=== PATIENT | female | born 1985 | race Caucasian/White ===

== ENCOUNTER 2021-08-20 10:51 | Inpatient (IN) | payer MEDICAID, SELFPAY ==
[2021-08-20 11:32] VITALS: BP 128/78; PULSE 89; RESP 14; TEMP 36.7; BMI 18.8
[2021-08-20 11:41] VITALS: BP 128/78; PULSE 89; RESP 14; TEMP 36.7
--- NOTE | 2021-08-20 11:46 | W.ED.GENADLT ---
HPI - General Adult General: Chief complaint: Psychiatric Symptoms Stated complaint: withdrawing, hallucinations Time Seen by Provider: 08/20/21 11:39 History of Present Illness: HPI: [35]yo patient w/ hx of depression and polysubstance dependence presenting for SI with depression and auditory hallucination. Last used marijuana and meth yesterday On arrival, the patient is AAOx3 and cooperative with my evaluation. No focal complaints of chest pain, shortness of breath, palpitations, N/V, focal GI/ complaints. Currently denies HI. No complaints of hallucinations. Onset: acute Duration: ongoing Location: home Severity: severe Associated symptoms: Deny chest pain, dyspnea, nausea, rash, palpitations or vomiting Review of Systems Const: Denies: fever(s) or chills Eyes: Denies: change in vision ENMT: Denies: mouth pain Card: Denies: chest pain or palpitations Resp: Denies: dyspnea or non-productive cough GI: Denies: abdominal pain, nausea, vomiting or diarrhea : Denies: dysuria Musc: Denies: extremity pain Skin/Breast: Denies: rash or new lesions Neuro: Denies: weakness in extremities Psych: Reports: depression and suicidal ideation Vinod/Lymph: Denies: easy bruising PFSH ED PFSH: Medical History (Updated 08/20/21 @ 11:50 by Myra Lam MD) Auditory hallucination Depression Social History (Updated 08/20/21 @ 11:50 by Myra Lam MD) Smoking and tobacco status: current every day smoker Alcohol intake: current Substance/Drug Use: current Physical Exam Const: COMMON NORMALS: alert HENMT: COMMON NORMALS: atraumatic HEAD & SCALP: atraumatic MOUTH: moist mucous membranes not abnormal Eye: COMMON NORMALS: EOMs intact bilaterally and conjunctivae normal CONJUNCTIVA: Yes conjunctivae normal Neck/C-Spine: COMMON NORMALS: full ROM and supple Resp: COMMON NORMALS: normal respiratory effort and clear to auscultation bilaterally AUSCULTATION: clear to auscultation bilaterally Cardio: COMMON NORMALS: regular rate RATE: regular rate GI: COMMON NORMALS: Soft to palpation and non-tender PALPATION: Yes Soft to palpation Extremity: COMMON NORMALS: full ROM Neuro: SENSORIUM/ORIENTATION: Yes alert MOTOR EXAM: No Abnormal motor strength present and Other motor observations present (no focal motor deficits) Psych: COMMON NORMALS: speech normal SPEECH: Yes normal speech MOOD & AFFECT: Yes depressed mood Course Vital Signs: Vital signs: Vital Signs Temperature 98.0 F 08/20/21 11:41 Pulse Rate 89 08/20/21 11:41 Respiratory Rate 14 08/20/21 11:41 Blood Pressure 128/78 08/20/21 11:41 MDM - General Adult Medical Decision Making [35]yo patient w/ hx of depression and polysubstance abuse presenting for SI with depression. HDS, exam within normal limit Thoughts are linear and organized, and the patient has no AH/VH, or HI. Clinically the patient displays no overt toxidrome; they are well appearing, with low suspicion for toxic ingestion given history and exam. Symptoms unlikely 2/2 anemia, hypothyroidism, infection, or ICH. Workup: CBC, CMP, Lipase, salicylate/tylenol, HCG, UDS, UA Lab findings: wnl [12:30pm] On reassessment, labs and workup wnl. Patient is hemodynamically stable with no acute medical complaints. Case discussed with psychiatric provider [] at [facility] psych inpatient with recommendation for admission Disposition: Psych Discharge Plan Discharge Patient Disposition: Admitted As Inpatient Clinical Impression: Depression with suicidal ideation, Auditory hallucination Condition: Stable Coding Level of Care Code ED Ways Operator for Keren Carrillo
[2021-08-20 12:43] LABS: Add Urine Culture? No; Add Urine Microscopic? YES; Bacteria Urine TRACE /hpf; Bilirubin Urine Neg (Negative); Blood Urine 2+ (Negative); Glucose Urine UA Norm (Normal); Ketones Urine Negative (Negative); Leukocyte Esterase Urine Negative (Negative); Nitrate Urine Negative (Negative); Protein Urine Neg (Negative); RBC Urine 0-4 /hpf (0-2); Specific Gravity, Urine 1.005 (1.005-1.030); Squamous Epithelial Cell Urine 0-4 /hpf (0-5); Urine Appearance Clear (CLEAR); Urine Color Yellow (Yellow); Urobilinogen Urine Norm (Negative); WBC Urine 0-4 /hpf (0-5); pH Urine 7 (5-7)
[2021-08-20 12:50] LABS: Amphetamines Screen Urine Positive (Negative); Barbiturates Screen Urine Negative (Negative); Benzodiazepines Screen Urine Negative (Negative); Cocaine Screen Urine Positive (Negative); Opiate Screen Urine Negative (Negative); PCP Screen Urine Negative (Negative); THC Screen Urine Positive (Negative)
[2021-08-20 13:01] VITALS: BP 125/81; PULSE 88; RESP 17; TEMP 36.8; O2SAT 98
[2021-08-20 13:09] VITALS: BP 128/78; PULSE 89; RESP 14; TEMP 36.7
[2021-08-20 14:00] VITALS: TEMP 36.7
[2021-08-20 14:01] LABS: Basophils # 0.1 10^3/uL (0.0-0.1); Basophils % 1.1 %; Eosinophils # 0.2 10^3/uL (0.0-0.8); Hematocrit 41.4 % (37.0-47.0); Hemoglobin 13.8 g/dL (11.5-15.3); Lymphocytes # 2.2 10^3/uL (0.8-4.8); Lymphocytes % 25.3 %; Mean Corpuscular HGB Conc 33.3 g/dL (30.0-36.0); Mean Corpuscular Hemoglobin 29.9 pg (28.0-34.0); Mean Corpuscular Volume 89.6 fl (81-99); Mean Platelet Volume 8.9 fL (7.4-10.4); Monocytes # 0.4 10^3/uL (0.2-0.9); Neutrophils # 5.69 10^3/uL (1.8-7.7); Neutrophils % 66.4 %; Nucleated Red Blood Cells % 0 %; Platelet Count 465 10^3/cmm (130-400); Red Blood Count 4.62 10^6/uL (4.1-5.3); Red Cell Distribution Width 13.2 % (12.1-15.1); White Blood Count 8.6 10^3/uL (4.0-10.0)
[2021-08-20 14:19] LABS: HCG, Serum Qual Negative (Negative)
--- NOTE | 2021-08-20 14:21 | PC.ADMIT ---
[id number] Admission Note: The patient,Barbara Poe,35 y/o, was given written information regarding hospital policies, unit procedures and contact persons. Patient's smoking status: current every day smoker. Vital Signs - 8 hr 08/20/21 11:32 08/20/21 11:41 08/20/21 13:01 Temperature 98.0 F 98.0 F 98.2 F Pulse Rate 89 89 88 Respiratory Rate 14 14 17 Blood Pressure 128/78 128/78 125/81 Pulse Oximetry 98 08/20/21 13:09 Temperature 98.0 F Pulse Rate 89 Respiratory Rate 14 Blood Pressure 128/78 Pulse Oximetry ADMITTED TO NPU AT 1300 FROM ER VIA WHEELCHAIR AND ER STAFF. STATES SHE IS HERE BECAUSE I'M WITHDRAWLING OFF METH, WEED, COCAINE AND I DID HEROIN A COUPLE DAYS AGO. DOC IS HEROIN BUT STATES I'LL DO ANYTHING THAT'S THERE, I'M TRYING TO HAVE FUN. REPORTS SHE MOVED FROM [facility] 3 DAYS AGO AND NOW LIVES WITH HER PARENTS HERE IN [place]. REPORTS SHE HAS STRUGGLED WITH ADDICTION SINCE SHE WAS A CHILD. CURRENTLY ON NO MEDICATIONS. REPORTS SHE USE TO TAKE SUBOXONE 8 MG TID AND METHADONE 30MG WHEN THE SUBOXONE STOPPED WORKING. ALLERGIC TO TRAMADOL AND SEROQUEL. PT STATES SHE WANTS TO GET BACK ON HER MEDICATION AND GET OFF DRUGS FOR GOOD. LONGEST CLEAN TIME WAS 30 DAYS. UDS + FOR THC, COCAINE AND METHAMPHETAMINE. ORIENTATED TO UNIT. ALL QUESTIONS ANSWERED AND SUPPORT VOICED.
[2021-08-20 14:27] LABS: Alanine Aminotransferase 14 U/L (0-33); Albumin Level 4.2 g/dL (3.5-5.2); Alkaline Phosphatase 65 IU/L (35-105); Anion Gap 11.7 (5-19); Aspartate Amino Transferase 28 U/L (0-32); Blood Urea Nitrogen 11 mg/dL (6-20); Carbon Dioxide 27 mmol/L (22-29); Chloride 104 mmol/L (98-107); Globulin 2.4 g/dL (1.3-4.6); Glomerular Filtration Rate 141.2 mL/min (90-130); Glucose 102 mg/dL (65-115); Lipase 35 U/L (13-60); Osmolality Calculated 288 mOsm/kg (285-295); Potassium 3.7 mmol/L (3.5-5.1); Sodium 139 mmol/L (136-145); Total Bilirubin 0.2 mg/dL (0.15-1.2); Total Protein 6.6 g/dL (6.6-8.7)
[2021-08-20 14:28] LABS: Acetaminophen < 5.0 ug/mL (10-30); Salicylate < 0.3 mg/dL (3-10)
[2021-08-20] MEDS: OLANZapine 5 mg ODT PO (16:27)
[2021-08-20 20:24] VITALS: PULSE 89; RESP 18; O2SAT 98
[2021-08-21 06:00] VITALS: BP 116/82; PULSE 74; RESP 17; O2SAT 97
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
[2021-08-21] MEDS: hyDROXYzine 25 mg Capsule 50 MG PO (11:38)
[2021-08-21 13:32] VITALS: BP 103/73; PULSE 104; RESP 17; TEMP 36.6; O2SAT 97
[2021-08-21] MEDS: buprenorphine-naloxone 4-1 mg Film 1 EACH SUBLINGUAL (14:25)
[2021-08-21] MEDS: nicotine 21 mg Patch 1 PATCH TRANSDERMA (15:11)
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
[2021-08-21 17:02] VITALS: BP 103/73; PULSE 104; RESP 17; TEMP 36.6; O2SAT 97
[2021-08-21] MEDS: ondansetron 4 MG Tablet PO (17:09)
--- NOTE | 2021-08-24 08:31 | PC.OT ---
OT EVALUATION ORDERS RECEIVED. PATIENT DISCHARGED BEFORE EVALUATION COULD BE COMPLETED
== END 2021-08-21 17:35 | disposition home or self-care (01) | DRG 897 ==
LOC: ER 11:45 → NP 12:41
PROVIDERS: Admitting Provider Psychiatry & Neurology Psychiatry; Emergency Provider Emergency Medicine; Visit Provider Psychiatry & Neurology Psychiatry
DX: F15.23 Other stimulant dependence with withdrawal (principal); R45.851 Suicidal ideations; F41.8 Other specified anxiety disorders; F12.10 Cannabis abuse, uncomplicated; F17.210 Nicotine dependence, cigarettes, uncomplicated; F43.10 Post-traumatic stress disorder, unspecified; F11.21 Opioid dependence, in remission
CPT/HCPCS: 80053; 80306; 80307; 81001; 83690; 84703; 85025; 99285; J0573; Q0162

== ENCOUNTER 2021-09-07 20:05 | Emergency (ER) | payer MEDICAID, SELFPAY ==
[2021-09-07 20:10] VITALS: BP 145/86; PULSE 96; RESP 16; TEMP 36.4; O2SAT 97
--- NOTE | 2021-09-07 20:17 | ED_ITS ---
HPI - Nausea/Vomiting/Diarrhea General: Chief complaint: Nausea/Vomiting/Diarrhea Stated complaint: N/V Blood Time Seen by Provider: 09/07/21 20:15 History of Present Illness: Ms. Poe is a 35-year-old lady with significant past medical history of hepatitis C who presents to the emergency department due to hematemesis. She reports 4 days ago having subacute onset of daily episodes of initially watery vomiting and associated abdominal discomfort with constipation. Since that time she has had persistent symptoms until today when she had an episode of bloody emesis. She does have burning epigastric pain. She used [id number] laxative and suppository and did have bowel movement today. Overall intensity symptoms is moderate. Course has persisted. Denies similar episodes in the past. Denies history of recent alcohol abuse. Patient is on methadone for history of opioid abuse. No other specific changes in health, exacerbating, or alleviating factors identified. Onset (ago): day(s) Description of vomiting: watery and bloody Associated nausea: Yes Associated abdominal pain: Yes Location of pain: Epigastric Pain consistency: constant Severity: moderate Quality: other Associated symtoms: Reports nausea Review of Systems General: Reports: 10 or more systems reviewed and unremarkable except in HPI and below GI: Reports: nausea PFSH ED PFSH: Medical History Auditory hallucination Depression Social History Smoking and tobacco status: current every day smoker Alcohol intake: current Physical Exam Const: COMMON NORMALS: alert GENERAL APPEARANCE: cooperative and well developed HENMT: COMMON NORMALS: normocephalic and atraumatic HEAD & SCALP: normocephalic and atraumatic Eye: COMMON NORMALS: conjunctivae normal CONJUNCTIVA: Yes conjunctivae normal SCLERA: sclerae normal Neck/C-Spine: COMMON NORMALS: supple GENERAL: Yes trachea midline Resp: COMMON NORMALS: normal respiratory effort and clear to auscultation bilaterally EFFORT & INSPECTION: Yes able to speak in complete sentences AUSCULTATION: clear to auscultation bilaterally Cardio: COMMON NORMALS: regular rate and regular rhythm RATE: regular rate RHYTHM: regular rhythm GI: COMMON NORMALS: Soft to palpation PALPATION: Yes Soft to palpation and No Tenderness to palpation present (GI) PERCUSSION: normal to percussion Extremity: GENERAL: Yes normal exam except as noted and No edema Neuro: COMMON NORMALS: moves all extremities SENSORIUM/ORIENTATION: Yes alert and No Orientation impaired Psych: COMMON NORMALS: mental status grossly normal and Normal thought process present THOUGHT PROCESS: Normal thought process present Skin: NARRATIVE SKIN EXAM: Bug bite on left neck posteriorly Course ED course: - Patient was seen and evaluated by me at bedside - Patient placed on cardiac monitors, IV access obtained - Initial evaluation notable for exam as above - Labs and xrays personally interpreted by me -Fluids, antiemetic, Protonix given - Labs notable for no leukocytosis, normal hemoglobin. Metabolic panel with perhaps mild evidence of dehydration, BUN normal as well as renal function. Urinalysis with mild hematuria. - Imaging notable for no lobar consolidation or pneumothorax. Constipation noted on CT without other acute pathology to explain symptoms - Upon serial reexamination after treatment the patient was improved though she did out of headache which also improved with treatment - Based on patient history, evaluation, and testing as interpreted the most likely cause of the patient's condition is hematemesis which occurred 1 episode prior to arrival. She had multiple episodes of emesis prior to this and also has epigastric burning pain. Given that she remained vitally satisfactory with normal hemoglobin and tolerated p.o. intake without recurrent emesis I believe that she can safely be discharged for outpatient follow-up with strict return precautions. Most likely etiology either esophagitis/gastritis or ulcer. - The results of ED evaluation were discussed with the patient including prescr iptions and/or symptomatic cares (if applicable) including appropriate and responsible use, followup plan, and return precautions. The patient verbalized understanding and felt safe for discharge. - Patient discharged in satisfactory condition. Note: Click bubbles or prepopulated saavedra in note writing are used for assistance with data collection and billing and are inherently more limited than narrative and other text portions of this note. Please use narrative for additional clinical history and defer to narrative/free test for any case of contradictory information. If information appears in only free text or click bubble it should be considered present or absent as reported. Please contact note insurance underwriter for clarifications of clinical information or contradictory information. MDM is a brief summary, contradictory or erroneous seeming information should be clarified and full note should be reviewed. Vital Signs: Vital signs: Vital Signs Temperature 97.5 F L 09/07/21 20:10 Pulse Rate 64 09/08/21 00:43 Respiratory Rate 16 09/08/21 00:43 Blood Pressure 101/53 09/08/21 00:43 Pulse Oximetry 94 09/08/21 00:43 MDM - Nausea/Vomiting/Diarrhea Medical Decision Making 35-year-old lady presenting with 4 days of emesis and constipation with 1 episode of hematemesis. No history of known cirrhosis though patient does have a history of hep C. Vitally satisfactory. Hemoglobin normal. No recurrence during ED observation and symptoms improved. Plan to discharge with outpatient surgery follow-up for consideration of EGD and initiate PPI. Strict return precautions given. Medical Records I reviewed the patient's medical records. Lab Data I reviewed the patient's lab results. : 09/07/21 20:32 09/07/21 20:32 Radiology Impressions Abdomen/Pelvis CT 09/07/21 20:46 IMPRESSION: 1. Increased fecal content in the colon. 2. Incidental/nonacute findings are listed in the report. Chest X-Ray 09/07/21 20:46 IMPRESSION: No acute cardiopulmonary process. Laboratory Results WBC 7.4 10^3/uL (4.0-10.0) 09/07/21 20:32 RBC 4.61 10^6/uL (4.1-5.3) 09/07/21 20:32 Hgb 13.7 g/dL (11.5-15.3) 09/07/21 20:32 Hct 40.6 % (37.0-47.0) 09/07/21 20:32 MCV 88.1 fl (81-99) 09/07/21 20:32 MCH 29.7 pg (28.0-34.0) 09/07/21 20:32 MCHC 33.7 g/dL (30.0-36.0) 09/07/21 20:32 RDW 12.9 % (12.1-15.1) 09/07/21 20:32 Plt Count 400 10^3/cmm (130-400) 09/07/21 20:32 MPV 9.5 fL (7.4-10.4) 09/07/21 20:32 Neut % (Auto) 50.7 % 09/07/21 20:32 Lymph % (Auto) 32.2 % 09/07/21 20:32 [place] % (Auto) 8.9 % 09/07/21 20:32 Eos % (Auto) 6.2 % 09/07/21 20:32 Baso % (Auto) 1.6 % 09/07/21 20:32 Neut # (Auto) 3.76 10^3/uL (1.8-7.7) 09/07/21 20:32 Lymph # (Auto) 2.4 10^3/uL (0.8-4.8) 09/07/21 20:32 [place] # (Auto) 0.7 10^3/uL (0.2-0.9) 09/07/21 20:32 Eos # (Auto) 0.5 10^3/uL (0.0-0.8) 09/07/21: Baso # (Auto) 0.1 10^3/uL (0.0-0.1) 09/07/21 20:32 Nucleated RBC % (auto) 0 % 09/07/21 20: Nucleated RBCs # 0.0 /100WBC 09/07/21 20:32 PT 12.80 SECONDS (12.1-14.9) 09/07/21 20:32 INR 0.93 (0.8-1.2) 09/07/21 20:32 Sodium 136 mmol/L (136-145) 09/07/21 20:32 Potassium 3.6 mmol/L (3.5-5.1) 09/07/21 20:32 Chloride 95 mmol/L (98-107) L 09/07/21 20:32 Carbon Dioxide 33 mmol/L (22-29) H 09/07/21 20:32 Anion Gap 11.6 (5-19) 09/07/21 20:32 BUN 8 mg/dL (6-20) 09/07/21 20:32 Creatinine 0.4 mg/dL (0.5-0.9) L 09/07/21 20:32 GFR Calculation 182.7 mL/min (90-130) H 09/07/21 20:32 Glucose 79 mg/dL (65-115) 09/07/21 20:32 Calculated Osmolality 279 mOsm/kg (285-295) L 09/07/21 20:32 Calcium 9.4 mg/dL (8.5-10.5) 09/07/21 20:32 Total Bilirubin 0.4 mg/dL (0.15-1.2) 09/07/21 20:32 AST 27 U/L (0-32) 09/07/21 20: ALT 19 U/L (0-33) 09/07/21 20:32 Alkaline Phosphatase 91 IU/L (35-105) 09/07/21 20: Total Protein 7.6 g/dL (6.6-8.7) 09/07/21 20: Albumin 5.0 g/dL (3.5-5.2) 09/07/21 20: Globulin 2.6 g/dL (1.3-4.6) 09/07/21 20: Lipase 41 U/L (13-60) 09/07/21 20: HCG, Qual Negative (Negative) 09/07/21 20: Urine Color Yellow (Yellow) 09/07/21 20: Urine Appearance Clear (CLEAR) 09/07/21 20: Urine pH 7 (5-7) 09/07/21 20: Ur Specific [place] 1.005 (1.005-1.030) 09/07/21 20: Urine Protein Neg (Negative) 09/07/21 20: Urine Glucose (UA) Norm (Normal) 09/07/21 20: Urine Ketones Negative (Negative) 09/07/21 20: Urine Blood 3+ (Negative) H 09/07/21 20: Urine Nitrate Negative (Negative) 09/07/21 20: Urine Bilirubin Neg (Negative) 09/07/21 20: Urine Urobilinogen Norm mg/dL (Negative) 09/07/21 20: Ur Leukocyte Esterase Negative (Negative) 09/07/21 20: Urine RBC 15-25 /hpf (0-2) H 09/07/21 20: Urine WBC 0-4 /hpf (0-5) H 09/07/21 20: Ur Squamous Epith Cells 0-4 /hpf (0-5) H 09/07/21 20: Amorphous Sediment 1+ /hpf 09/07/21 20: Urine Bacteria Trace /hpf (NONE) 09/07/21 20:26 Blood Type O Positive 09/07/21 20:32 Rho(D) Type Positive 09/07/21 20:32 Antibody Screen Negative 09/07/21 20:32 Discharge Plan Discharge Patient Disposition: Home Clinical Impression: Hematemesis, Constipation Condition: Stable Prescriptions: New Protonix 40 mg tablet,delayed release (DR/EC) 40 mg PO BID 14 Days Qty: 28 0RF Miralax 17 gram powder in packet 34 g PO DAILY 7 Days Qty: 14 0RF ondansetron 4 mg tablet,disintegrating 4 mg PO Q8H PRN (Reason: nausea and vomiting) Qty: 15 0RF Discharge Orders: Discharge ED (Routine); Ordered 09/08/21 Ordered By: Luis Manuel Washington Discharge Diet: Advance as tolerated and Clear Liquid Discharge Activity: Increase activity as tolerated Patient Instructions: Constipation (ED), Diet for Stomach Ulcers and Gastritis (ED), Hematemesis (ED) Activity Restrictions/Additional Instructions: Thank you for visiting the emergency department. You were seen and evaluated for vomiting blood. The exact cause of your symptoms is unclear though based on description of symptoms I suspect that you have either gastric ulcer or gastric irritation related to vomiting. Given laboratory findings and physical exam as well as vital signs I do not feel that you need inpatient management at this time. I will refer you for follow-up with general surgery for consideration of endoscopy. Additionally I will refer you for a primary care provider. I recommend clear liquid diet for the next day and then advance as tolerated. Please return to the emergency department for recurrent symptoms or anything else that you are concerned about and feel needs emergency department evaluation. 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
[2021-09-07 20:45] LABS: Basophils # 0.1 10^3/uL (0.0-0.1); Basophils % 1.6 %; Eosinophils # 0.5 10^3/uL (0.0-0.8); Eosinophils % 6.2 %; Hematocrit 40.6 % (37.0-47.0); Hemoglobin 13.7 g/dL (11.5-15.3); Lymphocytes # 2.4 10^3/uL (0.8-4.8); Lymphocytes % 32.2 %; Mean Corpuscular HGB Conc 33.7 g/dL (30.0-36.0); Mean Corpuscular Hemoglobin 29.7 pg (28.0-34.0); Mean Corpuscular Volume 88.1 fl (81-99); Mean Platelet Volume 9.5 fL (7.4-10.4); Monocytes # 0.7 10^3/uL (0.2-0.9); Monocytes % 8.9 %; Neutrophils # 3.76 10^3/uL (1.8-7.7); Neutrophils % 50.7 %; Nucleated Red Blood Cells % 0 %; Platelet Count 400 10^3/cmm (130-400); Red Blood Count 4.61 10^6/uL (4.1-5.3); Red Cell Distribution Width 12.9 % (12.1-15.1); White Blood Count 7.4 10^3/uL (4.0-10.0)
--- NOTE | 2021-09-07 20:46 | XRR_ITS ---
PROCEDURE INFORMATION: Exam: XR Chest Exam date and time: 09/07/2021 9:09 PM Age: 35 years old Clinical indication: Cough; Additional info: SOB, hematemesis TECHNIQUE: Imaging protocol: XR of the chest. Views: 1 view. COMPARISON: CT Abdomen/Pelvis Renal [id number] 08/01/2015 12:10 PM FINDINGS: Lungs: Lungs are clear bilaterally. Pleural spaces: No pleural effusion. No pneumothorax. Heart/Mediastinum: The cardiac silhouette and mediastinal contours are unremarkable. Bones/joints: Unremarkable for age. XR/XR chest 1V portable [id number] IMPRESSION: No acute cardiopulmonary process.
--- NOTE | 2021-09-07 20:46 | CTR_ITS ---
PROCEDURE INFORMATION: Exam: CT Abdomen And Pelvis With Contrast Exam date and time: 09/07/2021 9:23 PM Age: 35 years old Clinical indication: Constipation and vomiting; Patient HX: Hematemesis with no bm x 4 days. History of hep c. ; Additional info: Epigastric pain, hematemesis, HX hep c TECHNIQUE: Imaging protocol: Computed tomography of the abdomen and pelvis with contrast. Sagittal and coronal reformatted images were created and reviewed. Radiation optimization: All CT scans at this facility use at least one of these dose optimization techniques: automated exposure control; mA and/or kV adjustment per patient size (includes targeted exams where dose is matched to clinical indication); or iterative reconstruction. Contrast material: OMNI 350; Contrast volume: 75 ml; Contrast route: INTRAVENOUS (IV); COMPARISON: CT Abdomen/Pelvis Renal [id number] 08/01/2015 12:10 PM RADIATION DOSE METRICS: Total DLP (mGy-cm): 782.42 FINDINGS: Lungs: Visualized lungs are clear. Pleural spaces: No pleural effusion. Heart: Visualized portions of the heart are unremarkable. Liver: The liver is unremarkable. Gallbladder and bile ducts: The gallbladder is unremarkable. No biliary ductal dilatation. Pancreas: The pancreas is unremarkable. No pancreatic ductal dilatation. Spleen: The spleen is unremarkable. Adrenal glands: The right and left adrenal glands are unremarkable. Kidneys and ureters: The right and left kidneys are unremarkable. The right and left ureters are unremarkable. Stomach and bowel: No obstruction. No mucosal thickening. Increased fecal content in the colon. Appendix: The appendix is visualized and is unremarkable. No findings to suggest acute appendicitis. Intraperitoneal space: No free intraperitoneal air. No ascites. No loculated fluid collections to suggest an abscess. Vasculature: No evidence for aortic aneurysm or aortic dissection. Hepatic veins, portal veins, splenic vein, and SMV are patent. Lymph nodes: No lymphadenopathy. Urinary bladder: The bladder is incompletely filled, which can limit evaluation. No focal abnormality in the bladder however. Reproductive: The uterus is unremarkable. Multiple subcentimeter follicles in both right and left ovaries. Bones/joints: Mild degenerative changes in the visualized spine. Mild degenerative changes at both the right and left hips. Soft tissues: Unremarkable. CT/CT abdomen pelvis w con* [id number] IMPRESSION: 1. Increased fecal content in the colon. 2. Incidental/nonacute findings are listed in the report.
[2021-09-07 21:04] LABS: INR 0.93 (0.8-1.2)
[2021-09-07 21:06] LABS: HCG, Serum Qual Negative (Negative)
[2021-09-07 21:08] LABS: Alanine Aminotransferase 19 U/L (0-33); Alkaline Phosphatase 91 IU/L (35-105); Anion Gap 11.6 (5-19); Aspartate Amino Transferase 27 U/L (0-32); Blood Urea Nitrogen 8 mg/dL (6-20); Calcium 9.4 mg/dL (8.5-10.5); Carbon Dioxide 33 mmol/L (22-29); Chloride 95 mmol/L (98-107); Globulin 2.6 g/dL (1.3-4.6); Glomerular Filtration Rate 182.7 mL/min (90-130); Glucose 79 mg/dL (65-115); Lipase 41 U/L (13-60); Osmolality Calculated 279 mOsm/kg (285-295); Potassium 3.6 mmol/L (3.5-5.1); Sodium 136 mmol/L (136-145); Total Bilirubin 0.4 mg/dL (0.15-1.2); Total Protein 7.6 g/dL (6.6-8.7)
[2021-09-07] MEDS: pantoprazole 40 mg SDV 80 MG IVP (21:08)
[2021-09-07] MEDS: ondansetron 2 mg/ML SDV 2 mL 4 MG IVP (21:08)
[2021-09-07] MEDS: sodium chloride 0.9% 1,000 ML 999 ML IV (21:10)
[2021-09-07] MEDS: iohexol 300 mg/mL 100 mL Btl IV (21:24)
[2021-09-07 21:25] LABS: Add Urine Microscopic? YES; Bilirubin Urine Neg (Negative); Blood Urine 3+ (Negative); Glucose Urine UA Norm (Normal); Ketones Urine Negative (Negative); Leukocyte Esterase Urine Negative (Negative); Nitrate Urine Negative (Negative); Protein Urine Neg (Negative); Specific Gravity, Urine 1.005 (1.005-1.030); Urine Appearance Clear (CLEAR); Urine Color Yellow (Yellow); Urobilinogen Urine Norm (Negative); pH Urine 7 (5-7)
[2021-09-07 21:26] LABS: Add Urine Culture? Yes; Amorphous Sediment Urine 1+ /hpf; Bacteria Urine TRACE /hpf; RBC Urine 15-25 /hpf (0-2); Squamous Epithelial Cell Urine 0-4 /hpf (0-5); WBC Urine 0-4 /hpf (0-5)
[2021-09-07] MEDS: lidocaine 2% viscous 15 ML, aluminum-mag hydrox-simethicon 30 ML, sucralfate oral liq 1 GM PO (21:59)
[2021-09-07 22:00] VITALS: BP 102/59; PULSE 65; O2SAT 99
[2021-09-07 23:00] VITALS: BP 95/45; PULSE 79; O2SAT 95
[2021-09-07] MEDS: ketorolac 30 mg/mL INJ 15 MG IVP (23:33)
[2021-09-07] MEDS: acetaminophen 500 mg Tablet 1000 MG PO (23:33)
[2021-09-08] VITALS: BP 101/53; PULSE 64; O2SAT 94
[2021-09-08 00:43] VITALS: BP 101/53; PULSE 64; RESP 16; O2SAT 94
--- NOTE | 2021-09-08 14:18 | DCPLANNER ---
Addendum entered by Aleisha Wayne 10/15/21 17:14: care manager was sent the following message about patient referral: Patient will call us when she has everything lined out. She stated she just moved here and she doesn't have any money right now and wanting to get her Financial means underway before scheduling. Original Note: care manager had message to schedule a follow up appointment for patient with general surgery. care manager sent patients information to the front office staff at general surgery. Patients information will be printed and reviewed. Clinic will call patient with appointment information. care manager also had message to speak with patient about getting established with a primary care physician. care manager unable to speak with patient at this time.
== END 2021-09-08 00:44 | disposition home or self-care (01) ==
PROVIDERS: Physician Assistant; Emergency Provider Emergency Medicine
DX: K92.0 Hematemesis (principal); K59.00 Constipation, unspecified; R10.13 Epigastric pain; Z86.19 Personal history of other infectious and parasitic diseases
CPT/HCPCS: 71045; 74177; 80053; 81001; 83690; 84703; 85025; 85610; 86850; 86900; 87086; 96361; 96374; 96375; 99284; C9113; J1885; J2405; J7030; Q9967

== ENCOUNTER 2021-12-14 18:22 | Inpatient (IN) | payer BC, SELFPAY ==
[2021-12-14 18:27] VITALS: BMI 21.4
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
[2021-12-14 19:00] LABS: Basophils # 0.1 10^3/uL (0.0-0.1); Basophils % 0.6 %; Eosinophils % 0.4 %; Hemoglobin 13.3 g/dL (11.5-15.3); Lymphocytes # 2.5 10^3/uL (0.8-4.8); Lymphocytes % 26.7 %; Mean Corpuscular HGB Conc 33.3 g/dL (30.0-36.0); Mean Corpuscular Hemoglobin 29.2 pg (28.0-34.0); Mean Corpuscular Volume 87.9 fl (81-99); Mean Platelet Volume 9.5 fL (7.4-10.4); Monocytes # 0.6 10^3/uL (0.2-0.9); Monocytes % 5.9 %; Neutrophils # 6.11 10^3/uL (1.8-7.7); Neutrophils % 66.2 %; Nucleated Red Blood Cells % 0 %; Platelet Count 377 10^3/cmm (130-400); Red Blood Count 4.55 10^6/uL (4.1-5.3); Red Cell Distribution Width 12.1 % (12.1-15.1); White Blood Count 9.3 10^3/uL (4.0-10.0)
[2021-12-14] MEDS: hyDROXYzine 25 mg Capsule PO (19:19)
[2021-12-14 19:21] LABS: HCG Qualitative Urine. Negative (Negative)
[2021-12-14 19:23] LABS: Alanine Aminotransferase 38 U/L (0-33); Albumin Level 4.2 g/dL (3.5-5.2); Alkaline Phosphatase 102 U/L (35-105); Anion Gap 14.5 (5-19); Aspartate Amino Transferase 43 U/L (0-32); Blood Urea Nitrogen 10 mg/dL (6-20); Calcium 9.5 mg/dL (8.5-10.5); Carbon Dioxide 24 mmol/L (22-29); Chloride 102 mmol/L (98-107); Globulin 2.6 g/dL (1.3-4.6); Glomerular Filtration Rate 113.8 mL/min (90-130); Glucose 107 mg/dL (65-115); Osmolality Calculated 284 mOsm/kg (285-295); Potassium 3.5 mmol/L (3.5-5.1); Sodium 137 mmol/L (136-145); Total Bilirubin 0.3 mg/dL (0.15-1.2); Total Protein 6.8 g/dL (6.6-8.7)
[2021-12-14 19:25] LABS: Acetaminophen < 5.0 ug/mL (10-30); Salicylate < 0.3 mg/dL (3-10)
[2021-12-14 19:38] LABS: SARS Covid-2 Antigen Negative (Negative)
[2021-12-14 20:23] LABS: Blood Urine 3+ (Negative); Glucose Urine UA Norm (Normal); Ketones Urine 1+ (Negative); Protein Urine Trace (Negative); Urine Appearance Cloudy (CLEAR); Urine Color Yellow (Yellow); pH Urine 5 (5-7)
[2021-12-14 20:24] LABS: Add Urine Microscopic? YES; Bilirubin Urine 1+ (Negative); Leukocyte Esterase Urine Trace (Negative); Nitrate Urine Negative (Negative); Urobilinogen Urine 1 mg/dL (Negative)
[2021-12-14 20:28] LABS: Amphetamines Screen Urine Negative (Negative); Barbiturates Screen Urine Negative (Negative); Benzodiazepines Screen Urine Negative (Negative); Cocaine Screen Urine Negative (Negative); Opiate Screen Urine Negative (Negative); PCP Screen Urine Negative (Negative); THC Screen Urine Positive (Negative)
[2021-12-14 20:30] LABS: RBC Urine 15-25 /hpf (0-2); Squamous Epithelial Cell Urine TOO NUMEROUS TO CNT /hpf (0-5); WBC Urine 0-4 /hpf (0-5)
[2021-12-14 20:31] LABS: Add Urine Culture? No; Amorphous Sediment Urine 1+ /hpf; Bacteria Urine 1+ /hpf
--- NOTE | 2021-12-14 20:53 | PC.NURSE ---
Ntfd pt that we do not have a rehab unit and that it would be best for her to seek help from [facility] in [place]. Offered to give pt handouts with info about [facility]. Pt states If I go home then I will hurt myself . Ntfd provider.
[2021-12-14 21:51] VITALS: BP 105/56; PULSE 80; RESP 16; O2SAT 97
[2021-12-14 22:45] VITALS: BP 105/58; PULSE 69; RESP 16; TEMP 36.7; O2SAT 99
--- NOTE | 2021-12-15 02:58 | ECG_ITS ---
[facility] Test Date: 2021-12-15 Pat Name: Barbara Poe Department: Room: Gender: Female [employer]: : 1985 Requested By: Elie Yadav Order Number: [id number] Kristin MD: Phyllis Washington M.D. Measurements Intervals [place] Rate: 53 P: 67 [place]: 174 QRS: 70 QRSD: 82 T: 69 QT: 418 QTc: 396 Interpretive Statements SINUS BRADYCARDIA WITH SINUS ARRHYTHMIA No previous ECG available for comparison Electronically Signed On 12-15-2021 12:47:12 CDT by Phyllis Washington M.D. [email or web address]
[2021-12-15 06:23] VITALS: BP 109/59; PULSE 78; RESP 16; O2SAT 98
[2021-12-15] MEDS: LORazepam 2 mg Tablet PO (07:33)
[2021-12-15 09:09] VITALS: BP 90/56; PULSE 94; O2SAT 98
[2021-12-15 13:30] VITALS: RESP 16; O2SAT 98
[2021-12-15] MEDS: multivitamin therapeutic Tablet 1 TAB PO (13:30)
[2021-12-15] MEDS: thiamine 100 mg Tablet PO (13:30)
[2021-12-15] MEDS: methadone 10 mg Tablet 90 MG PO (13:30)
[2021-12-15] MEDS: folic acid 1 mg Tablet PO (13:30)
[2021-12-15] MEDS: venlafaxine ER (24HR) 75 mg Capsule PO (13:30)
[2021-12-15 14:00] VITALS: BP 102/59; PULSE 63; RESP 16; TEMP 36.8; O2SAT 97
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
[2021-12-15] MEDS: nicotine 2 mg Gum BUCCAL (16:47)
[2021-12-15] MEDS: hyDROXYzine 25 mg Capsule 50 MG PO ×2 (19:02→21:27)
[2021-12-15 20:20] VITALS: BP 110/72; PULSE 69; RESP 18; TEMP 36.5; O2SAT 99
[2021-12-15] MEDS: trazodone 50 mg Tablet PO (21:25)
[2021-12-15] MEDS: OLANZapine 5 mg ODT PO (21:25)
[2021-12-16 06:00] VITALS: BP 77/43; PULSE 63; RESP 17; TEMP 36.7; O2SAT 97
[2021-12-16 06:55] VITALS: BP 80/47
[2021-12-16 09:45] VITALS: RESP 16
[2021-12-16] MEDS: folic acid 1 mg Tablet PO (09:45)
[2021-12-16] MEDS: venlafaxine ER (24HR) 75 mg Capsule PO (09:45)
[2021-12-16] MEDS: methadone 10 mg Tablet 90 MG PO (09:45)
[2021-12-16] MEDS: thiamine 100 mg Tablet PO (09:45)
[2021-12-16] MEDS: multivitamin therapeutic Tablet 1 TAB PO (09:45)
[2021-12-16 14:00] VITALS: BP 102/64; PULSE 64; RESP 16; TEMP 36.8; O2SAT 97
[2021-12-16] MEDS: propranolol 20 mg Tablet PO (14:16)
[2021-12-16] MEDS: nicotine 2 mg Gum BUCCAL ×2 (14:16→20:10)
[2021-12-16] MEDS: nicotine 4 mg lozenge MUCOUS MEM ×2 (15:23→20:22)
--- NOTE | 2021-12-16 18:26 | P.NPUPN_ITS ---
Subjective NPU Subjective: Patient is today reporting that things are going a little better. She connected with the treatment team and was very happy to have a list of the resources in town including shelters and sober living facilities. Reports medications are working fine and she is working with the team to figure out the best option for her that would allow her to continue to work and continue to get to her appointments at the methadone clinic. We discussed the risk benefits and alternatives of initiating propranolol 20 mg p.o. 3 times daily as needed and she understood and agreed proceed as documented in this note. Mental Status Exam MSE Comments: This is a underweight white female in hospital scrubs with adeq uate grooming and eye contact. No abnormal movements. Cooperative with exam in mild distress. Speech was normal rate and volume. Mood described as okay but anxious, affect congruent. Thought process organized, thought content: patient denies suicidal or homicidal ideation, there were no delusions reported or noted, she denied any auditory or visual hallucinations. Attention and concentration were intact and memory appeared reliable but none were formally tested. She?s alert and oriented times three. Insight and judgment appeared fair and impulse control appeared fair Vitals/I&O/Wt Last Vital Signs Temp 98.3 F 12/16/21 20:38 Pulse 67 12/16/21 20:38 Resp 17 12/16/21 20:38 BP 112/65 12/16/21 20:38 Pulse Ox 94 12/16/21 20:38 O2 Del Method 12/15/21 09:25 Data NPU : 12/14/21 18:49 12/14/21 18:49 A&P Assessment and plan (1) Depression with suicidal ideation: Status: Resolved (2) PTSD (post-traumatic stress disorder): Status: Acute (3) Opioid use disorder, severe, in early remission: Status: Acute (4) Methamphetamine use disorder, severe: Status: Acute (5) Suicidal ideation: Status: Acute (6) Depression: Status: Acute Plan This is a 36 ssaelqy-lalo-pea white female with a long history of addiction, trauma and depression who presents after a conflict with her father that led to her being in intermediate, now homeless and looking to be connected to resources. 1. Continue current medication including methadone and Effexor XR. Start propranolol 10 mg p.o. 3 times daily as needed. 2. Continue every 15 minute checks for safety. 3. Encourage individual, group and milieu therapies. 4. Encourage sober living treatment after discharge at the highest level of care to which he is willing to commit. 5. We will collaborate with social work team to assist in finding safe discharge options. Involuntary Hold Information 96 Hour Hold: 96 Hour Involuntary Admission: No Attestations NPU Medical Necessity Statement*: Inpatient hospitalization is medically necessary and the clinically appropriate intervention at this time. We will monitor me dication to make changes as indicated. Likely length of stay 3 to 5 days. Coding Level of Care Code Acute [employer] Maintainer for [facility] Fwd Diagnoses Depression with suicidal ideation F32.A; R45.851 PTSD (post-traumatic stress disorder) F43.10 Opioid use disorder, severe, in early remission F11.21 Methamphetamine use disorder, severe F15.20 Suicidal ideation R45.851 Depression F32.A
[2021-12-16] MEDS: hyDROXYzine 25 mg Capsule 50 MG PO (20:10)
[2021-12-16] MEDS: trazodone 50 mg Tablet PO (20:10)
[2021-12-16 20:38] VITALS: BP 112/65; PULSE 67; RESP 17; TEMP 36.8; O2SAT 94
[2021-12-17 07:20] VITALS: BP 103/66; PULSE 67; RESP 14; TEMP 36.9; O2SAT 98
[2021-12-17 08:22] VITALS: RESP 17; O2SAT 94
[2021-12-17] MEDS: methadone 10 mg Tablet 90 MG PO (08:22)
[2021-12-17] MEDS: nicotine 4 mg lozenge MUCOUS MEM ×3 (08:24→15:14)
[2021-12-17] MEDS: venlafaxine ER (24HR) 75 mg Capsule PO ×2 (08:25→11:30)
[2021-12-17] MEDS: thiamine 100 mg Tablet PO (08:25)
[2021-12-17] MEDS: propranolol 20 mg Tablet PO ×2 (08:25→16:20)
[2021-12-17] MEDS: folic acid 1 mg Tablet PO (08:25)
[2021-12-17] MEDS: multivitamin therapeutic Tablet 1 TAB PO (08:25)
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
[2021-12-17 14:00] VITALS: BP 96/65; PULSE 72; RESP 16; TEMP 36.7; O2SAT 97
[2021-12-17 19:36] VITALS: BP 101/64; PULSE 68; RESP 16; TEMP 36.8; O2SAT 100
[2021-12-17] MEDS: hyDROXYzine 25 mg Capsule 50 MG PO (20:14)
[2021-12-17] MEDS: trazodone 50 mg Tablet PO (22:01)
[2021-12-18 06:00] VITALS: BP 100/66; PULSE 65; RESP 18; TEMP 36.7; O2SAT 100
[2021-12-18 09:39] VITALS: RESP 18
[2021-12-18] MEDS: venlafaxine ER (24HR) 150 mg Capsule PO (09:39)
[2021-12-18] MEDS: thiamine 100 mg Tablet PO (09:39)
[2021-12-18] MEDS: methadone 10 mg Tablet 90 MG PO (09:39)
[2021-12-18] MEDS: multivitamin therapeutic Tablet 1 TAB PO (09:39)
[2021-12-18] MEDS: folic acid 1 mg Tablet PO (09:39)
[2021-12-18] MEDS: nicotine 4 mg lozenge MUCOUS MEM ×2 (11:12→17:52)
[2021-12-18 14:00] VITALS: BP 125/83; PULSE 62; RESP 16; TEMP 36.8; O2SAT 97
[2021-12-18] MEDS: hyDROXYzine 25 mg Capsule 50 MG PO ×2 (15:01→20:22)
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
[2021-12-18 20:15] VITALS: BP 117/75; PULSE 67; RESP 16; TEMP 37.6; O2SAT 98
[2021-12-18] MEDS: trazodone 50 mg Tablet PO (20:22)
[2021-12-19 06:00] VITALS: BP 93/49; PULSE 52; RESP 16; TEMP 36.9; O2SAT 95; BMI 21.4
[2021-12-19 08:43] VITALS: RESP 18; O2SAT 98
[2021-12-19] MEDS: folic acid 1 mg Tablet PO (08:43)
[2021-12-19] MEDS: methadone 10 mg Tablet 90 MG PO (08:43)
[2021-12-19] MEDS: thiamine 100 mg Tablet PO (08:43)
[2021-12-19] MEDS: multivitamin therapeutic Tablet 1 TAB PO (08:43)
[2021-12-19] MEDS: venlafaxine ER (24HR) 150 mg Capsule PO (08:43)
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
[2021-12-19] MEDS: nicotine 21 mg Patch 1 PATCH TRANSDERMA (09:41)
[2021-12-19] MEDS: acetaminophen 325 mg Tablet 650 MG PO (12:52)
[2021-12-19 14:00] VITALS: BP 102/59; PULSE 72; RESP 16; TEMP 36.8; O2SAT 99
[2021-12-19] MEDS: nicotine 4 mg lozenge MUCOUS MEM ×2 (15:24→20:30)
[2021-12-19 20:01] VITALS: BP 97/59; PULSE 70; RESP 14; TEMP 36.6; O2SAT 100
[2021-12-19] MEDS: hyDROXYzine 25 mg Capsule 50 MG PO (20:30)
[2021-12-20 06:00] VITALS: BP 101/61; PULSE 63; RESP 14; TEMP 36.4; O2SAT 95
[2021-12-20] MEDS: nicotine 21 mg Patch 1 PATCH TRANSDERMA (08:33)
[2021-12-20] MEDS: acetaminophen 325 mg Tablet 650 MG PO (08:33)
[2021-12-20 08:34] VITALS: RESP 18; O2SAT 96
[2021-12-20] MEDS: venlafaxine ER (24HR) 150 mg Capsule PO (08:34)
[2021-12-20] MEDS: methadone 10 mg Tablet 90 MG PO (08:34)
[2021-12-20] MEDS: thiamine 100 mg Tablet PO (08:34)
[2021-12-20] MEDS: multivitamin therapeutic Tablet 1 TAB PO (08:34)
[2021-12-20] MEDS: folic acid 1 mg Tablet PO (08:34)
[2021-12-20 14:00] VITALS: BP 109/63; PULSE 67; RESP 18; TEMP 36.6; O2SAT 97
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
[2021-12-20 15:19] VITALS: BP 109/63; PULSE 67; RESP 18; TEMP 36.6; O2SAT 97
== END 2021-12-20 16:25 | disposition home or self-care (01) | DRG 881 ==
LOC: ER 12-15 08:11 → NP 12-15 13:56
PROVIDERS: Student in an Organized Health Care Education/Training Program; Admitting Provider Psychiatry & Neurology Psychiatry; Emergency Provider Family Medicine; Visit Provider Psychiatry & Neurology Psychiatry
DX: F32.A Depression, unspecified (principal); R44.0 Auditory hallucinations; R45.851 Suicidal ideations; F15.20 Other stimulant dependence, uncomplicated; F11.20 Opioid dependence, uncomplicated; F43.10 Post-traumatic stress disorder, unspecified; F17.210 Nicotine dependence, cigarettes, uncomplicated; Z81.8 Family history of other mental and behavioral disorders; Z59.00 Homelessness unspecified
CPT/HCPCS: 80053; 80306; 80307; 81001; 81025; 85025; 87426; 93005; 97150; 97165; 99285

== ENCOUNTER → 2023-08-01 10:11 | Outpatient (BNVA) | payer BC, MEDICAID, SELFPAY | PROVIDERS: PCP Family Medicine; Referring Provider Nurse Practitioner Psychiatric/Mental Health; Visit Provider Internal Medicine Cardiovascular Disease | DX: Z79.899 Other long term (current) drug therapy (principal) | CPT/HCPCS: 93005 ==

== ENCOUNTER → 2023-08-16 08:48 | Outpatient (BNVA) | payer BC, MEDICAID, SELFPAY | PROVIDERS: PCP Family Medicine; Visit Provider Nurse Practitioner Psychiatric/Mental Health | DX: R94.31 Abnormal electrocardiogram [ECG] [EKG] (principal); Z79.899 Other long term (current) drug therapy; F43.12 Post-traumatic stress disorder, chronic; F11.20 Opioid dependence, uncomplicated; F15.11 Other stimulant abuse, in remission; F12.90 Cannabis use, unspecified, uncomplicated; F17.290 Nicotine dependence, other tobacco product, uncomplicated | CPT/HCPCS: 80053; 80061; 80307; 83036 ==

== ENCOUNTER 2023-11-08 01:35 | Emergency (ER) | payer BC, MEDICAID, SELFPAY ==
[2023-11-08] VITALS (10 sets, daily range): BP systolic 106–133; BP diastolic 62–74; PULSE 58–74; RESP 10–19; TEMP 36.7; O2SAT 94–100; BMI 19.7
[2023-11-08 01:54] LABS: Basophils # 0.1 10^3/uL (0.0-0.1); Eosinophils # 0.1 10^3/uL (0.0-0.8); Eosinophils % 0.4 %; Hematocrit 47.5 % (36-47); Lymphocytes # 2.9 10^3/uL (0.8-4.8); Lymphocytes % 24.7 %; Mean Corpuscular HGB Conc 32.6 g/dL (30-55); Monocytes # 0.5 10^3/uL (0.2-0.9); Neutrophils # 8.21 10^3/uL (1.8-7.7); Neutrophils % 69.7 %; Nucleated Red Blood Cells % 0 %; Platelet Count 341 10^3/cmm (157-399); Red Blood Count 5.34 10^6/uL (3.85-5.65); Red Cell Distribution Width 12.5 % (12.1-15.1); White Blood Count 11.78 10^3/uL (3.29-11.43)
[2023-11-08 02:10] LABS: HCG, Serum Qual Negative (Negative)
[2023-11-08 02:20] LABS: Alanine Aminotransferase 12 U/L (0-33); Albumin Level 4.9 g/dL (3.5-5.2); Alkaline Phosphatase 88 U/L (35-105); Anion Gap 25.8 (5-19); Aspartate Amino Transferase 19 U/L (0-32); Blood Urea Nitrogen 21 mg/dL (6-20); Calcium 10.3 mg/dL (8.5-10.5); Carbon Dioxide 18 mmol/L (22-29); Chloride 99 mmol/L (98-107); Creatinine Clr Calc Pharmacy 82.3919; Glomerular Filtration Rate 81.2 mL/min (90-130); Glucose 70 mg/dL (65-115); Lipase 58 U/L (13-60); Osmolality Calculated 289 mOsm/kg (285-295); Potassium 3.8 mmol/L (3.5-5.1); Sodium 139 mmol/L (136-145); Total Bilirubin 0.7 mg/dL (0.15-1.2); Total Protein 7.9 g/dL (6.6-8.7)
[2023-11-08 02:27] LABS: Procalcitonin 0.07 ng/mL (0-0.5)
[2023-11-08 02:28] LABS: Lactic Sepsis W/Reflex 4.8 mmol/L (0.5-2.2)
--- NOTE | 2023-11-08 02:41 | W.ED.WEAKNES ---
HPI - Weakness General: Chief complaint: Weakness Stated complaint: WEAKNESS Time Seen by Provider: 11/08/23 01:38 History of Present Illness: 37-year-old female with history of chronic pain syndrome methadone who presents emergency room with nausea and vomiting and dysuria. She says she been feeling bad for couple days now. She had been keeping things down. Said she became so weak she could barely move. No altered mental status. No focal motor deficits. No chest pain. No focal abdominal pain. No diarrhea. Review of Systems Narrative: Constitutional symptoms: Negative except as documented in HPI. Skin symptoms: Negative except as documented in HPI. Eye symptoms: Negative except as documented in HPI. ENMT symptoms: Negative except as documented in HPI. Respiratory symptoms: Negative except as documented in HPI. Cardiovascular symptoms: Negative except as documented in HPI. Gastrointestinal symptoms: Negative except as documented in HPI. Genitourinary symptoms: Negative except as documented in HPI. Musculoskeletal symptoms: Negative except as documented in HPI. Neurologic symptoms: Negative except as documented in HPI. Psychiatric symptoms: Negative except as documented in HPI. Endocrine symptoms: Negative except as documented in HPI. PFS ED PFSH: Medical History (Updated 11/08/23 @ 04:43 by Sarah Reyes MD) Methamphetamine abuse in remission Marijuana use, episodic Vaping nicotine dependence, tobacco product Long-term current use of methadone for opiate dependence Chronic post-traumatic stress disorder Psychiatric care Social History Smoking and tobacco/nicotine status: current every day tobacco/nicotine user Alcohol intake: current Substance/Drug Use: current Female Reproductive History: Date of last menstrual period: 10/09/23 Physical Exam Narrative: EXAM NARRATIVE: General: Alert, no acute distress. Skin: Warm, dry. Head: Normocephalic, atraumatic. Neck: Supple, trachea midline. Eye: Extraocular movements are intact. Ears, nose, mouth and throat: Dry oral mucosa Cardiovascular: Regular, Normal peripheral perfusion. Respiratory: Lungs are clear to auscultation, respirations are non-labored, breath sounds are equal, Symmetrical chest wall expansion. Gastrointestinal: Soft, Nontender, Non distended Musculoskeletal: Normal ROM, no deformity. Neurological: Alert and oriented, No focal neurological deficit observed. Psychiatric: Cooperative, appropriate mood & affect. Course Vital Signs: Vital signs: Vital Signs Temperature 98.0 F 11/08/23 01:36 Pulse Rate 70 11/08/23 01:36 Respiratory Rate 18 11/08/23 01:36 Blood Pressure 114/71 11/08/23 01:36 Pulse Oximetry 100 11/08/23 01:36 Oxygen Delivery Me thod Room Air 11/08/23 01:36 MDM - Weakness Medical Decision Making Medical decision making: Differential diagnosis for patient presenting with generalized weakness including but not limited to and based on the above HPI, review of systems and physical exam: Sepsis. Dehydration. Renal failure. Electrolyte abnormalities. Anemia. Congestive heart failure. Hypotension. Coronary syndrome. Hepatitis. Cirrhosis. Infections such as pneumonia, urinary tract infection, [place]ne illness, Cellulitis, Viral infections including influenza and Covid-19. Workup: labwork and lab/exam driven imaging ordered to evaluate, rule in and rule out above pathologies. EKG: Time 1:48 AM. Rate 56. Sinus bradycardia, No ST-T changes, no ectopy, normal UT & QRS intervals, This was reviewed and interpreted by myself the ER physician at 1:50 AM Lab Review: Laboratory results were reviewed and interpreted by myself the emergency room physician. Leukocytosis with white count of 12,000. BUN is elevated at 21 with creatinine is 0.8. This would indicate some dehydration. Lipase is negative. Liver enzymes are normal. Urine only has 0-5 whites. But she has symptoms and so treating for urinary tract infection. Also could be marijuana use is causing her vomiting. She has no pain in her abdomen. So not doing any imaging. Lipase was negative. I reviewed the patient's medical record. Reexamination: Patient remained stable. No increased work of breathing. No altered mental status. No focal motor deficits. Assessment and plan: Vomiting Dehydration Urinary tract infection ?2 L normal saline bolus and cefepime in the emergency room. Home on Keflex. - Discharged home - Discussed findings and plan with patient. Answered any questions. - All laboratory values were reviewed and interpreted personally by myself, the ER physician - Evaluation and treatment of this problem were appropriate in the emergency setting Lab Data 11/08/23 01:15 11/08/23 01:15 Laboratory Results WBC 11.78 10^3/uL (3.29-11.43) H 11/08/23 01:15 RBC 5.34 10^6/uL (3.85-5.65) 11/08/23 01:15 Hgb 15.50 g/dL (11.27-16.99) 11/08/23 01:15 Hct 47.5 % (36-47) H 11/08/23 01:15 MCV 89.0 fl (85-98) 11/08/23 01:15 MCH 29.0 pg (27-33) 11/08/23 01:15 MCHC 32.6 g/dL (30-55) 11/08/23 01:15 RDW 12.5 % (12.1-15.1) 11/08/23 01:15 Plt Count 341 10^3/cmm (157-399) 11/08/23 01:15 MPV 10.0 fL (7.4-10.4) 11/08/23 01:15 Neut % (Auto) 69.7 % 11/08/23 01:15 Lymph % (Auto) 24.7 % 11/08/23 01:15 Morgan % (Auto) 4.0 % 11/08/23 01:15 Eos % (Auto) 0.4 % 11/08/23 01:15 Baso % (Auto) 1.0 % 11/08/23 01:15 Neut # (Auto) 8.21 10^3/uL (1.8-7.7) H 11/08/23 01:15 Lymph # (Auto) 2.9 10^3/uL (0.8-4.8) 11/08/23 01:15 Morgan # (Auto) 0.5 10^3/uL (0.2-0.9) 11/08/23 01:15 Eos # (Auto) 0.1 10^3/uL (0.0-0.8) 11/08/23 01:15 Baso # (Auto) 0.1 10^3/uL (0.0-0.1) 11/08/23 01:15 Nucleated RBC % (auto) 0 % 11/08/23 01:15 Nucleated RBCs # 0.0 /100WBC 11/08/23 01:15 Sodium 139 mmol/L (136-145) 11/08/23 01:15 Potassium 3.8 mmol/L (3.5-5.1) 11/08/23 01:15 Chloride 99 mmol/L (98-107) 11/08/23 01:15 Carbon Dioxide 18 mmol/L (22-29) L 11/08/23 01:15 Anion Gap 25.8 (5-19) H 11/08/23 01:15 BUN 21 mg/dL (6-20) H 11/08/23 01:15 Creatinine 0.8 mg/dL (0.5-0.9) 11/08/23 01:15 GFR Calculation 81.2 mL/min (90-130) L 11/08/23 01:15 Glucose 70 mg/dL (65-115) 11/08/23 01:15 Calculated Osmolality 289 mOsm/kg (285-295) 11/08/23 01:15 Lactic Acid 4.8 mmol/L (0.5-2.2) H* 11/08/23 01:15 Lactic Acid (Sepsis) 2.2 mmol/L (0.5-2.2) 11/08/23 04:07 Calcium 10.3 mg/dL (8.5-10.5) 11/08/23 01:15 Total Bilirubin 0.7 mg/dL (0.15-1.2) 11/08/23 01:15 AST 19 U/L (0-32) 11/08/23 01:15 ALT 12 U/L (0-33) 11/08/23 01:15 Alkaline Phosphatase 88 U/L (35-105) 11/08/23 01:15 C-Reactive Protein 3.0 mg/L (0.0-4.9) 11/08/23 01:15 Total Protein 7.9 g/dL (6.6-8.7) 11/08/23 01:15 Albumin 4.9 g/dL (3.5-5.2) 11/08/23 01:15 Globulin 3.0 g/dL (1.3-4.6) 11/08/23 01:15 Lipase 58 U/L (13-60) 11/08/23 01:15 Procalcitonin 0.07 ng/mL (0-0.5) 11/08/23 01:15 HCG, Qual Negative (Negative) 11/08/23 01:15 Urine Color Yellow (Yellow) 11/08/23 03:54 Urine Appearance Clear (CLEAR) 11/08/23 03:54 Urine pH 5.0 (5-7) 11/08/23 03:54 Ur Specific [place] 1.023 (1.005-1.030) 11/08/23 03:54 Urine Protein Negative (Negative) 11/08/23 03:54 Urine Glucose (UA) Negative (Normal) 11/08/23 03:54 Urine Ketones 4+ (Negative) 11/08/23 03:54 Urine Blood 2+ (Negative) A 11/08/23 03:54 Urine Nitrate Negative (Negative) 11/08/23 03:54 Urine Bilirubin Negative (Negative) 11/08/23 03:54 Urine Urobilinogen 1.0 mg/dL (Negative) 11/08/23 03:54 Ur Leukocyte Esterase Negative (Negative) 11/08/23 03:54 Urine RBC 3-5 /hpf (0-2) 11/08/23 03:54 Urine WBC 0-5 /hpf (0-5) 11/08/23 03:54 Ur Squamous Epith Cells 6-10 /hpf (0-5) 11/08/23 03:54 Amorphous Sediment Not Reportable 11/08/23 03:54 Urine Bacteria None seen /hpf (NONE) 11/08/23 03:54 Hyaline Casts 1.65 /lpf 11/08/23 03:54 Urine Opiates Screen Negative ng/mL (Negative) 11/08/23 03:54 Ur Barbiturates Screen Negative ng/mL (Negative) 11/08/23 03:54 Ur Phencyclidine Scrn Negative ng/mL (Negative) 11/08/23 03:54 Ur Amphetamines Screen Negative ng/mL (Negative) 11/08/23 03:54 U Benzodiazepines Scrn Negative ng/mL (Negative) 11/08/23 03:54 Urine Cocaine Screen Negative ng/mL (Negative) 11/08/23 03:54 U Marijuana (THC) Screen Positive ng/mL (Negative) H 11/08/23 03:54 No radiology studies performed this visit Discharge Plan Discharge Patient Disposition: Home Clinical Impression: Dehydration, Vomiting, Urinary tract infection, Long-term current use of methadone for opiate dependence Condition: Stable Prescriptions: New promethazine 25 mg suppository 25 mg UT Q6H PRN (Reason: nausea and vomiting) Qty: 12 0RF ondansetron 8 mg tablet,disintegrating 8 mg PO Q6H Qty: 14 0RF Rx Instructions: Take 1/2-1 tab every 6 hours as needed for nausea and vomiting cephalexin 500 mg capsule 500 mg PO BID 5 Days Qty: 10 0RF No Action methadone 40 mg tablet,soluble 40 mg PO .morning methadone 10 mg tablet 25 mg PO .morning Discharge Orders: Discharge ED (Routine); Ordered 11/08/23 Ordered By: Sarah Reyes Referrals: Richard Tierney MD [Primary Care Provider] - Discharge Diet: Advance as tolerated Patient Instructions: Urinary Tract Infection in Women (ED) Activity Restrictions/Additional Instructions: Thank you for choosing [facility] for your healthcare needs today. Please realize this is an emergency room and that we are providing you with a medical screening exam and this may not be complete and all inclusive of all the testing and or work up that you may need to determine your ailment or severity of your illness. You have been screened and evaluated and felt safe for discharge. Health conditions do change or evolve sometimes and as such it is important that you follow up with your Primary Doctor to be re checked, 3-5 days is a general good time frame for follow up. You are always welcome to return to the ED for re assessment if your symptoms are worsening or you have new concerns Coding Level of Care Code ED Call Center Operations Manager for Chg Fwd Related Data Home Medications Medication Instructions Recorded Confirmed methadone 40 mg soluble tablet 40 mg PO .morning 06/09/23 08/16/23 methadone 10 mg tablet 25 mg PO .morning 08/16/23 08/16/23 Previous Rx's Medication Instructions Recorded cephalexin 500 mg capsule 500 mg PO BID 5 days #10 caps 11/08/23 ondansetron 8 mg disintegrating 8 mg PO Q6H #14 tabs 11/08/23 tablet promethazine 25 mg rectal 25 mg UT Q6H PRN nausea and 11/08/23 suppository vomiting #12 ea Allergies Allergy/AdvReac Type Severity Reaction Status Date / Time quetiapine [From Seroquel] Allergy Unknown Verified 11/08/23 01:43 tramadol Allergy ADR-Seizure Verified 11/08/23 01:43
--- NOTE | 2023-11-08 03:00 | PC.NURSE ---
PT FINISHING UP 1L BAG OF NS HUNG BY EMS BEFORE BEGINNING ORDERED BAG OF NS. DR CORADO MADE AWARE OF TOTAL VOLUME TO BE INFUSED.
[2023-11-08] MEDS: cefepime 2,000 MG in sodium chloride 0.9% (plus) 50 ML 100 MG IV (03:04)
[2023-11-08] MEDS: sodium chloride 0.9% 1,000 ML 999 ML IV (03:05)
[2023-11-08 03:39] LABS: Reflex Lactate Order REFLEX LACTIC ORDERD
--- NOTE | 2023-11-08 03:44 | ECG_ITS ---
[facility] Test Date: 2023-11-08 Pat Name: Barbara Poe Department: Room: Gender: Female Physiotherapy Assistant: : 1985 Requested By: Sarah Tejada Order Number: [id number] Foster MD: Adi Garcia M.D. Measurements Intervals [place] Rate: 56 P: 60 [place]: 160 QRS: 66 QRSD: 81 T: 60 QT: 441 QTc: 427 Interpretive Statements SINUS BRADYCARDIA WITH MARKED SINUS ARRHYTHMIA POSSIBLE LEFT ATRIAL ENLARGEMENT [-0.1mV P-WAVE IN V1/V2] MODERATE ST DEPRESSION [0.05+ mV ST DEPRESSION] Compared to ECG 08/01/2023 10:25:05 ST (T wave) deviation now present Sinus rhythm no longer present Electronically Signed On 11-08-2023 11:21:32 CDT by Adi Garcia M.D. [id number]
[2023-11-08 04:13] LABS: Bilirubin Urine Negative (Negative); Blood Urine 2+ (Negative); Glucose Urine UA Negative (Normal); Ketones Urine 4+ (Negative); Leukocyte Esterase Urine Negative (Negative); Nitrate Urine Negative (Negative); Protein Urine Negative (Negative); Specific Gravity, Urine 1.023 (1.005-1.030); Urine Appearance Clear (CLEAR); Urine Color Yellow (Yellow)
[2023-11-08 04:18] LABS: Bacteria Urine None Seen /hpf; Hyaline Casts Urine 1.65 /lpf; WBC Urine 0-5 /hpf (0-5)
[2023-11-08 04:20] LABS: Amphetamines Screen Urine Negative (Negative); Barbiturates Screen Urine Negative (Negative); Benzodiazepines Screen Urine Negative (Negative); Cocaine Screen Urine Negative (Negative); Opiate Screen Urine Negative (Negative); PCP Screen Urine Negative (Negative); THC Screen Urine Positive (Negative)
[2023-11-08 04:21] LABS: Add Urine Culture? No
[2023-11-08 04:32] LABS: Lactic Acid level (Lactate) 2.2 mmol/L (0.5-2.2)
== END 2023-11-08 05:34 | disposition home or self-care (01) ==
PROVIDERS: Emergency Provider Emergency Medicine; PCP Family Medicine
DX: N39.0 Urinary tract infection, site not specified (principal); E86.0 Dehydration; R11.11 Vomiting without nausea; Z79.891 Long term (current) use of opiate analgesic; F11.20 Opioid dependence, uncomplicated; R00.1 Bradycardia, unspecified; Z72.0 Tobacco use
CPT/HCPCS: 36415; 80053; 80306; 81001; 83605; 83690; 84145; 84703; 85025; 86140; 87040; 93005; 96365; 99284; J0692; J7030

== ENCOUNTER 2023-11-08 13:06 | Inpatient (IN) | payer BC, SELFPAY ==
[2023-11-08 13:06] VITALS: BP 122/74; PULSE 93; TEMP 37.2; O2SAT 99; BMI 19.1
--- NOTE | 2023-11-08 13:31 | ED.C_ITS ---
HPI - Psych 2 General: Chief Complaint: Psychiatric Symptoms Stated Complaint: auditory hallucinations Time Seen by Provider: 11/08/23 13:16 Source: patient Mode of arrival: ambulatory Limitations: no limitations History of Present Illness: Patient is a 37-year-old female presents to ED today with complaint of auditory and visual hallucinations as well as paranoia. She arrives with an affidavit reportedly filed from her father. Affidavit states she has made statements that the world would be better off with her gone. She reportedly can be a danger to herself although does not elaborate on this. Affidavit states that she has said she will harm herself. Patient states the hallucinations have been present for over a year. She states she has been evaluated at [facility] and told she could have schizoaffective bipolar. Patient is chronically on methadone due to opiate abuse in the past. She states her paranoia the other day caused her to believe there was a hostage situation outside of her apartment complex. She states she laid low on her bed to avoid any stray bullets entering her apartment. Patient was seen in the emergency department earlier today for dehydration and diagnosed with UTI as well. She states she has not filled her antibiotics for this. She also saw cardiology earlier today. Plans are for echocardiogram as she has a murmur and with her known previous IV use they wanted to rule out valvular incompetency/regurgitation. MD complaint: other (hallucinations/paranoia) Onset (ago): month(s) (worsening) Duration: getting worse History of same: Yes Relieving factors: none Exacerbating factors: none Associated psychiatric symptoms: auditory hallucinations and visual hallucinations Associated symptoms: Reports auditory hallucinations and visual hallucinations; Deny homicidal ideation or suicidal ideation Treatments prior to arrival: none Related Data Home Medications Medication Instructions Recorded Confirmed methadone 10 mg tablet 10 mg PO DAILY 11/08/23 11/08/23 methadone 40 mg soluble tablet 40 mg PO DAILY 11/08/23 11/08/23 methadone 5 mg tablet 5 mg PO DAILY 11/08/23 11/08/23 Previous Rx's Medication Instructions Recorded cephalexin 500 mg capsule 500 mg PO BID 5 days #10 caps 11/08/23 ondansetron 8 mg disintegrating 8 mg PO Q6H #14 tabs 11/08/23 tablet promethazine 25 mg rectal 25 mg MA Q6H PRN nausea and 11/08/23 suppository vomiting #12 ea Allergies Allergy/AdvReac Type Severity Reaction Status Date / Time quetiapine [From Seroquel] Allergy Unknown Verified 11/08/23 13:15 tramadol Allergy ADR-Seizure Verified 11/08/23 13:15 Review of Systems 2 Const: Denies: fever(s), chills, body aches, fatigue or malaise Card: Denies: chest pain Resp: Denies: dyspnea GI: Denies: abdominal pain : Denies: flank pain Psych: Reports: anxiety, paranoia, visual hallucinations and auditory hallucinations; Denies: suicidal ideation or homicidal ideation PFSH ED 2 PFSH: Medical History Methamphetamine abuse in remission Marijuana use, episodic Vaping nicotine dependence, tobacco product Long-term current use of methadone for opiate dependence Chronic post-traumatic stress disorder Psychiatric care Social History Smoking and tobacco/nicotine status: current every day tobacco/nicotine user Alcohol intake: current Substance/Drug Use: current Physical Exam 2 Const: COMMON NORMALS: no acute distress, patient oriented x3, no limitations, alert and well nourished GENERAL APPEARANCE: appears older than stated age HENMT: COMMON NORMALS: normocephalic and atraumatic HEAD & SCALP: normal to inspection, normocephalic and atraumatic Resp: COMMON NORMALS: normal respiratory effort Extremity: GENERAL: Yes normal exam except as noted Neuro: KENDALL COMA SCALE: document GCS findings Hamilton coma scale eye opening: Spontaneous Hamilton coma scale verbal response: Orientated Hamilton coma scale motor response: Obey commands Hamilton coma scale total score: 15 COMMON NORMALS: patient oriented x3, moves all extremities, no focal motor deficits, no sensory deficits noted and gait normal SENSORIUM/ORIENTATION: Yes alert Psych: COMMON NORMALS: mental status grossly normal, Normal thought process present, cooperative and speech normal APPEARANCE: Yes grossly normal A TTITUDE: Yes calm ACTIVITY/MOTOR BEHAVIOR: Yes appropriate eye contact S PEECH: Yes normal speech MOOD & AFFECT: Yes euthymic mood THOUGHT PROCESS: Normal thought process present ATTENTION/CONCENTRATION: Yes attention grossly intact and Yes concentration grossly intact MEMORY/COGNITION: Yes memory grossly intact and Yes cognition grossly intact INSIGHT: Fair insight present (Psych) JUDGEMENT: Fair judgement present (Psych) Course 2 Consultations: Consultation #1: Dr. Ng-will accept to NPU Vital Signs: Vital signs: Vital Signs Temperature 98.9 F 11/08/23 13:06 Pulse Rate 93 11/08/23 13:06 Blood Pressure 122/74 11/08/23 13:06 Pulse Oximetry 99 11/08/23 13:06 Oxygen Delivery Me thod Room Air 11/08/23 13:06 MDM - Psych Medical Decision Making Patient will be an admit to NPU to Dr. Ng. Will go ahead and order scheduled antibiotics for her UTI that she was diagnosed with on her visit earlier today. She is voluntary with affidavit at this time. Medical Records I reviewed the patient's medical records. Lab Data I reviewed the patient's lab results. 11/08/23 13:41 11/08/23 13:41 Laboratory Results WBC 8.32 10^3/uL (3.29-11.43) 11/08/23 13:41 RBC 4.59 10^6/uL (3.85-5.65) 11/08/23 13:41 Hgb 13.10 g/dL (11.27-16.99) 11/08/23 13:41 Hct 40.3 % (36-47) 11/08/23 13:41 MCV 87.8 fl (85-98) 11/08/23 13:41 MCH 28.5 pg (27-33) 11/08/23 13:41 MCHC 32.5 g/dL (30-55) 11/08/23 13:41 RDW 12.2 % (12.1-15.1) 11/08/23 13:41 Plt Count 322 10^3/cmm (157-399) 11/08/23 13:41 MPV 9.7 fL (7.4-10.4) 11/08/23 13:41 Neut % (Auto) 70.2 % 11/08/23 13:41 Lymph % (Auto) 22.8 % 11/08/23 13:41 Randall % (Auto) 5.3 % 11/08/23 13:41 Eos % (Auto) 0.7 % 11/08/23 13:41 Baso % (Auto) 0.8 % 11/08/23 13:41 Neut # (Auto) 5.83 10^3/uL (1.8-7.7) 11/08/23 13:41 Lymph # (Auto) 1.9 10^3/uL (0.8-4.8) 11/08/23 13:41 Randall # (Auto) 0.4 10^3/uL (0.2-0.9) 11/08/23 13:41 Eos # (Auto) 0.1 10^3/uL (0.0-0.8) 11/08/23 13:41 Baso # (Auto) 0.1 10^3/uL (0.0-0.1) 11/08/23 13:41 Nucleated RBC % (auto) 0 % 11/08/23 13:41 Nucleated RBCs # 0.0 /100WBC 11/08/23 13:41 Sodium 136 mmol/L (136-145) 11/08/23 13:41 Potassium 3.6 mmol/L (3.5-5.1) 11/08/23 13:41 Chloride 101 mmol/L (98-107) 11/08/23 13:41 Carbon Dioxide 21 mmol/L (22-29) L 11/08/23 13:41 Anion Gap 17.6 (5-19) 11/08/23 13:41 BUN 14 mg/dL (6-20) 11/08/23 13:41 Creatinine 0.6 mg/dL (0.5-0.9) 11/08/23 13:41 GFR Calculation 113.1 mL/min (90-130) 11/08/23 13:41 Glucose 176 mg/dL (65-115) H 11/08/23 13:41 Calculated Osmolality 287 mOsm/kg (285-295) 11/08/23 13:41 Calcium 9.0 mg/dL (8.5-10.5) 11/08/23 13:41 Total Bilirubin 0.5 mg/dL (0.15-1.2) 11/08/23 13:41 AST 18 U/L (0-32) 11/08/23 13:41 ALT 11 U/L (0-33) 11/08/23 13:41 Alkaline Phosphatase 77 U/L (35-105) 11/08/23 13:41 Total Protein 7.3 g/dL (6.6-8.7) 11/08/23 13:41 Albumin 4.5 g/dL (3.5-5.2) 11/08/23 13:41 Globulin 2.8 g/dL (1.3-4.6) 11/08/23 13:41 HCG, Qual Negative (Negative) 11/08/23 13:41 Salicylates < 0.3 mg/dL (3-10) L 11/08/23 13:41 Urine Opiates Screen Negative ng/mL (Negative) 11/08/23 13:49 Acetaminophen < 5.0 ug/mL (10-30) L 11/08/23 13:41 Ur Barbiturates Screen Negative ng/mL (Negative) 11/08/23 13:49 Ur Phencyclidine Scrn Negative ng/mL (Negative) 11/08/23 13:49 Ur Amphetamines Screen Negative ng/mL (Negative) 11/08/23 13:49 U Benzodiazepines Scrn Negative ng/mL (Negative) 11/08/23 13:49 Urine Cocaine Screen Negative ng/mL (Negative) 11/08/23 13:49 U Marijuana (THC) Screen Positive ng/mL (Negative) H 11/08/23 13:49 Ethyl Alcohol < 10 mg/dL (0-10) 11/08/23 13:41 No radiology studies performed this visit Discharge Plan Discharge Patient Disposition: Admitted As Inpatient Clinical Impression: Long-term current use of methadone for opiate dependence, Paranoia, Hallucinations Condition: Stable Prescriptions: No Action methadone 40 mg tablet,soluble 40 mg PO DAILY methadone 10 mg tablet 10 mg PO DAILY methadone 5 mg tablet 5 mg PO DAILY promethazine 25 mg suppository 25 mg MA Q6H PRN (Reason: nausea and vomiting) Qty: 12 0RF ondansetron 8 mg tablet,disintegrating 8 mg PO Q6H Qty: 14 0RF Rx Instructions: Take 1/2-1 tab every 6 hours as needed for nausea and vomiting cephalexin 500 mg capsule 500 mg PO BID 5 Days Qty: 10 0RF Referrals: Richard Tierney MD [Primary Care Provider] - Patient Instructions: Opioid Safety, Pain Management Coding Level of Care Code ED Forming Machine Adjuster for Keren Carrillo
[2023-11-08 13:46] LABS: Basophils # 0.1 10^3/uL (0.0-0.1); Basophils % 0.8 %; Eosinophils # 0.1 10^3/uL (0.0-0.8); Eosinophils % 0.7 %; Hematocrit 40.3 % (36-47); Lymphocytes # 1.9 10^3/uL (0.8-4.8); Lymphocytes % 22.8 %; Mean Corpuscular HGB Conc 32.5 g/dL (30-55); Mean Corpuscular Hemoglobin 28.5 pg (27-33); Mean Corpuscular Volume 87.8 fl (85-98); Mean Platelet Volume 9.7 fL (7.4-10.4); Monocytes # 0.4 10^3/uL (0.2-0.9); Monocytes % 5.3 %; Neutrophils # 5.83 10^3/uL (1.8-7.7); Neutrophils % 70.2 %; Nucleated Red Blood Cells % 0 %; Platelet Count 322 10^3/cmm (157-399); Red Blood Count 4.59 10^6/uL (3.85-5.65); Red Cell Distribution Width 12.2 % (12.1-15.1); White Blood Count 8.32 10^3/uL (3.29-11.43)
[2023-11-08 14:04] LABS: Amphetamines Screen Urine Negative (Negative); Barbiturates Screen Urine Negative (Negative); Benzodiazepines Screen Urine Negative (Negative); Cocaine Screen Urine Negative (Negative); Opiate Screen Urine Negative (Negative); PCP Screen Urine Negative (Negative); THC Screen Urine Positive (Negative)
[2023-11-08 14:07] LABS: HCG, Serum Qual Negative (Negative)
[2023-11-08 14:08] LABS: Alanine Aminotransferase 11 U/L (0-33); Albumin Level 4.5 g/dL (3.5-5.2); Alkaline Phosphatase 77 U/L (35-105); Anion Gap 17.6 (5-19); Aspartate Amino Transferase 18 U/L (0-32); Blood Urea Nitrogen 14 mg/dL (6-20); Carbon Dioxide 21 mmol/L (22-29); Chloride 101 mmol/L (98-107); Creatinine Clr Calc Pharmacy 112.6797; Globulin 2.8 g/dL (1.3-4.6); Glomerular Filtration Rate 113.1 mL/min (90-130); Glucose 176 mg/dL (65-115); Osmolality Calculated 287 mOsm/kg (285-295); Potassium 3.6 mmol/L (3.5-5.1); Sodium 136 mmol/L (136-145); Total Bilirubin 0.5 mg/dL (0.15-1.2); Total Protein 7.3 g/dL (6.6-8.7)
[2023-11-08 14:13] LABS: Acetaminophen < 5.0 ug/mL (10-30); Alcohol Level < 10 mg/dL (0-10); Salicylate < 0.3 mg/dL (3-10)
--- NOTE | 2023-11-08 14:14 | PC.NURSE ---
pt changed into green paper scrubs, belongings removed and placed in bag, urine collected.
[2023-11-08] MEDS: cephALEXin 500 mg Capsule PO ×2 (14:58→20:55)
[2023-11-08 14:59] VITALS: BP 116/62; PULSE 68; RESP 16; TEMP 36.7; O2SAT 100
--- NOTE | 2023-11-08 17:13 | PC.ADMIT ---
[facility] [address] Admission Note: The patient,Barbara Poe,37 y/o, was given written information regarding hospital policies, unit procedures and contact persons. Patient's smoking status: current every day smoker. 5 CIGS A DAY Vital Signs - 8 hr 11/08/23 13:06 11/08/23 14:59 11/08/23 17:01 Temperature 98.9 F 98.1 F Pulse Rate 93 68 Respiratory Rate 16 Blood Pressure 122/74 116/62 Pulse Oximetry 99 100 Oxygen Delivery Method Room Air Room Air Room Air ADMITTED FROM [facility] ER AT 1600 WITH ER STAFF VIA WHEELCHAIR. PTS FATHER WROTE OUT AN AFFIDAVIT VOICING CONCERNS THAT PT IS PARANOID, HIDING FROM PEOPLE DUE TO A HOSTAGE SITUATION. PT STATES SHE IS HERE DUE TO HAVING PARANOIA FREQUENTLY, HEARING VOICES AND SEEING OBJECTS FLY AROUND THE ROOM. PT STATES IF I LAY FLAT IN BED SO NO ONE CAN SEE ME THEN I'M USUALLY OKAY. PT STATES SHE WOULD LIKE TO GET ON A STIMULANT FOR MY ADHD. PT REPORTS A LONG HISTORY OF SUBSTANCE ABUSE STATING SHE USES THC DAILY AND IS ON 65 MG OF METHADONE WITH BHG, PT STATES SHE TAKES NO OTHER MEDICATIONS BUT USE TO TAKE VRAYLAR BUT HAD TO QUIT DUE TO THE COST. PT STATES SHE USED A VARIETY OF DRUGS, INCLUDING HEROIN, METHAMPHETAMINE, HALLUCINOGENS AND USE AIR DUSTER A MONTH AGO BUT I ONLY USED TWO CANS, IT MADE MY VOICES WORSE. DR. AMBROSIO AWARE OF PT ARRIVAL AND ORDERS RECEIVED. SKIN ASSESSMENT REVEALS NEEDLE STICK TO LEFT AC AND RAZOR CUT FROM SHAVING ON LEFT BACK OF HEEL. PT IS NOTED TO HAVE ANIMATED SPEECH THAT IS RAPID AND EXCESSIVE. PT STATES SHE HAD A SUICIDE ATTEMPT IN 12TH GRADE AND SLIT MY WRIST. PT STATES IT WAS FOR ATTENTION MORE THAN ANYTHING. PT STATES SHE HAS NO SUPPORT SYSTEM IN PLACE AND IS UNSURE IF SHE WILL BE ABLE TO GO BACK TO HER FATHERS HOUSE. PT WAS ORIENTATED TO UNIT, RULES AND SAFETY GUIDELINES. ALL EDUCATION RECEIVED IN ADMISSION PACKET. ALL QUESTIONS ANSWERED AND SUPPORT VOICED. PT DENIES PAIN.. DENIES SI/HI BUT DOES CONTINUE TO ENDORSES HEARING VOICES AND SEEING ORBS OF LIGHT AND DARKNESS.
[2023-11-08 19:39] VITALS: BP 105/67; PULSE 98; RESP 18; TEMP 36.7; O2SAT 99
[2023-11-08] MEDS: hyDROXYzine 25 mg Capsule 50 MG PO (20:55)
[2023-11-08] MEDS: OLANZapine 5 mg ODT PO (20:55)
[2023-11-09 06:00] VITALS: BP 116/63; PULSE 54; RESP 16; TEMP 37; O2SAT 99
[2023-11-09] MEDS: methadone 10 mg Tablet 65 MG PO (09:14)
[2023-11-09] MEDS: cephALEXin 500 mg Capsule PO ×2 (09:14→20:44)
--- NOTE | 2023-11-09 10:08 | PC.NURSE ---
IN BED RESTING, AROUSES TO VOICE. [facility] WAS CALLED AND THEY STATE PT RECEIVED 6 DAYS OF METHADONE. WHEN THIS RN ASKED PT IF SHE STILL HAS THE 6 DAYS LEFT PT STATED NO I GAVE ONE TO MY DAD AND THEN TOOK EXTRA SO I SHOULD HAVE 4 DAYS LEFT. PT DENIES PAIN. DENIES SI/HI AND AVH AT THIS TIME. STATES SHE SLEPT WELL LAST NIGHT. SUPPORT VOICED.
--- NOTE | 2023-11-09 10:22 | PC.NURSE ---
THIS NURSE CONTACTED [facility] TO CONFIRM PT METHADONE PRESCRIPTION. PT DOSAGE WAS CONFIRMED TO BE 65MG DAILY. PT WAS REPORTED TO HAVE RECENTLY RECEIVED A WEEKS WORHT OF MEDICATION AND ONLY REPORTS HAVING 4 DOSES LEFT. PT DOES NOT HAVE MEDICATION WITH HER. PT REPORTED TO OTHER NURSE THAT SHE HAS ALSO BEEN GIVING HER METHADONE TO HER FATHER SO SHE KNOW SHE IS GOING TO BE SHORT.
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
[2023-11-09 13:40] VITALS: BP 117/75; PULSE 61; RESP 16; TEMP 36.6; O2SAT 100
[2023-11-09 20:12] VITALS: BP 105/70; PULSE 85; RESP 16; TEMP 36.9; O2SAT 94
[2023-11-09] MEDS: nicotine 2 mg Gum BUCCAL (20:19)
[2023-11-09] MEDS: hyDROXYzine 25 mg Capsule 50 MG PO (20:44)
[2023-11-10 06:00] VITALS: BP 109/60; PULSE 73; RESP 17; TEMP 36.7; O2SAT 91
[2023-11-10] MEDS: methadone 10 mg Tablet 65 MG PO (08:47)
[2023-11-10] MEDS: cephALEXin 500 mg Capsule PO ×2 (08:50→20:24)
--- NOTE | 2023-11-10 08:55 | PC.NURSE ---
IN ROOM, PT REPORTS SHE HAS NOT BEEN ABLE TO GET TO SLEEP. CONTINUES TO DENY SI/HI AND AVH AT THIS TIME. DENIES PAIN. RATES ANXIETY 3/10 AND DEPRESSION 4/10. PT IS NOTED TO HAVE RAPID, FAST AND EXCESSIVE SPEECH. SUPPORT VOICED.
--- NOTE | 2023-11-10 09:55 | P.NPUPN_ITS ---
Subjective NPU 2 Subjective: Patient presented today reporting that she is doing okay. She says she did not sleep that well but otherwise she was doing okay. We once again discussed the risks, benefits and alternatives of starting Invega 3 mg p.o. daily and she understood and agreed to proceed as is documented in this note. We discussed taking things a day at a time as far as follow-ups, discharge etc. Mental Status Exam 2 MSE Comments: This is a underweight white female in hospital scrubs with adequate grooming and eye contact. Some tattooing on exposed skin. No abnormal movements except for mild psychomotor agitation. Cooperative with exam in mild distress. Speech was slightly increased rate and normal volume. Mood described as okay, affect congruent. Thought process organized, thought content: patient denies suicidal or homicidal ideation, there were no delusions reported but paranoia and possibly persecutory thinking noted, she denied any auditory or visual hallucinations but did endorse seeing things that she felt had greater meaning and also feeling that when she looked at her daughter's vaginal area it was larger than it should be which was not noted by other family members. The patient reported auditory hallucinations and expressed concerns that may suggest paranoia, such as believing her ex-boyfriend from [place] was in the building next to where she lives. She also reported difficulties with attention and information retention. Attention and concentration were intact and memory appeared unreliable but none were formally tested. She?s alert and oriented times three. Insight and judgment appeared limited and impulse control appeared limited. Vitals/I&O/Wt Last Vital Signs Temp 98.1 F 11/10/23 06:00 Pulse 73 11/10/23 06:00 Resp 17 11/10/23 06:00 BP 109/60 11/10/23 06:00 Pulse Ox 91 11/10/23 06:00 O2 Del Method Room Air 11/08/23 17:01 Weight last 48 hrs Weight 52.163 kg Data NPU 11/08/23 13:41 11/08/23 13:41 A&P Assessment and plan (1) Depression with suicidal ideation: (2) PTSD (post-traumatic stress disorder): (3) Opioid use disorder, severe, in early remission: (4) Methamphetamine use disorder, severe: (5) Suicidal ideation: (6) Depression: (7) Acute psychosis: (8) Hallucinations: (9) Paranoia: (10) Long-term current use of methadone for opiate dependence: (11) Methamphetamine abuse in remission: (12) Chronic post-traumatic stress disorder: (13) Marijuana use, episodic: Plan This is a 37-year-old white female with a long history of addiction, trauma and depression with significant inpatient and outpatient services in her life with recent treatment through [facility] in the community who presents off of medication reporting suicidal ideation and psychosis. The patient is experiencing ongoing auditory hallucinations and potential paranoia. She has a history of substance use and is currently on methadone. She has been off psychiatric medication for about a year but is open to considering medication again. She is currently experiencing significant stress and emotional distress, possibly related to her mental health symptoms and her living situation. 1. Identify appropriateness for medication being restarted. Initiate Invega 3 mg p.o. daily. 2. Continue every 15 minute checks for safety. 3. Encourage individual, group and milieu therapies. 4. Encourage sober living treatment after discharge at the highest level of care to which she is willing to commit. 5. We will collaborate with social work team to assist in finding safe discharge options. Involuntary Hold Information 2 96 Hour Hold: 96 Hour Involuntary Admission: No Attestations NPU 2 Medical Necessity Statement*: Inpatient hospitalization is medically necessary and the clinically appropriate intervention at this time. We will monitor medication to make changes as indicated.Likely length of stay 4-6 days. Coding Level of Care Code Acute Code for [facility] Diagnoses Depression with suicidal ideation F32.A; R45.851 PTSD (post-traumatic stress disorder) F43.10 Opioid use disorder, severe, in early remission F11.21 Methamphetamine use disorder, severe F15.20 Suicidal ideation R45.851 Depression F32.A Acute psychosis F23 Hallucinations R44.3 Paranoia F22 Long-term current use of methadone for opiate dependence F11.20 Methamphetamine abuse in remission F15.11 Chronic post-traumatic stress disorder F43.12 Marijuana use, episodic F12.90
[2023-11-10] MEDS: paliperidone ER 3 mg Tablet PO (11:20)
[2023-11-10 14:00] VITALS: BP 123/65; PULSE 83; RESP 16; TEMP 36.6; O2SAT 96
--- NOTE | 2023-11-10 18:30 | PC.NURSE ---
Patient's room searched for contraband by staff; no contraband uncovered. Patient cooperative with search
[2023-11-10 21:22] VITALS: BP 114/67; PULSE 75; RESP 18; TEMP 36.8; O2SAT 94
[2023-11-11 06:00] VITALS: BP 121/71; PULSE 79; RESP 16; TEMP 36.6; O2SAT 96
[2023-11-11 08:05] VITALS: RESP 18
[2023-11-11] MEDS: methadone 10 mg Tablet 65 MG PO (08:05)
[2023-11-11] MEDS: paliperidone ER 3 mg Tablet PO ×2 (08:05→20:09)
[2023-11-11] MEDS: cephALEXin 500 mg Capsule PO ×2 (08:07→20:09)
[2023-11-11] MEDS: OLANZapine 5 mg ODT PO ×2 (09:14→21:01)
[2023-11-11 13:36] VITALS: BP 121/72; PULSE 73; RESP 16; TEMP 36.7; O2SAT 100
--- NOTE | 2023-11-11 17:22 | P.NPUPN_ITS ---
Subjective NPU 2 Subjective: Patient presented today reporting that she was struggling a bit today. She reports that she is in hearing voices that have been really challenging. She identified that the Invega had not seem to decrease that experience at 3 mg and we discussed the risks, benefits and alternatives of increasing her Invega to 6 mg p.o. daily and she understood and agreed to proceed as is documented in this note. She denied any side effects to the medication. Mental Status Exam 2 MSE Comments: This is a underweight white female in hospital scrubs with adequate grooming and eye contact. Some tattooing on exposed skin. No abnormal movements except for mild psychomotor agitation. Cooperative with exam in mild distress. Speech was slightly increased rate and normal volume. Mood described as okay, affect congruent. Thought process organized, thought content: patient denies suicidal or homicidal ideation, there were no delusions reported but paranoia and possibly persecutory thinking noted, she endorsed hearing voices but denied any visual hallucinations but did endorse seeing things that she felt had greater meaning and also feeling that when she looked at her daughter's vaginal area it was larger than it should be which was not noted by other family members. The patient reported auditory hallucinations and expressed concerns that may suggest paranoia, such as believing her ex-boyfriend from [place] was in the building next to where she lives. She also reported difficulties with attention and information retention. Attention and concentration were intact and memory appeared unreliable but none were formally tested. She?s alert and oriented times three. Insight and judgment appeared limited and impulse control appeared limited. Vitals/I&O/Wt Last Vital Signs Temp 98.1 F 11/11/23 13:36 Pulse 73 11/11/23 13:36 Resp 16 11/11/23 13:36 BP 121/72 11/11/23 13:36 Pulse Ox 100 11/11/23 13:36 O2 Del Method Room Air 11/11/23 13:36 Weight last 48 hrs Weight 54.148 kg Data NPU 11/08/23 13:41 11/08/23 13:41 A&P Assessment and plan (1) Depression with suicidal ideation: (2) PTSD (post-traumatic stress disorder): (3) Opioid use disorder, severe, in early remission: (4) Methamphetamine use disorder, severe: (5) Suicidal ideation: (6) Depression: (7) Acute psychosis: (8) Hallucinations: (9) Paranoia: (10) Long-term current use of methadone for opiate dependence: (11) Methamphetamine abuse in remission: (12) Chronic post-traumatic stress disorder: (13) Marijuana use, episodic: Plan This is a 37-year-old white female with a long history of addiction, trauma and depression with significant inpatient and outpatient services in her life with recent treatment through [facility] in the community who presents off of medication reporting suicidal ideation and psychosis. The patient is experiencing ongoing auditory hallucinations and potential paranoia. She has a history of substance use and is currently on methadone. She has been off psychiatric medication for about a year but is open to considering medication again. She is currently experiencing significant stress and emotional distress, possibly related to her mental health symptoms and her living situation. 1. Identify appropriateness for medication being restarted. Initiated Invega 3 mg p.o. daily. Increased at the 6 mg. 2. Continue every 15 minute checks for safety. 3. Encourage individual, group and milieu therapies. 4. Encourage sober living treatment after discharge at the highest level of care to which she is willing to commit. 5. We will collaborate with social work team to assist in finding safe discharge options. Involuntary Hold Information 2 96 Hour Hold: 96 Hour Involuntary Admission: No Attestations NPU 2 Medical Necessity Statement*: Inpatient hospitalization is medically necessary and the clinically appropriate intervention at this time. We will monitor medication to make changes as indicated.Likely length of stay 4-6 days. Coding Level of Care Code Acute Code for [facility] Diagnoses Depression with suicidal ideation F32.A; R45.851 PTSD (post-traumatic stress disorder) F43.10 Opioid use disorder, severe, in early remission F11.21 Methamphetamine use disorder, severe F15.20 Suicidal ideation R45.851 Depression F32.A Acute psychosis F23 Hallucinations R44.3 Paranoia F22 Long-term current use of methadone for opiate dependence F11.20 Methamphetamine abuse in remission F15.11 Chronic post-traumatic stress disorder F43.12 Marijuana use, episodic F12.90
[2023-11-11] MEDS: nicotine 2 mg Gum BUCCAL (19:12)
[2023-11-11] MEDS: docusate sodium 100 mg Capsule PO (20:09)
[2023-11-11 20:41] VITALS: BP 129/69; PULSE 83; RESP 18; TEMP 36.7; O2SAT 96
[2023-11-12 06:00] VITALS: BP 110/74; PULSE 75; RESP 16; TEMP 36.7; O2SAT 98
[2023-11-12 09:00] VITALS: RESP 14; O2SAT 98
[2023-11-12] MEDS: methadone 10 mg Tablet 65 MG PO (09:00)
[2023-11-12] MEDS: cephALEXin 500 mg Capsule PO ×2 (09:02→20:23)
[2023-11-12] MEDS: paliperidone ER 6 mg Tablet PO (09:02)
[2023-11-12] MEDS: nicotine 4 mg lozenge MUCOUS MEM ×2 (10:44→19:15)
[2023-11-12 13:04] VITALS: BP 111/69; PULSE 82; RESP 16; TEMP 36.6; O2SAT 99
--- NOTE | 2023-11-12 13:50 | P.NPUPN_ITS ---
Subjective NPU 2 Subjective: Patient presented today reporting that she is feeling okay. She reports that the voices seem to be more prevalent. We did discuss that she has been on Abilify before and that seemed to work but she had initially seemed hesitant to restart it but now she is reporting an openness to consider resuming the Abilify if the trial of Invega is ineffective in helping her with her auditory hallucinations. She denies any side effects to the medication. Mental Status Exam 2 MSE Comments: This is a underweight white female in hospital scrubs with adequate grooming and eye contact. Some tattooing on exposed skin. No abnormal movements except for mild psychomotor agitation. Cooperative with exam in mild distress. Speech was slightly increased rate and normal volume. Mood described as okay, affect congruent. Thought process organized, thought content: patient denies suicidal or homicidal ideation, there were no delusions reported but paranoia and possibly persecutory thinking noted, she endorsed hearing voices but denied any visual hallucinations but did endorse seeing things that she felt had greater meaning and also feeling that when she looked at her daughter's vaginal area it was larger than it should be which was not noted by other family members. The patient reported auditory hallucinations and expressed concerns that may suggest paranoia, such as believing her ex-boyfriend from [place] was in the building next to where she lives. She also reported difficulties with attention and information retention. Attention and concentration were intact and memory appeared unreliable but none were formally tested. She?s alert and oriented times three. Insight and judgment appeared limited and impulse control appeared limited. Vitals/I&O/Wt Last Vital Signs Temp 97.9 F 11/12/23 13:04 Pulse 82 11/12/23 13:04 Resp 16 11/12/23 13:04 BP 111/69 11/12/23 13:04 Pulse Ox 99 11/12/23 13:04 O2 Del Method Room Air 11/12/23 13:04 Weight last 48 hrs Weight 54.148 kg Data NPU 11/08/23 13:41 11/08/23 13:41 A&P Assessment and plan (1) Depression with suicidal ideation: (2) PTSD (post-traumatic stress disorder): (3) Opioid use disorder, severe, in early remission: (4) Methamphetamine use disorder, severe: (5) Suicidal ideation: (6) Depression: (7) Acute psychosis: (8) Hallucinations: (9) Paranoia: (10) Long-term current use of methadone for opiate dependence: (11) Methamphetamine abuse in remission: (12) Chronic post-traumatic stress disorder: (13) Marijuana use, episodic: Plan This is a 37-year-old white female with a long history of addiction, trauma and depression with significant inpatient and outpatient services in her life with recent treatment through [facility] in the community who presents off of medication reporting suicidal ideation and psychosis. The patient is experiencing ongoing auditory hallucinations and potential paranoia. She has a history of substance use and is currently on methadone. She has been off psychiatric medication for about a year but is open to considering medication again. She is currently experiencing significant stress and emotional distress, possibly related to her mental health symptoms and her living situation. 1. Identify appropriateness for medication being restarted. Initiated Invega 3 mg p.o. daily. Increased at the 6 mg. Consider increasing to 9 mg versus switching back to Abilify which she reports may have helped. 2. Continue every 15 minute checks for safety. 3. Encourage individual, group and milieu therapies. 4. Encourage sober living treatment after discharge at the highest level of care to which she is willing to commit. 5. We will collaborate with social work team to assist in finding safe discharge options. Involuntary Hold Information 2 96 Hour Hold: 96 Hour Involuntary Admission: No Attestations NPU 2 Medical Necessity Statement*: Inpatient hospitalization is medically necessary and the clinically appropriate intervention at this time. We will monitor medication to make changes as indicated.Likely length of stay 3-5 days. Coding Level of Care Code Acute Code for [facility] Diagnoses Depression with suicidal ideation F32.A; R45.851 PTSD (post-traumatic stress disorder) F43.10 Opioid use disorder, severe, in early remission F11.21 Methamphetamine use disorder, severe F15.20 Suicidal ideation R45.851 Depression F32.A Acute psychosis F23 Hallucinations R44.3 Paranoia F22 Long-term current use of methadone for opiate dependence F11.20 Methamphetamine abuse in remission F15.11 Chronic post-traumatic stress disorder F43.12 Marijuana use, episodic F12.90
[2023-11-12] MEDS: docusate sodium 100 mg Capsule PO (20:23)
[2023-11-12 20:32] VITALS: BP 117/65; PULSE 100; RESP 17; TEMP 37.3; O2SAT 98
[2023-11-13 06:00] VITALS: BP 99/71; PULSE 83; RESP 16; TEMP 36.9; O2SAT 98
[2023-11-13] MEDS: methadone 10 mg Tablet 65 MG PO (08:10)
[2023-11-13] MEDS: paliperidone ER 6 mg Tablet PO (08:10)
[2023-11-13] MEDS: nicotine 4 mg lozenge MUCOUS MEM ×2 (08:12→13:35)
[2023-11-13 14:00] VITALS: BP 124/74; PULSE 88; RESP 16; TEMP 36.9; O2SAT 98
[2023-11-13 19:12] VITALS: BP 116/73; PULSE 92; RESP 18; TEMP 36.7; O2SAT 99
[2023-11-13] MEDS: docusate sodium 100 mg Capsule PO (20:14)
--- NOTE | 2023-11-13 20:41 | W.PM.NPUPNS ---
Subjective NPU Subjective: Patient presented today reporting that she is trying to decide whether we should stay the course with the Invega or switch over to Abilify. She is working with the social work team on the logistics of discharge and communications with dad have improved. We discussed taking it a day at a time to see how she does on the Invega. She denied any side effects to the medication but has had concerns that the voices were still so present. Mental Status Exam MSE Comments: This is a underweight white female in hospital scrubs with adequate grooming and eye contact. Some tattooing on exposed skin. No abnormal movements except for mild psychomotor agitation. Cooperative with exam in mild distress. Speech was slightly increased rate and normal volume. Mood described as okay, affect congruent. Thought process organized, thought content: patient denies suicidal or homicidal ideation, there were no delusions reported but paranoia and possibly persecutory thinking noted, she endorsed hearing voices but denied any visual hallucinations but did endorse seeing things that she felt had greater meaning and also feeling that when she looked at her daughter's vaginal area it was larger than it should be which was not noted by other family members. The patient reported auditory hallucinations and expressed concerns that may suggest paranoia, such as believing her ex-boyfriend from [place] was in the building next to where she lives. She also reported difficulties with attention and information retention. Attention and concentration were intact and memory appeared unreliable but none were formally tested. She?s alert and oriented times three. Insight and judgment appeared limited and impulse control appeared limited. Vitals/I&O/Wt Last Vital Signs Temp 98.1 F 11/13/23 19:12 Pulse 92 11/13/23 19:12 Resp 18 11/13/23 19:12 BP 116/73 11/13/23 19:12 Pulse Ox 99 11/13/23 19:12 O2 Del Method Room Air 11/13/23 19:12 Weight last 48 hrs Weight 54.148 kg Data NPU 11/08/23 13:41 11/08/23 13:41 A&P Assessment and plan (1) Depression with suicidal ideation: (2) PTSD (post-traumatic stress disorder): (3) Opioid use disorder, severe, in early remission: (4) Methamphetamine use disorder, severe: (5) Suicidal ideation: (6) Depression: (7) Acute psychosis: (8) Hallucinations: (9) Paranoia: (10) Long-term current use of methadone for opiate dependence: (11) Methamphetamine abuse in remission: (12) Chronic post-traumatic stress disorder: (13) Marijuana use, episodic: Plan This is a 37-year-old white female with a long history of addiction, trauma and depression with significant inpatient and outpatient services in her life with recent treatment through [facility] in the community who presents off of medication reporting suicidal ideation and psychosis. The patient is experiencing ongoing auditory hallucinations and potential paranoia. She has a history of substance use and is currently on methadone. She has been off psychiatric medication for about a year but is open to considering medication again. She is currently experiencing significant stress and emotional distress, possibly related to her mental health symptoms and her living situation. 1. Identify appropriateness for medication being restarted. Initiated Invega 3 mg p.o. daily. Increased at the 6 mg. Consider increasing to 9 mg versus switching back to Abilify which she reports may have helped. 2. Continue every 15 minute checks for safety. 3. Encourage individual, group and milieu therapies. 4. Encourage sober living treatment after discharge at the highest level of care to which she is willing to commit. 5. We will collaborate with social work team to assist in finding safe discharge options. Involuntary Hold Information 96 Hour Hold: 96 Hour Involuntary Admission: No Attestations U Medical Necessity Statement*: Inpatient hospitalization is medically necessary and the clinically appropriate intervention at this time. We will monitor medication to make changes as indicated.Likely length of stay 3-5 days. Coding Level of Care Code Acute Code for [facility] Diagnoses Depression with suicidal ideation F32.A; R45.851 PTSD (post-traumatic stress disorder) F43.10 Opioid use disorder, severe, in early remission F11.21 Methamphetamine use disorder, severe F15.20 Suicidal ideation R45.851 Depression F32.A Acute psychosis F23 Hallucinations R44.3 Paranoia F22 Long-term current use of methadone for opiate dependence F11.20 Methamphetamine abuse in remission F15.11 Chronic post-traumatic stress disorder F43.12 Marijuana use, episodic F12.90
[2023-11-14 06:00] VITALS: BP 116/74; PULSE 66; RESP 18; TEMP 36.8; O2SAT 99
[2023-11-14 08:20] VITALS: RESP 17
[2023-11-14] MEDS: methadone 10 mg Tablet 65 MG PO (08:20)
[2023-11-14] MEDS: paliperidone ER 6 mg Tablet PO (08:22)
[2023-11-14] MEDS: docusate sodium 100 mg Capsule PO (08:25)
--- NOTE | 2023-11-14 08:26 | PC.NURSE ---
Educated and encouraged pt to walk the halls to promote bowel movements.
[2023-11-14] MEDS: nicotine 4 mg lozenge MUCOUS MEM ×2 (09:52→16:08)
[2023-11-14 14:00] VITALS: BP 106/72; PULSE 102; RESP 17; TEMP 36.7; O2SAT 98
[2023-11-14 19:09] VITALS: BP 114/71; PULSE 76; RESP 16; TEMP 36.7; O2SAT 99
--- NOTE | 2023-11-14 21:44 | P.NPUPN_ITS ---
Subjective NPU 2 Subjective: Patient presented today reporting that he is doing a little better. She reports that the Invega is starting to help and she is feeling that she is currently less auditory hallucinations. She will continue on the medication and we discontinued discussions about possibly taking back to Abilify as she is starting to see improvement from the Invega. She denied any side effects to the medication. Mental Status Exam 2 MSE Comments: This is a underweight white female in hospital scrubs with adequate grooming and eye contact. Some tattooing on exposed skin. No abnormal movements except for mild psychomotor agitation. Cooperative with exam in mild distress. Speech was slightly increased rate and normal volume. Mood described as okay, affect congruent. Thought process organized, thought content: patient denies suicidal or homicidal ideation, there were no delusions reported but paranoia and possibly persecutory thinking noted, she endorsed hearing voices but denied any visual hallucinations but did endorse seeing things that she felt had greater meaning and also feeling that when she looked at her daughter's vaginal area it was larger than it should be which was not noted by other family members. The patient reported auditory hallucinations and expressed concerns that may suggest paranoia, such as believing her ex-boyfriend from [place] was in the building next to where she lives. She also reported difficulties with attention and information retention. Attention and concentration were intact and memory appeared unreliable but none were formally tested. She?s alert and oriented times three. Insight and judgment appeared limited and impulse control appeared limited. Vitals/I&O/Wt Last Vital Signs Temp 98.1 F 11/14/23 19:09 Pulse 76 11/14/23 19:09 Resp 16 11/14/23 19:09 BP 114/71 11/14/23 19:09 Pulse Ox 99 11/14/23 19:09 O2 Del Method Room Air 11/14/23 19:09 Data NPU 11/08/23 13:41 11/08/23 13:41 A&P Assessment and plan (1) Depression with suicidal ideation: (2) PTSD (post-traumatic stress disorder): (3) Opioid use disorder, severe, in early remission: (4) Methamphetamine use disorder, severe: (5) Suicidal ideation: (6) Depression: (7) Acute psychosis: (8) Hallucinations: (9) Paranoia: (10) Long-term current use of methadone for opiate dependence: (11) Methamphetamine abuse in remission: (12) Chronic post-traumatic stress disorder: (13) Marijuana use, episodic: Plan This is a 37-year-old white female with a long history of addiction, trauma and depression with significant inpatient and outpatient services in her life with recent treatment through [facility] in the community who presents off of medication reporting suicidal ideation and psychosis. The patient is experiencing ongoing auditory hallucinations and potential paranoia. She has a history of substance use and is currently on methadone. She has been off psychiatric medication for about a year but is open to considering medication again. She is currently experiencing significant stress and emotional distress, possibly related to her mental health symptoms and her living situation. 1. Identify appropriateness for medication being restarted. Initiated Invega 3 mg p.o. daily. Increased at the 6 mg. Consider increasing to 9 mg, as patient not reporting some efficacy from the Invega.. 2. Continue every 15 minute checks for safety. 3. Encourage individual, group and milieu therapies. 4. Encourage sober living treatment after discharge at the highest level of care to which she is willing to commit. 5. We will collaborate with social work team to assist in finding safe discharge options. Involuntary Hold Information 2 96 Hour Hold: 96 Hour Involuntary Admission: No Attestations NPU 2 Medical Necessity Statement*: Inpatient hospitalization is medically necessary and the clinically appropriate intervention at this time. We will monitor medication to make changes as indicated.Likely length of stay 3-5 days. Coding Level of Care Code Acute Code for [facility] Diagnoses Depression with suicidal ideation F32.A; R45.851 PTSD (post-traumatic stress disorder) F43.10 Opioid use disorder, severe, in early remission F11.21 Methamphetamine use disorder, severe F15.20 Suicidal ideation R45.851 Depression F32.A Acute psychosis F23 Hallucinations R44.3 Paranoia F22 Long-term current use of methadone for opiate dependence F11.20 Methamphetamine abuse in remission F15.11 Chronic post-traumatic stress disorder F43.12 Marijuana use, episodic F12.90
[2023-11-15 06:00] VITALS: BP 117/81; PULSE 124; RESP 18; TEMP 36.9; O2SAT 98
[2023-11-15 08:26] VITALS: RESP 17; O2SAT 98
[2023-11-15] MEDS: methadone 10 mg Tablet 65 MG PO (08:26)
[2023-11-15] MEDS: paliperidone ER 6 mg Tablet PO (08:27)
[2023-11-15] MEDS: nicotine 4 mg lozenge MUCOUS MEM (08:27)
[2023-11-15 13:45] VITALS: BP 118/67; PULSE 92; RESP 16; TEMP 36.6; O2SAT 99
[2023-11-15] MEDS: nicotine 21 mg Patch 1 PATCH TRANSDERMA (13:50)
--- NOTE | 2023-11-15 16:17 | P.NPUPN_ITS ---
Subjective NPU 2 Subjective: Patient presented today reporting that she feels the Invega is working well. She reports a reduction in her extra sensory perceptions, hearing voices and other strange feelings. She reports that she has spoken with her father and she is going to be able to go home. She reports that she is feeling well enough that she is hopeful if she discharges probably tomorrow and we discussed the likelihood of discharge in the next 48 hours. She denied any side effects of the medication. Mental Status Exam 2 MSE Comments: This is a underweight white female in hospital scrubs with adequate grooming and eye contact. Some tattooing on exposed skin. No abnormal movements except for mild psychomotor agitation. Cooperative with exam in mild distress. Speech was slightly increased rate and normal volume. Mood described as okay, affect congruent. Thought process organized, thought content: patient denies suicidal or homicidal ideation, there were no delusions reported but paranoia and possibly persecutory thinking noted, she endorsed hearing voices but denied any visual hallucinations. Attention and concentration were intact and memory appeared unreliable but none were formally tested. She?s alert and oriented times three. Insight and judgment appeared limited and impulse control appeared limited. Vitals/I&O/Wt Last Vital Signs Temp 97.9 F 11/15/23 13:45 Pulse 92 11/15/23 13:45 Resp 16 11/15/23 13:45 BP 118/67 11/15/23 13:45 Pulse Ox 99 11/15/23 13:45 O2 Del Method Room Air 11/15/23 13:45 Data NPU 11/08/23 13:41 11/08/23 13:41 A&P Assessment and plan (1) Depression with suicidal ideation: (2) PTSD (post-traumatic stress disorder): (3) Opioid use disorder, severe, in early remission: (4) Methamphetamine use disorder, severe: (5) Suicidal ideation: (6) Depression: (7) Acute psychosis: (8) Hallucinations: (9) Paranoia: (10) Long-term current use of methadone for opiate dependence: (11) Methamphetamine abuse in remission: (12) Chronic post-traumatic stress disorder: (13) Marijuana use, episodic: Plan This is a 37-year-old white female with a long history of addiction, trauma and depression with significant inpatient and outpatient services in her life with recent treatment through [facility] in the community who presents off of medication reporting suicidal ideation and psychosis. The patient is experiencing ongoing auditory hallucinations and potential paranoia. She has a history of substance use and is currently on methadone. She has been off psychiatric medication for about a year but is open to considering medication again. She is currently experiencing significant stress and emotional distress, possibly related to her mental health symptoms and her living situation. 1. Identify appropriateness for medication being restarted. Initiated Invega 3 mg p.o. daily. Increased at the 6 mg. Consider increasing to 9 mg, as patient not reporting some efficacy from the Invega.. 2. Continue every 15 minute checks for safety. 3. Encourage individual, group and milieu therapies. 4. Encourage sober living treatment after discharge at the highest level of care to which she is willing to commit. 5. We will collaborate with social work team to assist in finding safe discharge options. Involuntary Hold Information 2 96 Hour Hold: 96 Hour Involuntary Admission: No Attestations NPU 2 Medical Necessity Statement*: Inpatient hospitalization is medically necessary and the clinically appropriate intervention at this time. We will monitor medication to make changes as indicated.Likely length of stay 1-3 days. Coding Level of Care Code Acute Code for [facility] Fwd Diagnoses Depression with suicidal ideation F32.A; R45.851 PTSD (post-traumatic stress disorder) F43.10 Opioid use disorder, severe, in early remission F11.21 Methamphetamine use disorder, severe F15.20 Suicidal ideation R45.851 Depression F32.A Acute psychosis F23 Hallucinations R44.3 Paranoia F22 Long-term current use of methadone for opiate dependence F11.20 Methamphetamine abuse in remission F15.11 Chronic post-traumatic stress disorder F43.12 Marijuana use, episodic F12.90
[2023-11-15] MEDS: OLANZapine 5 mg ODT PO (19:36)
[2023-11-15] MEDS: docusate sodium 100 mg Capsule PO (19:36)
[2023-11-15 20:20] VITALS: BP 127/84; PULSE 87; RESP 16; TEMP 37.1; O2SAT 100
[2023-11-16 06:00] VITALS: BP 109/68; PULSE 95; RESP 17; TEMP 36.9; O2SAT 99
[2023-11-16] MEDS: methadone 10 mg Tablet 65 MG PO (08:06)
[2023-11-16] MEDS: paliperidone ER 6 mg Tablet PO (08:08)
[2023-11-16] MEDS: nicotine 21 mg Patch 1 PATCH TRANSDERMA (08:10)
[2023-11-16 13:48] VITALS: BP 119/76; PULSE 111; RESP 16; TEMP 36.9; O2SAT 100
--- NOTE | 2023-11-16 15:54 | W.PM.NPUDCS ---
Diagnoses at Discharge Discharge Diagnosis (1) Depression with suicidal ideation: Status: Resolved (2) PTSD (post-traumatic stress disorder): Status: Ruled-out (3) Opioid use disorder, severe, in early remission: Status: Resolved (4) Methamphetamine use disorder, severe: Status: Resolved (5) Suicidal ideation: Status: Resolved (6) Depression: Status: Ruled-out (7) Acute psychosis: Status: Acute (8) Hallucinations: Status: Acute (9) Paranoia: Status: Acute (10) Long-term current use of methadone for opiate dependence: Status: Chronic (11) Methamphetamine abuse in remission: Status: Acute (12) Chronic post-traumatic stress disorder: Status: Chronic (13) Marijuana use, episodic: Status: Chronic Reason for Visit Reason for Visit: auditory hallucinations Involuntary Hold Information 96 Hour Hold: 96 Hour Involuntary Admission: No Mental Status Exam MSE Comments: This is a underweight white female in hospital scrubs with adequate grooming and eye contact. Some tattooing on exposed skin. No abnormal movements except for mild psychomotor agitation. Cooperative with exam in mild distress. Speech was slightly increased rate and normal volume. Mood described as okay, affect congruent. Thought process organized, thought content: patient denies suicidal or homicidal ideation, there were no delusions reported but paranoia and possibly persecutory thinking noted, she endorsed hearing voices but denied any visual hallucinations. Attention and concentration were intact and memory appeared unreliable but none were formally tested. She?s alert and oriented times three. Insight and judgment appeared limited and impulse control appeared limited. Discharge Data Studies Completed and Pending: Laboratory Results WBC 8.32 10^3/uL (3.2 9-11.43) 11/08/23 13:41 RBC 4.59 10^6/uL (3.8 5-5.65) 11/08/23 13:41 Hgb 13.10 g/dL (11.27 -16.99) 11/08/23 13:41 Hct 40.3 % (36-47) 11/08/23 13:41 MCV 87.8 fl (85-98) 11/08/23 13:41 MCH 28.5 pg (27-33) 11/08/23 13:41 MCHC 32.5 g/dL (30-55) 11/08/23 13:41 RDW 12.2 % (12.1-15.1 ) 11/08/23 13:41 Plt Count 322 10^3/cmm (157 -399) 11/08/23 13:41 MPV 9.7 fL (7.4-10.4) 11/08/23 13:41 Neut % (Auto) 70.2 % 11/08/23 13:41 Lymph % (Auto) 22.8 % 11/08/23 13:41 Bath % (Auto) 5.3 % 11/08/23 13:41 Eos % (Auto) 0.7 % 11/08/23 13:41 Baso % (Auto) 0.8 % 11/08/23 13:41 Neut # (Auto) 5.83 10^3/uL (1.8 -7.7) 11/08/23 13:41 Lymph # (Auto) 1.9 10^3/uL (0.8- 4.8) 11/08/23 13:41 Bath # (Auto) 0.4 10^3/uL (0.2- 0.9) 11/08/23 13:41 Eos # (Auto) 0.1 10^3/uL (0.0- 0.8) 11/08/23 13:41 Baso # (Auto) 0.1 10^3/uL (0.0- 0.1) 11/08/23 13:41 Nucleated RBC % (a uto) 0 % 11/08/23 13:41 Nucleated RBCs # 0.0 /100WBC 11/08/23 13:41 Sodium 136 mmol/L (136-1 45) 11/08/23 13:41 Potassium 3.6 mmol/L (3.5-5 .1) 11/08/23 13:41 Chloride 101 mmol/L (98-10 7) 11/08/23 13:41 Carbon Dioxide 21 mmol/L (22-29) L 11/08/23 13:41 Anion Gap 17.6 (5-19) 11/08/23 13:41 BUN 14 mg/dL (6-20) 11/08/23 13:41 Creatinine 0.6 mg/dL (0.5-0. 9) 11/08/23 13:41 GFR Calculation 113.1 mL/min (90- 130) 11/08/23 13:41 Glucose 176 mg/dL (65-115 ) H 11/08/23 13:41 Calculated Osmolal ity 287 mOsm/kg (285- 295) 11/08/23 13:41 Calcium 9.0 mg/dL (8.5-10 .5) 11/08/23 13:41 Total Bilirubin 0.5 mg/dL (0.15-1 .2) 11/08/23 13:41 AST 18 U/L (0-32) 11/08/23 13:41 ALT 11 U/L (0-33) 11/08/23 13:41 Alkaline Phosphata se 77 U/L (35-105) 11/08/23 13:41 Total Protein 7.3 g/dL (6.6-8.7 ) 11/08/23 13:41 Albumin 4.5 g/dL (3.5-5.2 ) 11/08/23 13:41 Globulin 2.8 g/dL (1.3-4.6 ) 11/08/23 13:41 HCG, Qual Negative (Negati ve) 11/08/23 13:41 Salicylates < 0.3 mg/dL (3-10 ) L 11/08/23 13:41 Urine Opiates Scre en Negative ng/mL (N egative) 11/08/23 13:49 Acetaminophen < 5.0 ug/mL (10-3 0) L 11/08/23 13:41 Ur Barbiturates Sc reen Negative ng/mL (N egative) 11/08/23 13:49 Ur Phencyclidine S crn Negative ng/mL (N egative) 11/08/23 13:49 Ur Amphetamines Sc reen Negative ng/mL (N egative) 11/08/23 13:49 U Benzodiazepines Scrn Negative ng/mL (N egative) 11/08/23 13:49 Urine Cocaine Scre en Negative ng/mL (N egative) 11/08/23 13:49 U Marijuana (THC) Screen Positive ng/mL (N egative) H 11/08/23 13:49 Ethyl Alcohol < 10 mg/dL (0-10) 11/08/23 13:41 Vitals: Last Vital Signs Temp 98.4 F 11/16/23 13:48 Pulse 111 H 11/16/23 13:48 Resp 16 11/16/23 13:48 BP 119/76 11/16/23 13:48 Pulse Ox 100 11/16/23 13:48 O2 Del Method Room Air 11/16/23 13:48 Discharge Plan Discharge Patient Disposition: Home Condition: Stable Prescriptions: New docusate sodium 100 mg Capsule 100 mg PO BEDTIME 30 Days Qty: 30 1RF paliperidone 6 mg Tablet Extended Release 24 Hr 6 mg PO DAILY 30 Days Qty: 30 1RF Continued methadone 40 mg tablet,soluble 65 mg PO DAILY Discontinued cephalexin 500 mg capsule 500 mg PO BID 5 Days Qty: 10 0RF Discharge Orders: Discharge Order (Routine); Ordered 11/16/23 Ordered By: Elkin Ng Referrals: [facility] [Other] - 1-3 days (You have been referred. ) [facility] [Other] - 11/21/23 (Hours are 6:00 am to 12:30 pm. ) [facility] [Other] Richard Tierney MD [Primary Care Provider] - Vianey Mckeon PMHNP [Staff Physician] - 11/20/23 7:45 am (Appt scheduled 11/20/23 ck in 7:45 Am with Edvin Villafuerte for safety plan only.) Discharge Diet: Regular Discharge Activity: Resume usual activity Patient Instructions: Opioid Safety, Pain Management Discharge Attestations NPU Time Spent in Discharge Care*: less than 30 min Specific Discharge Activities: Specific discharge activities: educating patient, discussing with pillowcase maker/social workers/dc planners, documenting/other paperwork and evaluating patient/reviewing data Coding Level of Care Code Acute Code for [facility] Fwd Diagnoses Depression with suicidal ideation F32.A; R45.851 PTSD (post-traumatic stress disorder) F43.10 Opioid use disorder, severe, in early remission F11.21 Methamphetamine use disorder, severe F15.20 Suicidal ideation R45.851 Depression F32.A Acute psychosis F23 Hallucinations R44.3 Paranoia F22 Long-term current use of methadone for opiate dependence F11.20 Methamphetamine abuse in remission F15.11 Chronic post-traumatic stress disorder F43.12 Marijuana use, episodic F12.90
[2023-11-16 16:24] VITALS: BP 119/76; PULSE 111; RESP 16; TEMP 36.9; O2SAT 100
== END 2023-11-16 16:37 | disposition home or self-care (01) | DRG 885 ==
LOC: ER 15:23 → NP 15:43
PROVIDERS: Admitting Provider Psychiatry & Neurology Psychiatry; Emergency Provider Physician Assistant; PCP Family Medicine; Visit Provider Psychiatry & Neurology Psychiatry
DX: F23 Brief psychotic disorder (principal); R45.851 Suicidal ideations; F11.20 Opioid dependence, uncomplicated; Z68.1 Body mass index [BMI] 19.9 or less, adult; F43.10 Post-traumatic stress disorder, unspecified; F32.A Depression, unspecified; F15.11 Other stimulant abuse, in remission; F12.90 Cannabis use, unspecified, uncomplicated; R63.6 Underweight
CPT/HCPCS: 36415; 80053; 80306; 80307; 84703; 85025; 97150; 97165; 99285

== ENCOUNTER 2023-11-22 10:39 | Emergency (ER) | payer BC, MEDICAID, SELFPAY ==
--- NOTE | 2023-11-22 10:52 | XR_ITS ---
WS: [id number] Exam: XR chest 1V portable [id number] Date/Time of Exam: 11/22/2023 11:05 AM Reason For Exam: cough Comparison 09/07/2021. Lungs are clear and fully inflated. Normal cardiomediastinal silhouette and regional bony elements. XR/XR chest 1V portable [id number] IMPRESSION: 1. Negative chest.
[2023-11-22 10:58] VITALS: BP 113/68; PULSE 71; RESP 18; TEMP 36.3; O2SAT 97; BMI 20.5
--- NOTE | 2023-11-22 11:45 | W.ED.URI ---
HPI - URI/Sore Throat General: Chief Complaint: Upper Respiratory Infection Stated Complaint: Luisgetwilli,Cough Time Seen by Provider: 11/22/23 11:20 History of Present Illness: 37-year-old female who presents emergency room with upper respiratory symptoms. She has had congestion, cough, headache and some mild shortness of breath. She is concern for COVID. She also says she has some issues with constipation. She has been on Colace. However she does take methadone. No nausea or vomiting. No abdominal pain. She does has trouble pushing out stool she says. Related Data Home Medications Medication Instructions Recorded Confirmed methadone 40 mg soluble tablet 65 mg PO DAILY 11/08/23 11/22/23 Previous Rx's Medication Instructions Recorded docusate sodium 100 mg capsule 100 mg PO BEDTIME 30 days #30 caps 11/16/23 paliperidone 6 mg tablet,extended 6 mg PO DAILY 30 days #30 tabs 11/16/23 release 24 hr azithromycin 250 mg tablet See Rx Instructions PO .COMPLEX #6 11/22/23 (Zithromax Z-Elias) tabs dexamethasone 6 mg tablet 6 mg PO DAILY 5 days #5 tabs 11/22/23 glycerin (adult) 1 supp IN DAILY PRN constipation 11/22/23 #12 ea magnesium citrate 296 ml PO ONCE #296 mL 11/22/23 polyethylene glycol 3350 17 17 g PO DAILY #510 grams 11/22/23 gram/dose oral powder (Miralax) Allergies Allergy/AdvReac Type Severity Reaction Status Date / Time quetiapine [From Seroquel] Allergy Unknown Verified 11/08/23 13:15 tramadol Allergy ADR-Seizure Verified 11/08/23 13:15 trazodone AdvReac ADR-Shakine Verified 11/08/23 21:46 ss Review of Systems Narrative: Constitutional symptoms: Negative except as documented in HPI. Skin symptoms: Negative except as documented in HPI. Eye symptoms: Negative except as documented in HPI. ENMT symptoms: Negative except as documented in HPI. Respiratory symptoms: Negative except as documented in HPI. Cardiovascular symptoms: Negative except as documented in HPI. Gastrointestinal symptoms: Negative except as documented in HPI. Genitourinary symptoms: Negative except as documented in HPI. Musculoskeletal symptoms: Negative except as documented in HPI. Neurologic symptoms: Negative except as documented in HPI. Psychiatric symptoms: Negative except as documented in HPI. Endocrine symptoms: Negative except as documented in HPI. PFSH ED PFSH: Medical History Methamphetamine abuse in remission Marijuana use, episodic Vaping nicotine dependence, tobacco product Long-term current use of methadone for opiate dependence Chronic post-traumatic stress disorder Psychiatric care Social History Smoking and tobacco/nicotine status: current every day tobacco/nicotine user Alcohol intake: current Substance/Drug Use: current Physical Exam Narrative: EXAM NARRATIVE: General: Alert, no acute distress. Skin: Warm, dry. Head: Normocephalic, atraumatic. Neck: Supple, trachea midline. Eye: Extraocular movements are intact. Ears, nose, mouth and throat: mucosa moist. Cardiovascular: Regular, Normal peripheral perfusion. Respiratory: Lungs are clear to auscultation, respirations are non-labored, breath sounds are equal, Symmetrical chest wall expansion. Gastrointestinal: Soft, Nontender, Non distended Musculoskeletal: Normal ROM, no deformity. Neurological: Alert and oriented, No focal neurological deficit observed. Psychiatric: Cooperative, appropriate mood & affect. Course Vital Signs: Vital signs: Vital Signs Temperature 97.4 F L 11/22/23 10:58 Pulse Rate 71 11/22/23 10:58 Respiratory Rate 18 11/22/23 10:58 Blood Pressure 113/68 11/22/23 10:58 Pulse Oximetry 97 11/22/23 10:58 Oxygen Delivery Me thod Room Air 11/22/23 10:58 MDM - URI/Sore Throat Medical Decision Making Chest x-ray: No acute process. No infiltrate. No pneumothorax. This was reviewed and interpreted by myself the ER physician. COVID is pending at discharge. She will call back for results. Assessment and plan: Upper respiratory infection Constipation Chronic pain syndrome - Discharged home - Discussed plan with patient. Answered any questions. - Evaluation and treatment of this problem were appropriate in the emergency setting. Lab Data Radiology Impressions Chest X-Ray 11/22/23 10:52 IMPRESSION: 1. Negative chest. All radiology interpretation(s) finalized by discharge Discharge Plan Discharge Patient Disposition: Home Clinical Impression: Upper respiratory infection, Constipation Condition: Stable Prescriptions: New Zithromax Z-Elias 250 mg tablet See Rx Instructions .ROUTE .COMPLEX Qty: 6 0RF Rx Instructions: For 250 mg dose pack: take 500 mg today (day 1), then 250 mg for 4 days (days 2-5) dexamethasone 6 mg tablet 6 mg PO DAILY 5 Days Qty: 5 0RF magnesium citrate Solution 296 ml PO ONCE Qty: 296 0RF Miralax 17 gram/dose powder 17 g PO DAILY Qty: 510 0RF Rx Instructions: Take 1 scoop daily while taking pain medications. glycerin (adult) Suppository 1 supp IN DAILY PRN (Reason: constipation) Qty: 12 0RF No Action methadone 40 mg tablet,soluble 65 mg PO DAILY docusate sodium 100 mg Capsule 100 mg PO BEDTIME 30 Days Qty: 30 1RF paliperidone 6 mg Tablet Extended Release 24 Hr 6 mg PO DAILY 30 Days Qty: 30 1RF Discharge Orders: Discharge ED (Routine); Ordered 11/22/23 Ordered By: Sarah Reyes Referrals: Richard Tierney MD [Primary Care Provider] - Patient Instructions: Constipation (ED), Upper Respiratory Infection (ED) Activity Restrictions/Additional Instructions: Thank you for choosing [facility] for your healthcare needs today. Please realize this is an emergency room and that we are providing you with a medical screening exam and this may not be complete and all inclusive of all the testing and or work up that you may need to determine your ailment or severity of your illness. You have been screened and evaluated and felt safe for discharge. Health conditions do change or evolve sometimes and as such it is important that you follow up with your Primary Doctor to be re checked, 3-5 days is a general good time frame for follow up. You are always welcome to return to the ED for re assessment if your symptoms are worsening or you have new concerns Coding Level of Care Code ED [facility] for Keren Carrillo
[2023-11-22 12:01] LABS: SARS Covid-2 Antigen Positive (Negative)
[2023-11-22 12:07] VITALS: BP 122/81; PULSE 75; O2SAT 99
== END 2023-11-22 12:04 | disposition home or self-care (01) ==
PROVIDERS: Emergency Medicine; Emergency Provider Emergency Medicine; PCP Family Medicine
DX: J06.9 Acute upper respiratory infection, unspecified (principal); K59.00 Constipation, unspecified; Z79.891 Long term (current) use of opiate analgesic; Z72.0 Tobacco use; U07.1 COVID-19
CPT/HCPCS: 71045; 87426; 99284

== ENCOUNTER 2024-01-04 07:30 | Outpatient (CLI) | payer BC, MEDICAID, SELFPAY ==
--- NOTE | 2024-01-04 07:45 | USCV_ITS ---
Barbara Poe Age: 38 Gender: F : 1985 Exam Date: 01/04/2024 07:48 Ordering Phys: Aashish Bai MD ([email or web address]) Technologist: Exam [place] [facility] [place]: murmur BP: 120 / 70 HR: 68 Rhythm: Sinus Technical Quality: Adequate MEASUREMENTS (Male / Female) Normal Values 2D ECHO LV Diastolic Diameter PLAX 4.1 cm 4.2 - 5.9 / 3.9 - 5.3 cm IVS Diastolic Thickness 0.9 cm 0.6 - 1.0 / 0.6 - 0.9 cm IVS Systolic Thickness 1.1 cm LVPW Diastolic Thickness 1.1 cm 0.6 - 1.0 / 0.6 - 0.9 cm LVPW Systolic Thickness 1.2 cm LVOT Diameter 2.0 cm LV Ejection Fraction 2D Teich 48.9 % LV Ejection Fraction MOD 4C 47.2 % LV Ejection Fraction MOD 2C 55.1 % LV Ejection Fraction 2C AL 53.8 % LA Diameter 2.5 cm RA Systolic Volume 4C AL 31.0 ml RA Systolic Volume 4C MOD 29.2 ml Aorta at Sinotubular Diameter 2.4 cm DOPPLER AV Peak Velocity 185.3 cm/s LVOT Peak Velocity 92.0 cm/s AV Area Cont Eq vti 2.2 cm squared AV Area Cont Eq pk 1.6 cm squared MV Peak Velocity 116.0 cm/s MV Area PHT 4.3 cm squared Mitral E to A Ratio 1.4 TV Peak Velocity 268.0 cm/s TR Peak Velocity 334.0 cm/s TR Peak Gradient 44.6 mmHg TV Peak E Velocity 77.0 cm/s Right Atrial Pressure 3.0 mmHg Pulmonary Artery Systolic Pressu 47.6 mmHg PV Peak Velocity 91.0 cm/s FINDINGS Left Ventricle Normal left ventricular size, systolic function and wall thickness, with no regional wall motion abnormalities. Left ventricular ejection fraction is estimated at 60 %. Grade II/IV diastolic dysfunction, moderately elevated filling pressures. Right Ventricle Normal right ventricular size and systolic function. Mild pulmonary hypertension, RVSP 47.6 mmHg. Right Atrium The right atrium is normal in size. Left Atrium The left atrium is normal in size. Mitral Valve Structurally normal mitral valve without significant stenosis or prolapse. There is no mitral regurgitation. Aortic Valve Moderate aortic valve calcification. No aortic valve stenosis. Mild aortic valve regurgitation. Tricuspid Valve Structurally normal tricuspid valve without significant stenosis or regurgitation. Pulmonary artery systolic pressure is normal. Pulmonic Valve Structurally normal pulmonic valve without significant stenosis. There is no pulmonic regurgitation. Pericardium Normal pericardium without effusion. Aorta Normal ascending aorta dimension. IVC The inferior vena cava appears normal. CONCLUSIONS Normal left ventricular size, systolic function and wall thickness, with no regional wall motion abnormalities. Left ventricular ejection fraction is estimated at 60 %. Grade II/IV diastolic dysfunction, moderately elevated filling pressures. Moderate aortic valve calcification. No aortic valve stenosis. Mild aortic valve regurgitation. ccccccNormal right ventricular size and systolic function. Mild pulmonary hypertension, RVSP 47.6 mmHg. There is no pericardial effusion. Right atrial pressure is around 10 mm of mercury. Aashish Bai MD (Electronically Signed) Final Date: 04 January 2024 12:22 S
== END 2024-01-04 07:31 | disposition home or self-care (01) ==
LOC: RAD 07:31
PROVIDERS: PCP Family Medicine; Visit Provider Internal Medicine Cardiovascular Disease
DX: R06.02 Shortness of breath (principal); I35.1 Nonrheumatic aortic (valve) insufficiency; I27.20 Pulmonary hypertension, unspecified
CPT/HCPCS: 93306

== ENCOUNTER 2024-01-05 17:24 | Emergency (ER) | payer BC, MEDICAID, SELFPAY ==
[2024-01-05 17:27] VITALS: BP 123/78; PULSE 66; RESP 16; TEMP 36.7; O2SAT 97
--- NOTE | 2024-01-05 17:38 | ECG_ITS ---
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 Measurements Intervals [place] Rate: 74 P: 74 WA: 152 QRS: 68 QRSD: 78 T: 67 QT: 390 QTc: 435 Interpretive Statements SINUS RHYTHM POSSIBLE RIGHT ATRIAL ENLARGEMENT [0.25mV P-WAVE] Compared to ECG 11/08/2023 03:44:38 Sinus bradycardia no longer present Sinus arrhythmia no longer present ST (T wave) deviation no longer present Electronically Signed On 01-05-2024 22:32:05 CDT by Nica Sotomayor M.D. [email or web address]
[2024-01-05 18:16] VITALS: RESP 18
--- NOTE | 2024-01-05 18:21 | ED.C_ITS ---
HPI - Psych General: Chief Complaint: Psychiatric Symptoms Stated Complaint: MHE Time Seen by Provider: 01/05/24 17:37 History of Present Illness: 38-year-old female presents the emergenc y department reporting that her anxiety is bothering her. The patient is currently taking paliperidone 3 mg in the morning and 6 mg at night as well as propranolol 10 mg twice daily as needed anxiety. She does not take the propranolol very often because she does not feel that it works. Patient reports she had a bad day and it caused her anxiety to spike. She does endorse having chronic auditory hallucinations and sometimes visual hallucinations. None of them are telling her to hurt herself or anyone else. She reports the racing and circling thoughts in her head sometimes prohibit her from sleeping well. She is getting on average 6 hours of sleep per night. Patient denies any drug abuse other than marijuana. She does use methadone for history of opiate abuse in remission. She denies any use of methamphetamine. The patient reports she had fleeting thoughts of suicide earlier in the day. She reports that she is not feeling suicidal any longer and never had any intention, method, timeline. She feels these thoughts are sometimes a result of her anxiety. Originally, she thought she might want to be admitted, but now feels that she could just have medication management. She denies any organic medical illnesses recently. Associated symptoms: Deny delusions Related Data Home Medications Medication Instructions Recorded Confirmed docusate sodium 100 mg capsule 100 mg PO BEDTIME PRN 12/19/23 12/19/23 methadone 40 mg soluble tablet 75 mg PO .morning 12/19/23 12/19/23 polyethylene glycol 3350 17 17 g PO DAILY PRN 12/19/23 12/19/23 gram/dose oral powder (Miralax) Previous Rx's Medication Instructions Recorded paliperidone 3 mg tablet,extended 3 mg PO .10 am #30 tabs 12/19/23 release 24 hr (Invega) paliperidone 6 mg tablet,extended 6 mg PO .9 pm 30 days #30 tabs 12/19/23 release 24 hr propranolol 10 mg tablet 10 mg PO BID PRN anxiety #60 tabs 12/19/23 baclofen 10 mg tablet 10 mg PO .hs PRN insomnia due to 01/05/24 anxiety 30 days #14 tabs buspirone 10 mg tablet 10 mg PO BID PRN anxiety 30 days 01/05/24 #60 tabs hydroxyzine HCl 25 mg tablet 25 mg PO Q8H PRN anxiety #60 tabs 01/05/24 Allergies Allergy/AdvReac Type Severity Reaction Status Date / Time tramadol Allergy ADR-Seizure Verified 01/05/24 17:33 quetiapine [From Seroquel] AdvReac ADR-Anxiety Verified 01/05/24 17:33 trazodone AdvReac ADR-Shakine Verified 01/05/24 17:33 ss Review of Systems General: Reports: 10 or more systems reviewed and unremarkable except in HPI and below Const: Denies: fever(s), chills or body aches Card: Denies: chest pain, edema or syncope Resp: Denies: dyspnea or productive cough GI: Denies: abdominal pain, nausea, vomiting or diarrhea Musc: Denies: neck pain, back pain, extremity pain or extremity swelling PFSH ED PFSH: Medical History (Updated 01/05/24 @ 18:19 by Jorge Rogers MD) Acute psychosis Generalized anxiety disorder with panic attacks 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, tobacco product Long-term current use of methadone for opiate dependence Chronic post-traumatic stress disorder Psychiatric care Social History Smoking and tobacco/nicotine status: current every day tobacco/nicotine user Alcohol intake: current Substance/Drug Use: current Physical Exam Const: COMMON NORMALS: no limitations, alert and well nourished EXAM LIMITATIONS: no altered mental status GENERAL APPEARANCE: well kempt HENMT: COMMON NORMALS: normocephalic, atraumatic and external ears normal HEAD & SCALP: normocephalic and atraumatic EXTERNAL EAR: Yes external ears normal MOUTH: no muffled voice Eye: COMMON NORMALS: EOMs intact bilaterally, conjunctivae normal and no scleral icterus CONJUNCTIVA: Yes conjunctivae normal Neck/C-Spine: COMMON NORMALS: no JVD GENERAL: Yes normal visual inspection and Yes trachea midline Resp: COMMON NORMALS: normal respiratory effort and No use of accessory muscles Cardio: COMMON NORMALS: no JVD Extremity: COMMON NORMALS: normal to inspection Neuro: COMMON NORMALS: moves all extremities, no focal motor deficits and no sensory deficits noted SENSORIUM/ORIENTATION: Yes alert SPEECH: speech normal Psych: COMMON NORMALS: Normal thought process present APPEARANCE: Yes grossly normal and Yes well kempt ATTITUDE: Yes engaged, No paranoid, No Withdrawn affect present, No bizarre, No uncooperative, No evasive and No Guarded attititude/behavior present ACTIVITY/MOTOR BEHAVIOR: Yes appropriate eye contact and Yes restless SPEECH: Yes rapid, No loud, No delayed, No Echolalia present (Psych) and No slurred MOOD & AFFECT: No depressed mood, No elevated mood, No apathetic, Yes anxious, No euphoric, No irritable, No sad, No tearful and No Labile affect present THOUGHT PROCESS: Normal thought process present THOUGHT CONTENT: No Suicidality present, No Homicidality present, No Phobia(s) present, No delusions, Yes Hallucination(s) present (Reports chronic auditory hallucinations) auditory, No Derealization present, No Depersonalization present, No rumination(s), No Compulsions present (thought content) and No Obsession(s) present ATTENTION/CONCENTRATION: Yes attention grossly intact INSIGHT: Good insight present (Psych) Skin: COMMON NORMALS: no rashes or lesions noted, turgor normal and no jaundice GENERAL SKIN EXAM: no rashes or lesions noted and turgor normal Course Vital Signs: Vital signs: Vital Signs Temperature 98.1 F 01/05/24 17:27 Pulse Rate 66 01/05/24 17:27 Respiratory Rate 18 01/05/24 18:16 Blood Pressure 123/78 01/05/24 17:27 Pulse Oximetry 97 01/05/24 17:27 Oxygen Delivery Me thod Room Air 01/05/24 17:27 [facility] - Psych Medical Decision Making 38-year-old female with report of chronic hallucinations who presents with anxiety. She reported fleeting thought of suicide earlier in the day. It has not recurred. She reports she never had any desire to hurt herself nor any method or timeline. She thinks this sometimes is a result of her anxiety. Previous notes have diagnosed her with possible schizoaffective disorder. Patient reports she is compliant with her paliperidone. The propranolol does not work very well so she does not take it very often. She thinks if she can get her anxiety and sleep under control, she will be doing better. Patient changed her mind about wanting to be admitted. She thinks that if we can do some medication management of her anxiety, she will do well. She does live with her father who keeps an eye on her. She was originally diagnosed with methamphetamine abuse although I see that this may have been erroneous as the urine drug screen was positive for methadone not methamphetamine. Patient repor ts she does not abuse stimulants. The patient can contract for safety. She can contract for medication compliance. She is not in imminent harm to herself or anyone else. I think we can discharge her with medication management. I discussed with Dr. Ng. He has recommended BuSpar and hydroxyzine as as needed meds. Baclofen 10 mg can be used for bad insomnia due to anxiety. Patient has side effects to Seroquel and trazodone. We will institute these interventions and discharge the patient with specific return precautions. No radiology studies performed this visit EKG Data EKG 1: Interpretation: Sinus rhythm, rate 74, atrial enlargement suggested, no concerning ST segment elevations or depressions. Discharge Plan Discharge Patient Disposition: Home Clinical Impression: Anxiety, Auditory hallucinations Condition: Stable Prescriptions: New hydroxyzine HCl 25 mg tablet 25 mg PO Q8H PRN (Reason: anxiety) Qty: 60 0RF baclofen 10 mg tablet 10 mg PO .hs PRN (Reason: insomnia due to anxiety) 30 Days Qty: 14 0RF buspirone 10 mg tablet 10 mg PO BID PRN (Reason: anxiety) 30 Days Qty: 60 0RF No Action methadone 40 mg tablet,soluble 75 mg PO .morning polyethylene glycol 3350 [Miralax] 17 gram/dose powder 17 g PO DAILY PRN Rx Instructions: Take 1 scoop daily while taking pain medications. docusate sodium 100 mg capsule 100 mg PO BEDTIME PRN propranolol 10 mg tablet 10 mg PO BID PRN (Reason: anxiety) Qty: 60 1RF Rx Instructions: May take one tablet twice per day as needed for anxiety paliperidone 6 mg tablet extended release 24 hr 6 mg PO .9 pm 30 Days Qty: 30 1RF Rx Instructions: Take one tablet at 9 pm paliperidone [Invega] 3 mg tablet extended release 24 hr 3 mg PO .10 am Qty: 30 1RF Rx Instructions: Take one tablet at 10 am Discharge Orders: Discharge ED (Routine); Ordered 01/05/24 Ordered By: Jorge Rogers Referrals: Crase,Richard A, MD [Primary Care Provider] - 1-3 days (Follow-up on anxiety, chronic hallucinations) Patient Instructions: Anxiety (ED), Hallucinations (ED), Pain Management Activity Restrictions/Additional Instructions: We have initiated some medication changes for you. You may take baclofen 10 mg at night if you have severe anxiety that is not allowing you to sleep. During the day, if you have severe anxiety, you may take a BuSpar or hydroxyzine. These can help with racing thoughts and anxiety. Continue taking your paliperidone and propranolol. If you have thoughts of hurting yourself or anyone else, call 911 or return to the ER. If you feel paranoid or your symptoms are getting worse, you should go to the ER. Coding Level of Care Code ED Cook Tortilla for Keren Carrillo
[2024-01-05 18:53] VITALS: BP 141/68; PULSE 81; O2SAT 99
== END 2024-01-05 18:53 | disposition home or self-care (01) ==
PROVIDERS: Emergency Provider Emergency Medicine; PCP Family Medicine
DX: F41.9 Anxiety disorder, unspecified (principal); R44.0 Auditory hallucinations; Z79.891 Long term (current) use of opiate analgesic; Z72.0 Tobacco use
CPT/HCPCS: 93005; 99283

== ENCOUNTER 2024-08-07 17:11 | Emergency (ER) | payer BC, MEDICAID, SELFPAY ==
[2024-08-07 17:19] VITALS: BP 125/92; PULSE 125; RESP 16; TEMP 37.2; O2SAT 96; BMI 25.0
--- NOTE | 2024-08-07 17:48 | ECG_ITS ---
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
[2024-08-07 18:05] LABS: Basophils # 0.1 10^3/uL (0.0-0.1); Basophils % 1.4 %; Eosinophils # 0.1 10^3/uL (0.0-0.8); Eosinophils % 1.4 %; Hematocrit 43.3 % (36-47); Lymphocytes # 2.1 10^3/uL (0.8-4.8); Lymphocytes % 22.8 %; Mean Corpuscular HGB Conc 32.3 g/dL (30-55); Mean Corpuscular Volume 86.6 fl (85-98); Mean Platelet Volume 9.3 fL (7.4-10.4); Monocytes # 0.5 10^3/uL (0.2-0.9); Monocytes % 5.8 %; Neutrophils # 6.12 10^3/uL (1.8-7.7); Neutrophils % 68.3 %; Nucleated Red Blood Cells % 0 %; Platelet Count 357 10^3/cmm (157-399); Red Cell Distribution Width 12.3 % (12.1-15.1); White Blood Count 8.98 10^3/uL (3.29-11.43)
[2024-08-07 18:16] LABS: HCG, Serum Qual Negative (Negative)
[2024-08-07 18:21] LABS: Alanine Aminotransferase 23 U/L (0-33); Albumin Level 4.5 g/dL (3.5-5.2); Alkaline Phosphatase 111 U/L (35-105); Aspartate Amino Transferase 26 U/L (0-32); Blood Urea Nitrogen 15 mg/dL (6-20); Calcium 9.4 mg/dL (8.5-10.5); Carbon Dioxide 25 mmol/L (22-29); Chloride 99 mmol/L (98-107); Creatinine Clr Calc Pharmacy 106.6852; Globulin 2.6 g/dL (1.3-4.6); Glomerular Filtration Rate 94.2 mL/min (90-130); Glucose 110 mg/dL (65-115); Lipase 28 U/L (13-60); Osmolality Calculated 287 mOsm/kg (285-295); Sodium 138 mmol/L (136-145); Total Bilirubin 0.2 mg/dL (0.15-1.2); Total Protein 7.1 g/dL (6.6-8.7)
[2024-08-07 18:25] LABS: Anion Gap 18.1 (5-19); Potassium 4.1 mmol/L (3.5-5.1)
--- NOTE | 2024-08-07 19:45 | XRR_ITS ---
PROCEDURE INFORMATION: Exam: XR Abdomen Exam date and time: 08/07/2024 7:59 PM Age: 38 years old Clinical indication: Abdominal pain; Generalized; Prior surgery; Surgery date: 6+ months; Surgery type: Csection; Additional info: Abd pain TECHNIQUE: Imaging protocol: Radiologic exam of the abdomen. Views: Frontal supine view of the abdomen. 1 View. COMPARISON: CT abdomen pelvis w con* [id number] 09/07/2021 9:23 PM FINDINGS: Gastrointestinal tract: Large amount of retained stool in the colon from constipation.. No bowel dilation. Bones/joints: Unremarkable. XR/XR abdomen 1V* [id number] IMPRESSION: As above.
--- NOTE | 2024-08-07 19:46 | W.ED.GENADLT ---
HPI - General Adult General: Chief complaint: General Medical Stated complaint: stomach Time Seen by Provider: 08/07/24 19:43 History of Present Illness: 38-year-old female who presents emergency room with abdominal issues. She says she feels like something is moving in her belly. She is worried she might be or constipated. No pain. No nausea or vomiting. No dysuria. No altered mental status. No fevers. Related Data Home Medications ?Medication ?Instructions ?Recorded ?Confirmed methadone 40 mg soluble tablet 90 mg PO .morning 05/10/24 06/18/24 Previous Rx's ?Medication ?Instructions ?Recorded hydroxyzine HCl 50 mg tablet 100 mg (2 x 50 mg) PO .HS PRN 05/10/24 insomnia #60 tabs clomipramine 50 mg capsule 50 mg PO .HS #30 caps 06/18/24 risperidone 1 mg tablet (Risperdal) 1 mg PO BID #60 tabs 06/18/24 venlafaxine 150 mg 150 mg PO DAILY #30 caps 06/18/24 capsule,extended release 24 hr (Effexor XR) cephalexin 500 mg tablet 500 mg PO TID 5 days #15 tabs 08/07/24 glycerin (adult) 1 supp MD DAILY PRN constipation 08/07/24 #12 ea magnesium citrate 296 ml PO ONCE #296 mL 08/07/24 polyethylene glycol 3350 17 17 g PO DAILY #510 grams 08/07/24 gram/dose oral powder (Miralax) Allergies Allergy/AdvReac Type Severity Reaction Status Date / Time tramadol Allergy ADR-Seizure Verified 08/07/24 17:22 quetiapine (From Seroquel) AdvReac ADR-Anxiety Verified 08/07/24 17:22 trazodone AdvReac ADR-Shakine Verified 08/07/24 17:22 ss Review of Systems Narrative: Constitutional symptoms: Negative except as documented in HPI. Skin symptoms: Negative except as documented in HPI. Eye symptoms: Negative except as documented in HPI. ENMT symptoms: Negative except as documented in HPI. Respiratory symptoms: Negative except as documented in HPI. Cardiovascular symptoms: Negative except as documented in HPI. Gastrointestinal symptoms: Negative except as documented in HPI. Genitourinary symptoms: Negative except as documented in HPI. Musculoskeletal symptoms: Negative except as documented in HPI. Neurologic symptoms: Negative except as documented in HPI. Psychiatric symptoms: Negative except as documented in HPI. Endocrine symptoms: Negative except as documented in HPI. 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 Skin: Warm, dry. Head: Normocephalic, atraumatic. Neck: Supple, trachea midline. Eye: Extraocular movements are intact. Ears, nose, mouth and throat: mucosa moist. Cardiovascular: Regular, Normal peripheral perfusion. Respiratory: Lungs are clear to auscultation, respirations are non-labored, breath sounds are equal, Symmetrical chest wall expansion. Gastrointestinal: Soft, Nontender, Non distended Musculoskeletal: Normal ROM, no deformity. Neurological: Alert and oriented, No focal neurological deficit observed. Psychiatric: Cooperative, appropriate mood & affect. Course Vital Signs: Vital signs: Vital Signs Temperature 98.9 F 08/07/24 17:19 Pulse Rate 96 08/07/24 19:47 Respiratory Rate 16 08/07/24 17:19 Blood Pressure 126/83 08/07/24 19:47 Pulse Oximetry 93 08/07/24 19:47 Oxygen Delivery Me thod Room Air 08/07/24 17:19 [facility] - General Adult Medical Decision Making Medical decision making: Differential diagnosis including but not limited to and based on the above HPI, review of systems and physical exam: Orders placed to evaluate differential diagnosis based on the above differential, HPI and physical exam. Rule out . Confirmed constipation. Abdomen x-ray: Demonstrates constipation. No signs of obstruction. Films were interpreted by myself the emergency room provider and pending final radiology review. Lab Review: Laboratory results were reviewed and interpreted by myself the emergency room physician. No leukocytosis. No anemia. No renal failure. She does have a bit of urinary tract infection. I reviewed the patient's medical record. Reexamination: Patient remained stable. No increased work of breathing. No altered mental status. No focal motor deficits. Assessment and plan: Constipation Urinary tract infection ? Mag citrate in the emergency room. - Discharged home - Discussed plan with patient. Answered any questions. - Evaluation and treatment of this problem were appropriate in the emergency setting. Lab Data 08/07/24 17:54 08/07/24 17:54 Laboratory Results WBC 8.98 10^3/uL (3.29-11.43) 08/07/24 17:54 RBC 5.00 10^6/uL (3.85-5.65) 08/07/24 17:54 Hgb 14.00 g/dL (11.27-16.99) 08/07/24 17:54 Hct 43.3 % (36-47) 08/07/24 17:54 MCV 86.6 fl (85-98) 08/07/24 17:54 MCH 28.0 pg (27-33) 08/07/24 17:54 MCHC 32.3 g/dL (30-55) 08/07/24 17:54 RDW 12.3 % (12.1-15.1) 08/07/24 17:54 Plt Count 357 10^3/cmm (157-399) 08/07/24 17:54 MPV 9.3 fL (7.4-10.4) 08/07/24 17:54 Neut % (Auto) 68.3 % 08/07/24 17:54 Lymph % (Auto) 22.8 % 08/07/24 17:54 [place] % (Auto) 5.8 % 08/07/24 17:54 Eos % (Auto) 1.4 % 08/07/24 17:54 Baso % (Auto) 1.4 % 08/07/24 17:54 Neut # (Auto) 6.12 10^3/uL (1.8-7.7) 08/07/24 17:54 Lymph # (Auto) 2.1 10^3/uL (0.8-4.8) 08/07/24 17:54 [place] # (Auto) 0.5 10^3/uL (0.2-0.9) 08/07/24 17:54 Eos # (Auto) 0.1 10^3/uL (0.0-0.8) 08/07/24 17:54 Baso # (Auto) 0.1 10^3/uL (0.0-0.1) 08/07/24 17:54 Nucleated RBC % (auto) 0 % 08/07/24 17:54 Nucleated RBCs # 0.0 /100WBC 08/07/24 17:54 Sodium 138 mmol/L (136-145) 08/07/24 17:54 Potassium 4.1 mmol/L (3.5-5.1) 08/07/24 17:54 Chloride 99 mmol/L (98-107) 08/07/24 17:54 Carbon Dioxide 25 mmol/L (22-29) 08/07/24 17:54 Anion Gap 18.1 (5-19) 08/07/24 17:54 BUN 15 mg/dL (6-20) 08/07/24 17:54 Creatinine 0.7 mg/dL (0.5-0.9) 08/07/24 17:54 GFR Calculation 94.2 mL/min (90-130) 08/07/24 17:54 Glucose 110 mg/dL (65-115) 08/07/24 17:54 Calculated Osmolality 287 mOsm/kg (285-295) 08/07/24 17:54 Calcium 9.4 mg/dL (8.5-10.5) 08/07/24 17:54 Total Bilirubin 0.2 mg/dL (0.15-1.2) 08/07/24 17:54 AST 26 U/L (0-32) 08/07/24 17:54 ALT 23 U/L (0-33) 08/07/24 17:54 Alkaline Phosphatase 111 U/L (35-105) H 08/07/24 17:54 Total Protein 7.1 g/dL (6.6-8.7) 08/07/24 17:54 Albumin 4.5 g/dL (3.5-5.2) 08/07/24 17:54 Globulin 2.6 g/dL (1.3-4.6) 08/07/24 17:54 Lipase 28 U/L (13-60) 08/07/24 17:54 HCG, Qual Negative (Negative) 08/07/24 17:54 Urine Color Yellow (Yellow) 08/07/24 19:39 Urine Appearance Cloudy (CLEAR) A 08/07/24 19:39 Urine pH 5.0 (5-7) 08/07/24 19:39 Ur Specific Mobile 1.030 (1.005-1.030) 08/07/24 19:39 Urine Protein Trace (Negative) A 08/07/24 19:39 Urine Glucose (UA) Negative (Normal) 08/07/24 19:39 Urine Ketones Negative (Negative) 08/07/24 19:39 Urine Blood 3+ (Negative) A 08/07/24 19:39 Urine Nitrate Negative (Negative) 08/07/24 19:39 Urine Bilirubin Negative (Negative) 08/07/24 19:39 Urine Urobilinogen 1.0 mg/dL (Negative) 08/07/24 19:39 Ur Leukocyte Esterase Trace (Negative) A 08/07/24 19:39 Urine RBC 21-50 /hpf (0-2) H 08/07/24 19:39 Urine WBC 6-10 /hpf (0-5) 08/07/24 19:39 Ur Squamous Epith Cells 11-20 /hpf (0-5) H 08/07/24 19:39 Calcium Oxalate Crystal 40-55 /hpf H 08/07/24 19:39 Amorphous Sediment Not Reportable 08/07/24 19:39 Urine Bacteria 1+ /hpf (NONE) H 08/07/24 19:39 Hyaline Casts 1.21 /lpf 08/07/24 19:39 All radiology interpretation(s) finalized by discharge Discharge Plan Discharge Patient Disposition: Home Clinical Impression: Constipation, Urinary tract infection Condition: Stable Prescriptions: New magnesium citrate Solution 296 ml PO ONCE Qty: 296 0RF polyethylene glycol 3350 [Miralax] 17 gram/dose powder 17 g PO DAILY Qty: 510 0RF Rx Instructions: Take 1-2 scoops daily for the next 3 months to keep stools soft glycerin (adult) Suppository 1 supp MD DAILY PRN (Reason: constipation) Qty: 12 0RF cephalexin 500 mg tablet 500 mg PO TID 5 Days Qty: 15 0RF No Action methadone 40 mg tablet,soluble 90 mg PO .morning hydroxyzine HCl 50 mg tablet 100 mg PO .HS PRN (Reason: insomnia) Qty: 60 2RF clomipramine 50 mg capsule 50 mg PO .HS Qty: 30 2RF venlafaxine [Effexor XR] 150 mg capsule,extended release 24hr 150 mg PO DAILY Qty: 30 2RF risperidone [Risperdal] 1 mg tablet 1 mg PO BID Qty: 60 2RF Discharge Orders: Discharge ED (Routine); Ordered 08/07/24 Ordered By: Sarah Reyes Referrals: Richard Tierney MD [Primary Care Provider, Family Practice] Discharge Diet: Usual diet Discharge Activity: Increase activity as tolerated Patient Instructions: Constipation (ED), Opioid Safety, Pain Management Activity Restrictions/Additional Instructions: Thank you for choosing [facility] for your healthcare needs today. You have been screened and evaluated and felt safe for discharge. Health conditions do change or evolve sometimes and as such it is important that you follow up with your Primary Doctor to be re checked, 3-5 days is a general good time frame for follow up. You are always welcome to return to the ED for re assessment if your symptoms are worsening or you have new concerns Print Language: Icelandic Coding Level of Care Code ED Arborer for Keren Carrillo
[2024-08-07 19:47] VITALS: BP 126/83; PULSE 96; O2SAT 93
[2024-08-07 19:50] LABS: Bilirubin Urine Negative (Negative); Blood Urine 3+ (Negative); Glucose Urine UA Negative (Normal); Ketones Urine Negative (Negative); Leukocyte Esterase Urine Trace (Negative); Nitrate Urine Negative (Negative); Protein Urine Trace (Negative); Urine Appearance Cloudy (CLEAR); Urine Color Yellow (Yellow)
[2024-08-07 19:53] LABS: Add Urine Microscopic? YES; Bacteria Urine 1+ /hpf; Hyaline Casts Urine 1.21 /lpf; RBC Urine 21-50 /hpf (0-2)
[2024-08-07 20:05] LABS: Add Urine Culture? Yes; UA Slide Review UA Slide Review Perf
[2024-08-07 20:07] LABS: Calcium Oxalate Crystals Urine 40-55 /hpf
[2024-08-07] MEDS: magnesium citrate Btl 296 mL PO (20:27)
== END 2024-08-07 20:21 | disposition home or self-care (01) ==
PROVIDERS: Emergency Medicine; Emergency Provider Emergency Medicine; PCP Family Medicine
DX: K59.00 Constipation, unspecified (principal); N39.0 Urinary tract infection, site not specified; Z72.0 Tobacco use
CPT/HCPCS: 36415; 74018; 80053; 81001; 83690; 84703; 85025; 87086; 93005; 99285; J9999

== ENCOUNTER → 2024-09-03 10:57 | Outpatient (BNVA) | payer BC, SELFPAY | PROVIDERS: PCP Family Medicine; Visit Provider Nurse Practitioner | DX: F19.10 Other psychoactive substance abuse, uncomplicated (principal); F11.20 Opioid dependence, uncomplicated; Z79.899 Other long term (current) drug therapy | CPT/HCPCS: 80061; 80306; 83036 ==

== ENCOUNTER 2024-09-11 07:45 | Emergency (ER) | payer BC, MEDICAID, SELFPAY ==
[2024-09-11 07:49] VITALS: BP 126/83; PULSE 118; RESP 14; TEMP 36.4; O2SAT 98; BMI 27.4
--- NOTE | 2024-09-11 08:16 | ED_ITS ---
HPI - General Adult 2 General: Chief complaint: General Medical Stated complaint: itchy all over, hot flashes Time Seen by Provider: 09/11/24 08:09 History of Present Illness: 38-year-old female presents to the [facility] ency room with complaints of itching and hot flashes intermittently for about a month she seen her primary care doctor had hormone levels done. She does not notice any rash she has noticed that if she takes a shower she will seem to get more itching and skin irritation but has not noticed anything should she is illnesses like a point where it initiated on her left upper arm. No vesicles no fever sweats or chills she has tried some Benadryl [id number] for which has been helpful. She states she had hormone testing done at her primary care doctor is uncertain of the results. She denies any abdominal pain or chest pain beyond her skin symptoms and her hot flashes her review of systems is negative. Associated symptoms: Deny chest pain, dyspnea or rash Related Data Home Medications ?Medication ?Instructions ?Recorded ?Confirmed methadone 40 mg soluble tablet 90 mg PO .morning 05/1009/03/24 Previous Rx's ?Medication ?Instructions ?Recorded clomipramine 50 mg capsule 50 mg PO .HS #30 caps 06/18 risperidone 1 mg tablet (Risperdal) 1 mg PO BID #60 ta bs 06/18/24 venlafaxine 150 mg 150 mg PO DAILY #30 caps capsule,extended release 24 hr (Effexor XR) glycerin (adult) 1 supp MA DAILY PRN constipa tion 08/07/24 #12 ea magnesium citrate 296 ml PO ONCE #296 mL 08/07 polyethylene glycol 3350 17 17 g PO DAILY #510 grams 0 08/07/24 gram/dose oral powder (Miralax) hydroxyzine HCl 50 mg tablet 100 mg (2 x 50 mg) PO .HS PRN 09/09/24 insomnia #60 tabs cetirizine 10 mg tablet 10 mg PO BID #60 tabs Allergies Allergy/AdvReac Type Severity Reaction Status Date / Time tramadol Allergy ADR-Seizure Verified 09/03/24 09:54 quetiapine (From Seroquel) AdvReac ADR-Anxiety Verified 09/03/24 09:54 trazodone AdvReac ADR-Shakine Verified 09/03/24 09:54 ss Review of Systems 2 Const: Denies: fever(s) or chills Card: Denies: chest pain Resp: Denies: dyspnea GI: Denies: abdominal pain : Denies: dysuria, urinary frequency or urinary urgency Musc: Denies: neck pain or back pain Skin/Breast: Denies: rash PFSH ED 2 PFSH: Medical History On combination antipsychotic drug therapy Drug abuse Acute psychosis Generalized anxiety disorder with panic attacks 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, tobacco product Long-term current use of methadone for opiate dependence Chronic post-traumatic stress disorder Psychiatric care Social History Smoking and tobacco/nicotine status: current every day tobacco/nicotine user Alcohol intake: current Substance/Drug Use: current Physical Exam 2 Const: COMMON NORMALS: no acute distress GENERAL APPEARANCE: cooperative and comfortable ORIENTATION/CONSCIOUSNESS: Yes awake, Yes oriented to person, Yes oriented to place and Yes oriented to time HENMT: COMMON NORMALS: normocephalic, atraumatic and hearing grossly normal bilaterally HEAD & SCALP: normocephalic and atraumatic Resp: COMMON NORMALS: normal respiratory effort, No retractions, No use of accessory muscles and clear to auscultation bilaterally AUSCULTATION: clear to auscultation bilaterally Cardio: COMMON NORMALS: regular rate, regular rhythm and No murmurs present (Cardio) RATE: regular rate RHYTHM: regular rhythm GI: COMMON NORMALS: Soft to palpation and No hepatosplenomegaly present A USCULTATION: Yes normoactive bowel sounds PALPATION: Yes Soft to palpation, No Tenderness to palpation present (GI), No Guarding due to palpation present (GI) and Yes No hepatosplenomegaly present Extremity: COMMON NORMALS: normal to inspection, capillary refill normal, no clubbing, cyanosis or edema, no calf tenderness and no pedal edema Neuro: SENSORIUM/ORIENTATION: Yes oriented to person, Yes oriented to place and Yes oriented to time Skin: COMMON NORMALS: no rashes or lesions noted GENERAL SKIN EXAM: no rashes or lesions noted Course 2 Vital Signs: Vital signs: Vital Signs Temperature 97.5 F L 09/11/24 07:49 Pulse Rate 100 09/11/24 09:03 Respiratory Rate 14 09/11/24 07:49 Blood Pressure 110/82 09/11/24 09:03 Pulse Oximetry 99 09/11/24 09:03 Oxygen Delivery Me thod Room Air 09/11/24 07:49 MDM - General Adult Medical Decision Making No emergent findings no findings of rash. Could be from her methadone it is causing the itching sensation. Will discharge patient home for follow-up with her primary care doctor if they can refer to dermatology if they feels appropriate recommend that instead of Benadryl she do cetirizine 10 mg twice a day. Medical Records I reviewed the patient's medical records. Lab Data I reviewed the patient's lab results. 09/11/24 07:57 09/11/24 07:57 Laboratory Results WBC 9.03 10^3/uL (3.29-11.43) 09/11/24 07:57 RBC 5.39 10^6/uL (3.85-5.65) 09/11/24 07:57 Hgb 15.00 g/dL (11.27-16.99) 09/11/24 07:57 Hct 45.3 % (36-47) 09/11/24 07:57 MCV 84.0 fl (85-98) L 09/11/24 07:57 MCH 27.8 pg (27-33) 09/11/24 07:57 MCHC 33.1 g/dL (30-55) 09/11/24 07:57 RDW 12.1 % (12.1-15.1) 09/11/24 07:57 Plt Count 381 10^3/cmm (157-399) 09/11/24 07:57 MPV 9.2 fL (7.4-10.4) 09/11/24 07:57 Neut % (Auto) 57.4 % 09/11/24 07:57 Lymph % (Auto) 30.7 % 09/11/24 07:57 [place] % (Auto) 5.9 % 09/11/24 07:57 Eos % (Auto) 4.1 % 09/11/24 07:57 Baso % (Auto) 1.3 % 09/11/24 07:57 Neut # (Auto) 5.19 10^3/uL (1.8-7.7) 09/11/24 07:57 Lymph # (Auto) 2.8 10^3/uL (0.8-4.8) 09/11/24 07:57 [place] # (Auto) 0.5 10^3/uL (0.2-0.9) 09/11/24 07:57 Eos # (Auto) 0.4 10^3/uL (0.0-0.8) 09/11/24 07:57 Baso # (Auto) 0.1 10^3/uL (0.0-0.1) 09/11/24 07:57 Nucleated RBC % (auto) 0 % 09/11/24 07:57 Nucleated RBCs # 0.0 /100WBC 09/11/24 07:57 Sodium 140 mmol/L (136-145) 09/11/24 07:57 Potassium 3.8 mmol/L (3.5-5.1) 09/11/24 07:57 Chloride 100 mmol/L (98-107) 09/11/24 07:57 Carbon Dioxide 26 mmol/L (22-29) 09/11/24 07:57 Anion Gap 17.8 (5-19) 09/11/24 07:57 BUN 14 mg/dL (6-20) 09/11/24 07:57 Creatinine 0.8 mg/dL (0.5-0.9) 09/11/24 07:57 GFR Calculation 80.7 mL/min (90-130) L 09/11/24 07:57 Glucose 114 mg/dL (65-115) 09/11/24 07:57 Calculated Osmolality 291 mOsm/kg (285-295) 09/11/24 07:57 Calcium 9.4 mg/dL (8.5-10.5) 09/11/24 07:57 Total Bilirubin 0.2 mg/dL (0.15-1.2) 09/11/24 07:57 AST 32 U/L (0-32) 09/11/24 07:57 ALT 42 U/L (0-33) H 09/11/24 07:57 Alkaline Phosphatase 143 U/L (35-105) H 09/11/24 07:57 Total Protein 7.5 g/dL (6.6-8.7) 09/11/24 07:57 Albumin 4.6 g/dL (3.5-5.2) 09/11/24 07:57 Globulin 2.9 g/dL (1.3-4.6) 09/11/24 07:57 No radiology studies performed this visit Discharge Plan Discharge Patient Disposition: Home Clinical Impression: Pruritic dermatitis Condition: Stable Prescriptions: New cetirizine 10 mg tablet 10 mg PO BID Qty: 60 0RF No Action methadone 40 mg tablet,soluble 90 mg PO .morning clomipramine 50 mg capsule 50 mg PO .HS Qty: 30 2RF venlafaxine [Effexor XR] 150 mg capsule,extended release 24hr 150 mg PO DAILY Qty: 30 2RF risperidone [Risperdal] 1 mg tablet 1 mg PO BID Qty: 60 2RF hydroxyzine HCl 50 mg tablet 100 mg PO .HS PRN (Reason: insomnia) Qty: 60 2RF magnesium citrate Solution 296 ml PO ONCE Qty: 296 0RF polyethylene glycol 3350 [Miralax] 17 gram/dose powder 17 g PO DAILY Qty: 510 0RF Rx Instructions: Take 1-2 scoops daily for the next 3 months to keep stools soft glycerin (adult) Suppository 1 supp MA DAILY PRN (Reason: constipation) Qty: 12 0RF Discharge Orders: Discharge ED (Routine); Ordered 09/11/24 Ordered By: Dawit Miller Referrals: Richard Tierney MD [Primary Care Provider, Family Practice] Discharge Diet: Usual diet Discharge Activity: Resume usual activity Patient Instructions: Opioid Safety, Pain Management Activity Restrictions/Additional Instructions: Thank you for choosing [facility] for your healthcare needs today. It is very important that you follow up as instructed or that you return to the Emergency Department should you have concerns or if your condition changes or worsens in any way. You were seen emergency room with complaints of generalized itching. He had no rash at the time that was seen. 1 medication that could contribute to this problem would be the methadone. Follow-up with your primary care doctor if your symptoms are persisting we can refer you to dermatology if it is felt appropriate Print Language: Slovak Coding Level of Care Code ED [employer] for Keren Carrillo
[2024-09-11 08:24] LABS: Basophils # 0.1 10^3/uL (0.0-0.1); Basophils % 1.3 %; Eosinophils # 0.4 10^3/uL (0.0-0.8); Eosinophils % 4.1 %; Hematocrit 45.3 % (36-47); Lymphocytes # 2.8 10^3/uL (0.8-4.8); Lymphocytes % 30.7 %; Mean Corpuscular HGB Conc 33.1 g/dL (30-55); Mean Corpuscular Hemoglobin 27.8 pg (27-33); Mean Platelet Volume 9.2 fL (7.4-10.4); Monocytes # 0.5 10^3/uL (0.2-0.9); Monocytes % 5.9 %; Neutrophils # 5.19 10^3/uL (1.8-7.7); Neutrophils % 57.4 %; Nucleated Red Blood Cells % 0 %; Platelet Count 381 10^3/cmm (157-399); Red Blood Count 5.39 10^6/uL (3.85-5.65); Red Cell Distribution Width 12.1 % (12.1-15.1); White Blood Count 9.03 10^3/uL (3.29-11.43)
[2024-09-11 08:28] LABS: Alanine Aminotransferase 42 U/L (0-33); Albumin Level 4.6 g/dL (3.5-5.2); Alkaline Phosphatase 143 U/L (35-105); Anion Gap 17.8 (5-19); Aspartate Amino Transferase 32 U/L (0-32); Blood Urea Nitrogen 14 mg/dL (6-20); Calcium 9.4 mg/dL (8.5-10.5); Carbon Dioxide 26 mmol/L (22-29); Chloride 100 mmol/L (98-107); Creatinine Clr Calc Pharmacy 97.4863; Globulin 2.9 g/dL (1.3-4.6); Glomerular Filtration Rate 80.7 mL/min (90-130); Glucose 114 mg/dL (65-115); Osmolality Calculated 291 mOsm/kg (285-295); Potassium 3.8 mmol/L (3.5-5.1); Sodium 140 mmol/L (136-145); Total Bilirubin 0.2 mg/dL (0.15-1.2); Total Protein 7.5 g/dL (6.6-8.7)
[2024-09-11 09:03] VITALS: BP 110/82; PULSE 100; O2SAT 99
== END 2024-09-11 09:04 | disposition home or self-care (01) ==
PROVIDERS: Emergency Provider Family Medicine; PCP Family Medicine
DX: L29.89 Other pruritus (principal); Z72.0 Tobacco use
CPT/HCPCS: 80053; 85025; 99283

== ENCOUNTER 2024-11-19 10:09 | Outpatient (CLI) | payer BC, MEDICAID, SELFPAY ==
[2024-11-19 11:45] LABS: Hematocrit 42.3 % (36-47); Hemoglobin 13.70 g/dL (11.27-16.99); Mean Corpuscular HGB Conc 32.4 g/dL (30-55); Mean Corpuscular Hemoglobin 27.4 pg (27-33); Mean Corpuscular Volume 84.6 fl (85-98); Nucleated Red Blood Cells % 0 %; Platelet Count 359 10^3/cmm (157-399); Red Blood Count 5.00 10^6/uL (3.85-5.65); White Blood Count 6.87 10^3/uL (3.29-11.43)
[2024-11-19 12:27] LABS: Alanine Aminotransferase 39 U/L (0-33); Albumin Level 4.4 g/dL (3.5-5.2); Alkaline Phosphatase 146 U/L (35-105); Anion Gap 12.1 (5-19); Aspartate Amino Transferase 51 U/L (0-32); Blood Urea Nitrogen 8 mg/dL (6-20); Calcium 9.4 mg/dL (8.5-10.5); Carbon Dioxide 30 mmol/L (22-29); Chloride 103 mmol/L (98-107); Free T4 Free Thyroxine 0.92 ng/dL (0.82-1.77); Globulin 2.5 g/dL (1.3-4.6); Glucose 83 mg/dL (65-115); Osmolality Calculated 289 mOsm/kg (285-295); Potassium 4.1 mmol/L (3.5-5.1); Sodium 141 mmol/L (136-145); Thyroid Stimulating Hormone 1.60 uIU/mL (0.27-4.20); Total Protein 6.9 g/dL (6.6-8.7)
== END 2024-11-19 10:10 | disposition home or self-care (01) ==
PROVIDERS: PCP Family Medicine; Visit Provider Dermatology
DX: L30.9 Dermatitis, unspecified (principal)
CPT/HCPCS: 36415; 80053; 84439; 84443; 85025

== ENCOUNTER 2024-12-31 13:14 | Emergency (ER) | payer BC, MEDICAID, SELFPAY ==
--- OUTSIDE RECORDS SUMMARY | 2024-12-31 13:20 | XMS_ITS | Data Portability ---
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 The patient experiences symptomatic relief with current interventions but seeks a consistent management plan to ensure regular bowel movements. Interested to explore Varenicline for potential use in her regimen. [email or web address] Not available 12/30/2024 09:49:22 Plan of Treatment Reminders Order Date Submit Date Provider Last Modified By Organization Details Last Modified Time Details Appointments None recorded. Lab None recorded. Referral dermatologi st referral 2024 025 [email or web address] 2 [facility], [address] [place], [address], 13:32:09 Procedures None recorded. Surgeries None recorded. Imaging None recorded. Medication Orders omeprazole 20 mg capsule,del ayed release 2024 025 [facility]armacy #[id number], [address], [place], [address], 09:49:55 Zepbound 2.5 mg/0.5 mL subcutaneou s pen injector 2024 025 [facility]/Pharmacy #[id number], [address], [place], [address], 09:35:12 Medrol (Elias) 4 mg tablets in a dose pack 2024 025 [facility]/Pharmacy #[id number], [address], [address], [place], [address], 09:37:19 Chantix Starting Month Box 0.5 mg (11)-1 mg (42) tablets in dose pack 2024 025 [id number], [address], [address], [place], [address], 12:54:47 Patient TargetsNo targets recorded. Patient Instructions Encounter Date Encounter Id Patient Instructions Last Modified By Organization Details Last Modified Time 08/14/2024 [id number] smoking cessatio n counseling, greater than 3 minutes up to 10 minutes* [email or web address] Not available 08/29/2024 10:50:25 12/27/2024 [id number] We discussed magnesium citrate 1/2 bottle ( wait 8 hours) followed by at least 8 oz water and if no results in 8 hours repeat. I would like her also to try a Fleet's enema to get lower GI tract as well. We also discussed MOM and Prune juice 30mL each warmed and mixed as a maintenance. If no results in 24 hours may need ER as next step. Discuss med with PCP for chronic constipation with methadone use with PCP Not available 12/27/2024 12:13:29 GI exam was not abnormal so I chose not to do an x-ray/. Not available 12/27/2024 12:09:38 12/30/2024 [id number] - Take MiraLax daily to manage chronic constipation effectively. - Drink plenty of water to assist MiraLax function. - Include more high-fiber fruits and vegetables in your diet. - Use Magnesium Citrate with prunes as needed for constipation relief. - Monitor how you respond to changes and report any issues. - Inform if any severe symptoms or side effects occur. [email or web address] Not available 12/30/2024 09:51:54 During the visit , I discussed the challenges of managing chronic constipation and proposed maintaining consistent use of MiraLax as a safe, daily option, in addition to dietary modifications rich in fiber. I discussed the currently effective combination of Magnesium Citrate and prunes for symptomatic relief. We explored the possibility of integrating Varenicline for its potential benefits in managing bowel movements regularly. The patients were advised about the necessity of hydration when taking these agents and instructed on dietary changes to enhance effects. We acknowledged the role of medication adherence and adjustments to lifestyle for broader health benefits. 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 ruritic disorder of skin Referring Physician: Radha Tierney, Family Medicine, Encounter Date: 09/24/2024 Problems Name Problem SNOMED Code Status Onset Date Resolution Date Notes Provider Name and Address Organization Details Recorded Time Heart murmur 43070849 Active 2021 HEART MURMUR; 11/27/19 1:11PM by Alda Grey, Office Visit; Promoted ; acuity set as *; Lisandra rome [facility]enna 5 10:01:09 Dysplasti c nevus of skin 695053271 Active 2023 Lisandra rome [facility]CM[facility]enna 5 10:00:43 History of substance abuse 655920352 Active 2023 Lisandra rome [facility], LMckennaL.CMckenna 5 10:01:33 Insomnia 178771053 Active 2023 TAIWO rome [facility], JorgeLMckennaCMckenna 4 08:54:52 Loss of hair 322645266 Completed 202306/13/2024 Lisandra rome [facility], JorgeLMckennaCMckenna 5 10:01:49 Anxiety 65309476 Active 2023 TAIWO rome [facility] 4 08:55:13 Menopausa l symptom 65979282 Active 2023 Lisandra Jere rome, [facility] 5 10:01:58 Fatigue 90112955 Active 2023 Lisandra Jere latricia, [facility] 5 10:00:52 Secondary amenorrhe a 939219341 Active 2023 Lisandra rome, [facility] 5 10:02:03 Amenorrhe a 22058950 Completed 202306/13/2024 Lisandra Oquendo latricia, [facility] 09:59:49 Schizophr enia 42569680 Active 2024 ALDA rome, [facility] 11:50:33 External hemorrhoi ds 31344739 Active 2024 Radha Tierney MD [address] [place] [address], [phone], [facility] 15:39:38 Pruritic disorder of skin Active 2024 Radha Tierney MD [address] [place] [phone], [facility] 16:11:51 Gastroeso phageal reflux disease without esophagit is 838195430 Active 2024 Radha Tierney MD [address] [place] [phone], [facility] 09:49:32 Body mass index 30+ - obesity 415059448 Active 2024 Radha Tierney MD [address] [place] [phone], [facility] 09:51:39 Chronic constipat ion 815960424 Active 2024 Radha Tierney MD [address] [place] [address], [phone], [facility] 09:44:19 Problem Notes None recorded. Procedures Surgical History Date Name Laterality Status Provider Name and Address Organization Details Recorded Time 04/14/19 24 jr punch biopsy completed Radha Tierney MD [address] [place] [address], [phone], [facility] 04/16/2023 08:26:16 tonsillectomy completed [facility] 06/14/2024 11:05:01 extraction of wisdom tooth completed [facility] 06/14/2024 11:05:10 section completed [facility] 06/14/2024 11:05:24 Imaging Results None recorded. Procedure Notes None recorded. Medical Equipment None Reported. Allergies Allergen ID Allergen Name Allergen Category Reaction Reaction Severity Criticality Documentation Date Start Date Code Code System Note Provider Name and Address Organization Details Recorded Time 70974 tramadol- dietary supp. no.11 medicatio n Not available Not available Not available 10/22/2022 Comme nt: Recor ded 11/26 1:11P M by There sa Grey Offic e Visit ; Misty cowan; Davey campos ce: *; Reaso n: Drug aller gy; ; Not Available [facility] 3 02:28:31 Medications Name Sig Start Date Stop Date Status Note LastModified by Organization Details LastModified Time venlafaxi ne ER 75 mg capsule,e xtended release 24 hr TAKE 1 CAPSULE BY MOUTH EVERY DAY 06/14 completed Not Available Not Available Not Available cetirizin e 10 mg tablet TAKE 1 TABLET BY MOUTH TWICE A DAY (OTC NOT COVERED) active Not Available Not Available No t Available Medrol (Elias) 4 mg tablets in a dose pack Take 1 dose pk every day by oral route as directed . 11/13 completed Not Available Not Available Not Available venlafaxi ne ER 150 mg capsule,e xtended release 24 hr TAKE 1 CAPSULE BY MOUTH DAILY 12/30 completed Not Available Not Available Not Available hydroxyzi ne HCl 50 mg tablet TAKE 2 TABLETS BY MOUTH AT BEDTIME NEEDED FOR INSOMNIA active Not Available Not Available No t Available propranol ol 10 mg tablet TAKE 1 TABLET BY MOUTH TWICE A DAY NEEDED FOR ANXIETY 02/18 completed Not Available Not Available Not Available nystatin 100,000 unit/gram topical cream APPLY TOPICALL Y TO THE AFFECTED AREA TWICE DAILY FOR 7 DAYS 04/14 completed Not Available Not Available Not Available buspirone 10 mg tablet TAKE 1 TABLET BY MOUTH TWICE A DAY EVERY MORNING AND EVENING FOR ANXIETY 02/18 completed Not Available Not Available Not Available docusate sodium 100 mg capsule TAKE ONE CAPSULE BY MOUTH at bedtime for 30 DAYS 02/18 completed Not Available Not Available Not Available omeprazol e 20 mg capsule,d elayed release TAKE 1 CAPSULE BY MOUTH EVERY DAY active Not Available Not Available No t Available hydroxyzi ne HCl 25 mg tablet TAKE 1 TABLET BY MOUTH EVERY 8 HOURS NEEDED FOR ANXIETY 02/18 completed Not Available Not Available Not Available clomipram ine 50 mg capsule TAKE 1 CAPSULE BY MOUTH EVERYDAY AT BEDTIME active Not Available Not Available No t Available polyethyl rolf glycol 3350 17 gram/dose oral powder TAKE 1-2 CAPFULS MIXED IN LIQUID DAILY FOR THE NEXT 3 MONTHS TO KEEP STOOLS SOFT active Not Available Not Available No t Available risperido ne 1 mg tablet TAKE 1 TABLET (1 MG) ORALLY TWICE A DAY. active Not Available Not Available No t Available lamotrigi ne 100 mg tablet TAKE 1 TABLET BY MOUTH EVERY DAY 04/14 completed Not Available Not Available Not Available Denta 5000 Plus 1.1 % cream BRUSH TEETH WITH PEA SIZED AMOUNT OF TOOTHPAS TE FOR 2 MIN. SPIT EXCESS, DO NOT RENSE 06/14 completed Not Available Not Available Not Available aripipraz ole 10 mg tablet TAKE 1 TABLET BY MOUTH EVERY MORNING 06/14 completed Not Available Not Available Not Available atomoxeti ne 40 mg capsule TAKE 1 CAPSULE BY MOUTH EVERY DAY 12/27 completed Not Available Not Available Not Available atomoxeti ne 60 mg capsule TAKE 1 CAPSULE BY MOUTH EVERY DAY active Not Available Not Available No t Available nitrofura ntoin monohydra te/macroc rystals 100 mg capsule 04/14 completed Not Available Not Available Not Available methadone daily active 0; Recorded 11/27/19 22 1:12PM by Alda Grey, Office Visit; Not Available Not Available Not Available hydroxyzi ne HCl at bedtime 04/14 completed Recorded 11/27/19 22 1:38PM by Radha Tierney MD, Office Visit; Refill Quantity : 30; Tablet; Not Available Not Available Not Available varenicli ne tartrate 0.5 mg (11)-1 mg (42) tablets in a dose pack TAKE 1 STARTR PK EVERY DAY BY ORAL ROUTE DIRECTED . active Not Available Not Available No t Available paliperid one ER 6 mg tablet,ex tended release 24 hr TAKE 1 TABLET BY MOUTH EVERY DAY AT 9PM 02/18 completed Not Available Not Available Not Available paliperid one ER 3 mg tablet,ex tended release 24 hr TAKE 1 TABLET BY MOUTH EVERY DAY AT 10AM 02/18 completed Not Available Not Available Not Available Vraylar 3 mg capsule TAKE 1 CAPSULE BY MOUTH EVERY DAY IN THE MORNING 04/14 completed Not Available Not Available Not Available Zepbound 5 mg/0.5 mL subcutane ous pen injector INJECT 0.5 ML SUBCUTAN EOUSLY EVERY WEEK active Not Available Not Available No t Available Zepbound 2.5 mg/0.5 mL subcutane ous pen injector INJECT 2.5 MG BY SUBCUTAN EOUS ROUTE ONCE WEEKLY 12/09 completed Not Available Not Available Not Available Vitals Date Recorded Body height Body mass index (BMI) Body weight Body temperature Oxygen saturation Oxygen saturation in Arterial blood by Pulse oximetry Heart rate Systolic And Diastolic Provider Name and Address Organization Details Last Updated DateTime 162.56 cm 27.8 kg/m2 59325.9 6 g 97.7 [degF] 98 % 98 % 124 /min 118/78 mm[Hg] [facility] 5 12:31:08 Date Recorded Body height Body mass index (BMI) Body weight Oxygen saturation Oxygen saturation in Arterial blood by Pulse oximetry Heart rate Body temperature Systolic And Diastolic Provider Name and Address Organization Details Last Updated DateTime 5 162.56 cm 29.7 kg/m2 47644.8 8 g 98 % 98 % 84 /min 98.4 [degF] 126/90 mm[Hg] Ariella Sahu [facility] L.LMckennaCMckenna 5 15:37:52 Date Recorded Body height Body mass index (BMI) Body weight Body temperature Oxygen saturation Oxygen saturation in Arterial blood by Pulse oximetry Heart rate Systolic And Diastolic Provider Name and Address Organization Details Last Updated DateTime 5 162.56 cm 30.9 kg/m2 04798.6 3 g 98.1 [degF] 99 % 99 % 94 /min 108/74 mm[Hg] [facility], LMckennaLMckennaCMckenna 5 09:34:21 Date Recorded Body height Body mass index (BMI) Body weight Oxygen saturation Oxygen saturation in Arterial blood by Pulse oximetry Heart rate Respiratory rate Body temperature Systolic And Diastolic Provider Name and Address Organization Details Last Updated DateTime 5 162.56 cm 28.5 kg/m2 67314.3 3 g 98 % 98 % 86 /min 16 /min 98.2 [degF] 126/66 mm[Hg] Silvia Turner [facility] 5 11:38:07 Date Recorded Body height Body mass index (BMI) Body weight Body temperature Oxygen saturation Oxygen saturation in Arterial blood by Pulse oximetry Heart rate Systolic And Diastolic Provider Name and Address Organization Details Last Updated DateTime 5 162.56 cm 28.7 kg/m2 36057.9 3 g 97.6 [degF] 99 % 99 % 94 /min 110/72 mm[Hg] [facility] 5 09:29:17 Social History Question Answer Notes LastModified by Organizat ion Details LastModified Time Tobacco Smoking Status Current Every Day Smoker Vape [facility] 12/30/2024 09:37:11 What Is Your Level Of Caffeine Consumption? Moderate [email or web address] Information not available 06/14/2024 Which Illicit Or Recreational Drugs Have You Used? Marijuana Information not available 06/14/2024 What Was The Date Of Your Most Recent Tobacco Screening? 12/30/2024 [email or web address] Information not available 12/30/2024 How Much Tobacco Do You Smoke? 0.25 PPD [email or web address] Information not available 12/30/2024 Sex: Unknown Functional Status Question Answer Note LastModified by Organizat ion Details LastModified Time Do you use any illicit or recreational drugs? No [email or web address] Information not available 11/13/2024 What is your level of alcohol consumption? None [email or web address] Information not available 06/14/2024 Mental Status None recorded. Family History Relationship Description Onset Age of this Age Resolved Age Notes LastModified by Organization Details LastModified Time Mother Heart disease [email or web address] Not available 2024 11:02:36 Maternal Grandfather Malignant neoplastic disease [email or web address] Not available 2024 11:03:02 Maternal Grandmother Malignant neoplastic disease [email or web address] Not available 2024 11:03:02 Paternal Grandfather Malignant neoplastic disease [email or web address] Not available 2024 11:03:02 Paternal Grandfather Cerebrovascu lar accident [email or web address] Not available 11:03:27 Paternal Grandmother Malignant neoplastic disease [email or web address] Not available 2024 11:03:02 Medical History No medical history recorded. Gynecological History Statement/Question Response Abnormal Pap N Date of Last Pap Smear Date of LMP 09/25/2023 Obstetrics History GPAL:G 4 P 3 0 1 3 Type Value Multiple Births 0 Full Term 3 Induced 0 Spontaneous 1 Premature 0 Living 3 Ectopics 0 Total 4 Past Encounters Encounter ID Performer Location Encounter Start Date Encounter Closed Date Diagnosis/Indication Diagnosis SNOMED-CT Code Diagnosis ICD10 Code Diagnosis IMO Codes Diagnosis Note [id number] Radha Tierney MD [facility] ([facility]) [address] [place] [address] 04/14/2023 10:23:21 04/14/2023 12:40:48 Dysplastic nevus of skin 524768074 D22.9 Likely benign lesion, however will obtain punch biopsy to confirm this especially given the changes in size and coloration . [id number] Yuliana Morocho MD [facility] ([facility]) [address] [place] [phone] 05/23/2023 16:37:27 06/03/2023 21:47:50 Gynecologic examination 53705733 Z01.801 [id number] Radha Tierney MD [facility] ([facility]) [address] [place] [phone] 02/19/2024 15:00:03 02/19/2024 15:50:00 Menopausal symptom 24353610 N95.1 Will check FSH and see if she is perimenopa usal. The patient is younger than expected for these symptoms. Fatigue 03357221 R53.83 Will include TSH as part of his evaluation . [id number] Radha Tierney MD [facility] ([facility]) [address] [place] [phone] 02/28/2024 15:18:31 02/29/2024 12:34:59 [id number] Radha Tierney MD [facility] ([facility]) [address] [place] [phone] 06/14/2024 10:53:18 06/14/2024 11:51:51 Fatigue 59526911 R53.83 Check TSH Schizophrenia 31898325 F 20.9 Will also check routine labs to ensure there is no organic abnormalit y contributi ng to the patient's mental health. Recommend she discuss the symptoms with her psychiatri st. Patient intends to try to do the walk-in at [facility]. History of substance abuse 875104835 F19.21 Recommend discussing weaning off methadone with [facility] [id number] Radha Tierney MD [facility] ([facility]) [address] [place] [phone] 08/14/2024 12:21:28 08/14/2024 14:32:05 Finding of tobacco use and exposure 309341374 Z72.0 [id number] Counseled the patient on smoking sensation. Discussed options for treatment and the patient opted to proceed with Chantix. External hemorrhoids 239 37653 K64.4 52200 Based on patient's descriptio n and the fact that it is getting smaller, this is most likely a hemorrhoid . Patient declined exam today and will continue conservati ve treatment and treatment for hemorrhoid s and follow-up if symptoms do not improve. [id number] Radha Tierney MD [facility] ([facility]) [address] [place] [phone] 09/24/2024 15:26:13 09/24/2024 16:37:31 Pruritic disorder of skin 1375263669 L29.9 06670 Unsure the cause of the pruritus. Will do a Medrol Dosepak and see if this improves the itch in the meantime and we will send referral to dermatolog y to get some additional evaluation and insight. [id number] Radha Tierney MD [facility] ([facility]) [address] [place] [phone] 11/13/2024 09:30:16 11/13/2024 10:31:24 Gastroesophageal reflux disease without esophagitis 104784529 K21.9 179768 Will start omeprazole to help with the reflux symptoms. Body mass index 30+ - obesity 740065597 E66.9 1240949 We will attempt to see if her insurance will cover a GLP-1 to help her lose weight. There may be a component of metabolic syndrome that is likely contributi ng to weight gain. GLP-1 would be helpful for her. [id number] JANE ARENAS APRN [facility] ([facility]) [address] [place] [phone] 12/27/2024 11:23:59 12/27/2024 12:16:07 Chronic constipation 477220593 K59.09 152949 [id number] Radha Tierney MD [facility] ([facility]) [address] [place] [phone] 12/30/2024 09:22:14 12/30/2024 09:56:05 Chronic constipation 380402755 K59.09 073534 - Magnesium Citrate and prunes were effective to alleviate symptoms.- Daily MiraLax recommende d; emphasize the importance of daily intake and adequate hydration. - Encourage dietary modificati ons focusing on high fiber for symptom management . Health Concerns Section Related Observation LastModified by Organization Detai ls LastModified Time None Recorded Concern Status LastModified by Organization Details LastModified Time None Recorded Advance Directives Directive None Recorded Payers Insurance Date Sequence Insurance Name Policy Number Policy Spence Covered Member ID Spence Member ID Guarantor Name 12/27/2024 1 [employer] [place] (MEDICA[place] REPLACEMENT - HMO) [id number] Barbara Poe [id number] Barbara Poe Notes Date Note Type Note Provider Name and Address Organization Details Recorded Time 5 text/html Skin LesionReported by PatientHPIFor location, patient reportsbuttock. For severity, (has shrunk in size). This is a 38-year-old female that presents today to discuss a few concerns. She has a wart or skin tag near the rectum. She reports that it was larger previously but has shrunk in size now. It is mildly tender. Patient is also interested in starting medication to help quit smoking. Radha Tierney MD [address] [place] [address], [phone], [facility] 08/19/2024 15:42:19 5 text/html walk inx1 month ago, generalized itching after sweating, or shower. States feels deep not surface itch. Reports no new triggers. Was seen in ED for same x 1 week ago gave zyrtec pt reports without help the patient has been taking the Zyrtec twice daily. Radha Tierney MD [address] [place] [address], [phone], [facility] 09/26/2024 11:14:09 5 text/html Pt is here to discuss her trouble with losing weight and heart burnShe has stopped eating junk food, and the patient states that she has been doing better about food choices and trying to exercise daily.She continues to gain weight Radha Tierney MD [address] [place] [address], [phone], [facility] 11/16/2024 22:24:32 5 text/html ConstipationReported by Patient walk in patientpatient is here today for constipation, patient has not had a bowel movement in 3-4 weeks, patient is on zepbound and taking miralax and OTC laxative and nothing is helping. She is also on methadone. JANE ARENAS APRN [address] [place], [phone], [facility] LGemma. 12/27/2024 12:14:37 5 text/html The patient is a 39-year-old female presenting for chronic constipation management. She was seen [facility] on Monday due to severe constipation and was advised to use Magnesium Citrate along with prunes, which effectively led to a bowel movement. She seeks guidance on a safe daily routine to manage constipation and mentioned a previous attempt to use MiraLax daily, albeit inconsistently. Radha Tierney MD [address] [place], [phone], [facility]. 12/30/2024 09:52:06 OBGyn Episode No OBEpisode recorded.
--- OUTSIDE RECORDS SUMMARY | 2024-12-31 13:21 | XMS_ITS | Continuity of Care Document ---
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 Lab None record ed. Referral None record ed. Procedures None record ed. Surgeries None record ed. Imaging None record ed. Medication Orders None record ed. Patient TargetsNo targets recorded. Patient Instructions Encounter Date Encounter Id Patient Instructions Last Modified By Organization Details Last Modified Time 12/30/2024 [id number] - Take MiraLax daily to manage chronic [...] Not available 12/30/2024 09:49:24 Reason for Referral None Reported. Problems Name Problem SNOMED Code Status Onset Date Resolution Date Notes Provider Name and Address Organization Details Recorded Time Heart murmur 06987964 Active 2021 HEART MURMUR; 11/27/19 1:11PM by Alda Grey, Office Visit; Promoted ; acuity set as *; Lisandra rome [facility] 5 10:01:09 Dysplasti c nevus of skin 875019075 Active 2023 Lisandra rome [facility] 5 10:00:43 History of substance abuse 835321562 Active 2023 Lisandra rome [facility] 5 10:01:33 Insomnia 676724090 Active 2023 TAIWO rome [facility] 4 08:54:52 Loss of hair 157833722 Completed 202306/13/2024 Lisandra rome [facility] 5 10:01:49 Anxiety 34073107 Active 2023 TAIWO rome [facility] 4 08:55:13 Menopausa l symptom 08599055 Active 2023 Lisandra rome [facility] 5 10:01:58 Fatigue 60673590 Active 2023 Lisandra rome [facility] 10:00:52 Secondary amenorrhe a 624019399 Active 2023 Lisandrayajaira rome, [facility] 10:02:03 Amenorrhe a 68811604 Completed 202306/13/2024 Lisandra rome, [facility] 09:59:49 Schizophr enia 17116868 Active 2024 ALDA rome, [facility] 11:50:33 External hemorrhoi ds 85761405 Active 2024 Radha Tierney MD [address] [place] [address], [phone] 5, [facility] 15:39:38 Pruritic disorder of skin Active 2024 Radha Tierney MD [address] [place] [address], [phone] 5, [facility] 16:11:51 Gastroeso phageal reflux disease without esophagit is 489196002 Active 2024 Radha Tierney MD [address] [place] [address], [phone] 5, [facility] 09:49:32 Body mass index 30+ - obesity 432770363 Active 2024 Radha Tierney MD [address] [place] [address], [phone] 5, [facility] 09:51:39 Chronic constipat ion 271458322 Active 2024 Radha Tierney MD [address] [place] [address], [phone] 5, [facility] 10/06/202 5 09:44:19 Problem Notes None recorded. Procedures Surgical History Date Name Laterality Status Provider Name and Address Organization Details Recorded Time 04/14/19 24 jr punch biopsy completed Radha Tierney MD [address] [place] [address], [phone], [facility], [place] 04/16/2023 08:26:16 tonsillectomy completed [facility], [place] 06/14/2024 11:05:01 extraction of wisdom tooth completed [facility], [place] 06/14/2024 11:05:10 [facility] 11:05:24 Imaging Results None recorded. Procedure Notes None recorded. Medical Equipment None Reported. Allergies Allergen ID Allergen Name Allergen Category Reaction Reaction Severity Criticality Documentation Date Start Date Code Code System Note Provider Name and Address Organization Details Recorded Time 25577 tramadol- dietary supp. no.11 medicatio n Not available Not available Not available 10/22/2022 Comme nt: Recor ded 11/26 1:11P M by There Johan Ybarra e Visit ; Misty cowan; Davey campos ce: *; Reaso n: Drug aller gy; ; Not Available [facility] 3 02:28:31 Medications Name Sig Start Date [...] HCl at bedtime 04/14 completed Recorded 11/27/19 1:38PM by Radha Tierney MD, Office Visit; [...] Organization Details Last Updated DateTime 162.56 cm 28.7 kg/m2 77096.9 3 g 97.6 [degF] 99 % 99 % 94 /min 110/72 mm[Hg] [facility] 09:29:17 Social History Question Answer Notes LastModified by Organizat ion Details LastModified Time Tobacco Smoking Status Current Every Day Smoker Vape [facility] 12/30/2024 09:37:11 What Is Your Level Of Caffeine Consumption? Moderate [email or web address] Information not available 06/14/2024 Which Illicit Or Recreational Drugs Have You Used? Marijuana [email or web address] Information not available 06/14/2024 What Was The Date Of Your Most Recent Tobacco Screening? 12/30/2024 [email or web address] Information not available 12/30/2024 How Much Tobacco Do You Smoke? 0.25 PPD Information not available 12/30/2024 Sex: Unknown Functional Status Question Answer Note LastModified by Organizat ion Details LastModified Time Do you use any illicit or recreational drugs? No [email or web address] Information not available 11/13/2024 What is your level of alcohol consumption? None [email or web address] Information not available 06/14/2024 Mental Status None recorded. Family History Relationship Description Onset Age of this Age Resolved Age Notes LastModified by Organization Details LastModified Time Mother Heart disease [email or web address] Not available 2024 11:02:36 Maternal Grandfather Malignant neoplastic disease Not available 2024 11:03:02 Maternal Grandmother Malignant neoplastic disease [email or web address] Not available 2024 11:03:02 Paternal Grandfather Malignant neoplastic disease [email or web address] Not available 2024 11:03:02 Paternal Grandfather Cerebrovascu lar accident Not available 11:03:27 Paternal Grandmother Malignant neoplastic disease Not available 2024 11:03:02 Medical History No [...] ICD10 Code Diagnosis IMO Codes Diagnosis Note [id number] JANE ARENAS APRN [facility] ([facility]) [address] [place] [phone] 5 12/27/2024 11:23:59 12/27/2024 12:16:07 Chronic constipation 593108144 K59.09 [id number] Radha Tierney MD [facility] ([facility]) [address] [place] [phone] 12/30/2024 09:22:14 12/30/2024 09:56:05 Chronic constipation 251504700 K59.09 488467 - Magnesium Citrate and prunes were effective to alleviate symptoms.- Daily MiraLax recommende d; emphasize the importance of daily intake and adequate hydration. - Encourage dietary modificati ons focusing on high fiber for symptom management . Health Concerns Section Related Observation LastModified by Organization Detai ls LastModified Time None Recorded Concern Status LastModified by Organization Details LastModified Time None Recorded Payers Encounter Date Sequence Insurance Name Policy Number Policy Spence Covered Member ID Spence Member ID Guarantor Name 12/30/2024 1 [employer] [place] (MEDICAID REPLACEMENT - HMO) [id number] Barbara Poe [id number] Barbara Poe Notes Date Note Type Note Provider Name and Address Organization Details Recorded Time 12/30/2024 text/html The patient is a 39-year-old female [...] MiraLax daily, albeit inconsistently. Radha Tierney MD [address] [place], [address], [facility] [place] 12/30/2024 09:52:06 OBGyn Episode No OBEpisode recorded.
--- OUTSIDE RECORDS SUMMARY | 2024-12-31 13:21 | XMS_ITS | Continuity of Care Document ---
Author Organization [facility] Adalberto Jackson [facility], [facility]igi, [facility] ([facility]) Address [address] [place] [address] Care Team Providers Care It Architect Name Role Phone RADHA TIERNEY Primary Care Provider Assessment No assessment recorded. Plan of Treatment Reminders Order Date Submit [...] Modified By Organization Details Last Modified Time 12/27/2024 [id number] We discussed magnesium citrate 1/2 bottle ( [...] do an x-ray/. Not available 12/27/2024 12:09:38 Reason for Referral None Reported. Problems Name Problem SNOMED Code Status Onset Date Resolution Date Notes Provider Name and Address Organization Details Recorded Time Heart murmur 28089345 Active 2021 HEART MURMUR; 11/27/19 22 1:11PM by Alda Narayanan, Office Visit; Promoted ; acuity set as *; Lisandra Jere null, [facility] 5 10:01:09 Dysplasti c nevus of skin 887779817 Active 2023 Lisandra rome, [facility] 5 10:00:43 History of substance abuse 524081994 Active 2023 [facility] 5 10:01:33 Insomnia 525402090 Active 2023 TAIWO DLEGADO [facility] 4 08:54:52 Loss of hair 489963258 Completed 202306/13/2024 [facility] 5 10:01:49 Anxiety 29840305 Active 2023 TAIWO DELGADO [facility] 4 08:55:13 Menopausa l symptom 76957545 Active 2023 [facility] 5 10:01:58 Fatigue 60058052 Active 2023 [facility] 5 10:00:52 Secondary amenorrhe a 789017112 Active 2023 [facility] 5 10:02:03 Amenorrhe a 60607844 Completed 202306/13/2024 [facility] 5 09:59:49 Schizophr enia 55378662 Active 2024 ALDA NARAYANAN [facility] 5 11:50:33 External hemorrhoi ds 99692361 Active 2024 Radha Tierney MD [address] [place] [address], [phone] 5, [facility] 15:39:38 Pruritic disorder of skin Active 2024 Radha Tierney MD [address] [place] [address], [phone] 5, [facility] 16:11:51 Gastroeso phageal reflux disease without esophagit is 362175665 Active 2024 Radha Tierney MD [address] [place] [address], [phone] 5, [facility] 09:49:32 Body mass index 30+ - obesity 462232827 Active 2024 Radha Tierney MD [address] [place] [address], [phone] 5, [facility] 09:51:39 Chronic constipat ion 515921523 Active 2024 Radha Tierney MD [address] [place] [address], [phone] 5, [facility] 09:44:19 Problem Notes None recorded. Procedures Surgical History Date Name Laterality Status Provider Name and Address Organization Details Recorded Time 04/14/19 24 jr punch biopsy completed Radha Tierney MD [address] [place] [address], [phone], [facility] 04/16/2023 08:26:16 tonsillectomy completed Augustin Frye [facility] 06/14/2024 11:05:01 extraction of wisdom tooth completed Augustin Frye [facility], [facility] 06/14/2024 11:05:10 section completed Augustin Brunsonell [facility]/14/2024 11:05:24 Imaging Results None recorded. Procedure Notes None recorded. Medical Equipment None Reported. Allergies Allergen ID Allergen Name Allergen Category Reaction Reaction Severity Criticality Documentation Date Start Date Code Code System Note Provider Name and Address Organization Details Recorded Time 08085 tramadol- dietary supp. no.11 medicatio n Not available Not available Not available 10/22/2022 Comme nt: Recor ded 11/26 1:11P M by There sa Narayanan Offic e Visit ; Misty cowan; Davey campos ce: *; Reaso n: Drug aller gy; ; Not Available [facility] 3 02:28:31 Medications Name Sig Start Date [...] 0; Recorded 11/27/19 22 1:12PM by Alda Narayanan, Office Visit; Not Available Not Available Not [...] Organization Details Last Updated DateTime 162.56 cm 28.5 kg/m2 07612.3 3 g 98 % 98 % 86 /min 16 /min 98.2 [degF] 126/66 mm[Hg] Silvia Turner [facility] 11:38:07 Social History Question Answer Notes LastModified by REHAPP Details LastModified Time Tobacco Smoking Status Current Every Day Smoker Melina Nadine Andrew [facility] 12/30/2024 09:37:11 What Is Your Level Of Caffeine Consumption? Moderate [email or web address] Information not available 06/14/2024 Which Illicit Or Recreational Drugs Have You Used? Marijuana Information not available 06/14/2024 What Was The Date Of Your Most Recent Tobacco Screening? 12/30/2024 Information not available 12/30/2024 How Much Tobacco Do You Smoke? 0.25 PPD [email or web address] Information not available 12/30/2024 Sex: Unknown Functional Status Question Answer Note LastModified by [facility] Details LastModified Time Do you use any illicit or recreational drugs? No [email or web address] Information not available 11/13/2024 What is your level of alcohol consumption? None [email or web address] Information not available 06/14/2024 Mental Status None recorded. Family History Relationship Description Onset Age of this Age Resolved Age Notes LastModified by Organization Details LastModified Time Mother Heart disease [email or web address] Not available 2024 11:02:36 Maternal Grandfather Malignant neoplastic disease [email or web address] Not available 2024 11:03:02 Maternal Grandmother Malignant neoplastic disease [email or web address] Not available 2024 11:03:02 Paternal Grandfather Malignant neoplastic disease [email or web address] Not available 2024 11:03:02 Paternal Grandfather Cerebrovascu lar accident Not available 11:03:27 Paternal Grandmother Malignant neoplastic disease [email or web address] Not available 2024 11:03:02 Medical History No [...] ICD10 Code Diagnosis IMO Codes Diagnosis Note [id number] JANE ARENAS APRN [facility]) [address] [place] [phone] 5 12/27/2024 11:23:59 12/27/2024 12:16:07 Chronic constipation 802448964 K59.09 [id number] Health Concerns Section Related Observation LastModified by Organization Detai ls LastModified Time None Recorded Concern Status LastModified by Organization Details LastModified Time None Recorded Payers Encounter Date Sequence Insurance Name Policy Number Policy Spence Covered Member ID Spence Member ID Guarantor Name 12/27/2024 1 [employer] [place] (MEDICA[place] REPLACEMENT - HMO) [id number] Barbara Poe [id number] Barbara Poe Notes Date Note Type Note Provider Name and Address Organization Details Recorded Time text/html ConstipationReported by Patient walk in patientpatient is here today for constipation, patient has not had a bowel movement in 3-4 weeks, patient is on zepbound and taking miralax and OTC laxative and nothing is helping. She is also on methadone. JANE ARENAS APRN [address] [place], [address], [facility], [place] 12/27/2024 12:14:37 OBGyn Episode No OBEpisode recorded.
[2024-12-31 13:29] VITALS: BP 149/91; PULSE 79; TEMP 36.3; O2SAT 100
--- NOTE | 2024-12-31 13:42 | ECG_ITS ---
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 Measurements Intervals [place] Rate: 72 P: 62 MN: 150 QRS: 41 QRSD: 85 T: 57 QT: 393 QTc: 433 Interpretive Statements SINUS RHYTHM Compared to ECG 08/07/2024 17:24:42 Sinus tachycardia no longer present T-wave abnormality no longer present Electronically Signed On 12-31-2024 23:49:55 CDT by Nica Sotomayor M.D. [email or web address]
--- NOTE | 2024-12-31 13:42 | XR_ITS ---
WS: [id number] Portable AP supine chest, 12/31/2024 Clinical Data: chest pain Comparison: Portable chest, 11/22/2023 Findings: No nodules, masses or effusions are seen. The heart is normal. The pulmonary vascularity is not increased. No pneumonia or pneumothorax is seen. Monitor leads are on the chest wall. XR/XR chest 1V portable [id number] Impression: Negative chest.
[2024-12-31 13:47] VITALS: BP 164/93; PULSE 64; RESP 20; O2SAT 100
[2024-12-31 13:51] LABS: Hematocrit 42.8 % (36-47); Hemoglobin 14.30 g/dL (11.27-16.99); Mean Corpuscular HGB Conc 33.4 g/dL (30-55); Mean Corpuscular Hemoglobin 27.3 pg (27-33); Mean Corpuscular Volume 81.7 fl (85-98); Nucleated Red Blood Cells % 0 %; Platelet Count 425 10^3/cmm (157-399); Red Blood Count 5.24 10^6/uL (3.85-5.65); White Blood Count 7.55 10^3/uL (3.29-11.43)
--- NOTE | 2024-12-31 13:56 | ED_ITS ---
HPI - Chest Pain 2 General: Chief Complaint: Chest Pain Stated Complaint: cp Time Seen by Provider: 12/31/24 13:42 History of Present Illness: 39-year-old female presents emergency ro om complaining of chest pain worse when she takes a deep breath or when she moves. She remains very still it does not bother. She denies any radiation of pain to the neck arms or back. No history of any arrhythmias or palpitations. No recent fever sweats chills or cough. Associated symptoms: Deny abdominal pain, dyspnea or fever(s) Related Data Home Medications ?Medication ?Instructions ?Recorded ?Confirmed methadone 40 mg soluble tablet 90 mg PO .morning 05/1012/19/24 tirzepatide (weight loss) 5 mg/0.5 mg SUBCUT 12/19/24 12/19/24 mL subcutaneous pen injector (Zepbound) Previous Rx's ?Medication ?Instructions ?Recorded glycerin (adult) 1 supp ID DAILY PRN constipa tion 08/07/24 #12 ea polyethylene glycol 3350 17 17 g PO DAILY #510 grams 0 08/07/24 gram/dose oral powder (Miralax) atomoxetine 60 mg capsule 60 mg PO DAILY #30 caps 11/26 08/18 clomipramine 50 mg capsule 50 mg PO .HS #30 caps 12/19 hydroxyzine HCl 50 mg tablet 100 mg (2 x 50 mg) PO .HS PRN 12/19/24 insomnia #60 tabs risperidone 1 mg tablet (Risperdal) 1 mg PO BID #60 ta bs 12/19/24 diclofenac sodium 75 mg 75 mg PO Q12H PRN pain #20 t abs 12/31/24 tablet,delayed release Allergies Allergy/AdvReac Type Severity Reaction Status Date / Time tramadol Allergy ADR-Seizure Verified 12/31/24 13:34 quetiapine (From Seroquel) AdvReac ADR-Anxiety Verified 12/31/24 13:34 trazodone AdvReac ADR-Shakine Verified 12/31/24 13:34 ss Review of Systems 2 Const: Denies: fever(s) or chills Card: Reports: chest pain Resp: Denies: dyspnea GI: Denies: abdominal pain : Denies: dysuria, urinary frequency or urinary urgency Musc: Denies: neck pain or back pain Skin/Breast: Denies: rash [facility] ED 2 PFSH: Medical History (Updated 12/31/24 @ 15:39 by Dawit Miller DO) Cannabis use disorder in remission Methamphetamine use disorder, mild, in early remission ADHD, predominantly inattentive type On combination antipsychotic drug therapy Drug abuse Acute psychosis Generalized anxiety disorder with panic attacks Vaping nicotine dependence, tobacco product Long-term current use of methadone for opiate dependence Chronic post-traumatic stress disorder Psychiatric care Social History Smoking and tobacco/nicotine status: current every day tobacco/nicotine user Alcohol intake: current Substance/Drug Use: current Physical Exam 2 Const: GENERAL APPEARANCE: cooperative ORIENTATION/CONSCIOUSNESS: Yes awake, Yes oriented to person, Yes oriented to place and Yes oriented to time HENMT: COMMON NORMALS: normocephalic, atraumatic and hearing grossly normal bilaterally HEAD & SCALP: normocephalic and atraumatic Resp: COMMON NORMALS: normal respiratory effort, No retractions, No use of accessory muscles and clear to auscultation bilaterally AUSCULTATION: clear to auscultation bilaterally Cardio: COMMON NORMALS: regular rate, regular rhythm and No murmurs present (Cardio) RATE: regular rate RHYTHM: regular rhythm GI: COMMON NORMALS: Soft to palpation and No hepatosplenomegaly present A USCULTATION: Yes normoactive bowel sounds PALPATION: Yes Soft to palpation, No Tenderness to palpation present (GI), No Guarding due to palpation present (GI) and Yes No hepatosplenomegaly present Extremity: COMMON NORMALS: normal to inspection, capillary refill normal, no clubbing, cyanosis or edema, no calf tenderness and no pedal edema Neuro: SENSORIUM/ORIENTATION: Yes oriented to person, Yes oriented to place and Yes oriented to time Skin: COMMON NORMALS: no rashes or lesions noted GENERAL SKIN EXAM: no rashes or lesions noted Course 2 Vital Signs: Vital signs: Vital Signs Temperature 97.3 F L 12/31/24 13:29 Pulse Rate 92 12/31/24 14:48 Respiratory Rate 15 12/31/24 14:48 Blood Pressure 113/83 12/31/24 14:48 Pulse Oximetry 95 12/31/24 14:48 Oxygen Delivery Me thod Room Air 12/31/24 14:48 MDM - Chest Pain Medical Decision Making Chest pain is completely resolved she feels much better will discharge her home gave diclofenac to use as needed. EKG and initial cardiac enzyme were negative. White count and chest x-ray normal. There is no pneumonia no pneumothorax no abnormality. Medical Records I reviewed the patient's medical records. Lab Data I reviewed the patient's lab results. 12/31/24 13:44 12/31/24 13:44 Radiology Impressions Chest X-Ray 12/31/24 13:42 Impression: Negative chest. Laboratory Results WBC 7.55 10^3/uL (3.29-11.43) 12/31/24 13:44 RBC 5.24 10^6/uL (3.85-5.65) 12/31/24 13:44 Hgb 14.30 g/dL (11.27-16.99) 12/31/24 13:44 Hct 42.8 % (36-47) 12/31/24 13:44 MCV 81.7 fl (85-98) L 12/31/24 13:44 MCH 27.3 pg (27-33) 12/31/24 13:44 MCHC 33.4 g/dL (30-55) 12/31/24 13:44 RDW 12.3 % (12.1-15.1) 12/31/24 13:44 Plt Count 425 10^3/cmm (157-399) H 12/31/24 13:44 MPV 9.2 fL (7.4-10.4) 12/31/24 13:44 Neut % (Auto) 45.5 % 12/31/24 13:44 Lymph % (Auto) 43.8 % 12/31/24 13:44 Hanson % (Auto) 6.5 % 12/31/24 13:44 Eos % (Auto) 3.0 % 12/31/24 13:44 Baso % (Auto) 1.1 % 12/31/24 13:44 Neut # (Auto) 3.43 10^3/uL (1.8-7.7) 12/31/24 13:44 Lymph # (Auto) 3.3 10^3/uL (0.8-4.8) 12/31/24 13:44 Hanson # (Auto) 0.5 10^3/uL (0.2-0.9) 12/31/24 13:44 Eos # (Auto) 0.2 10^3/uL (0.0-0.8) 12/31/24 13:44 Baso # (Auto) 0.1 10^3/uL (0.0-0.1) 12/31/24 13:44 Nucleated RBC % (auto) 0 % 12/31/24 13:44 Nucleated RBCs # 0.0 /100WBC 12/31/24 13:44 Sodium 140 mmol/L (136-145) 12/31/24 13:44 Potassium 3.8 mmol/L (3.5-5.1) 12/31/24 13:44 Chloride 100 mmol/L (98-107) 12/31/24 13:44 Carbon Dioxide 23 mmol/L (22-29) 12/31/24 13:44 Anion Gap 20.8 (5-19) H 12/31/24 13:44 BUN 10 mg/dL (6-20) 12/31/24 13:44 Creatinine 0.8 mg/dL (0.5-0.9) 12/31/24 13:44 GFR Calculation 80.3 mL/min (90-130) L 12/31/24 13:44 Glucose 129 mg/dL (65-115) H 12/31/24 13:44 Calculated Osmolality 291 mOsm/kg (285-295) 12/31/24 13:44 Calcium 9.9 mg/dL (8.5-10.5) 12/31/24 13:44 Total Bilirubin 0.3 mg/dL (0.15-1.2) 12/31/24 13:44 AST 56 U/L (0-32) H 12/31/24 13:44 ALT 41 U/L (0-33) H 12/31/24 13:44 Alkaline Phosphatase 169 U/L (35-105) H 12/31/24 13:44 Troponin T Baseline < 6 ng/L (0-10) 12/31/24 13:44 Total Protein 7.3 g/dL (6.6-8.7) 12/31/24 13:44 Albumin 4.7 g/dL (3.5-5.2) 12/31/24 13:44 Globulin 2.6 g/dL (1.3-4.6) 12/31/24 13:44 All radiology interpretation(s) finalized by discharge EKG Data EKG 1: Interpretation: EKG 12/31/2024 1315 normal sinus rhythm rate is 72. ID interval 150 QTc 433 compared to EKG 08/07/2024 no changes there is no acute ST changes. EKG 2: Interpretation: EKG 12/31/2024 1535 normal sinus rhythm rate 79 QT 382 ID interval 155. No significant or acute changes no change from EKG done earlier on same day Discharge Plan Discharge Patient Disposition: Home Clinical Impression: Chest pain, musculoskeletal Condition: Stable Prescriptions: New diclofenac sodium 75 mg tablet,delayed release (DR/EC) 75 mg PO Q12H PRN (Reason: pain) Qty: 20 0RF No Action methadone 40 mg tablet,soluble 90 mg PO .morning Zepbound 5 mg/0.5 mL pen injector SUBCUT risperidone [Risperdal] 1 mg tablet 1 mg PO BID Qty: 60 2RF hydroxyzine HCl 50 mg tablet 100 mg PO .HS PRN (Reason: insomnia) Qty: 60 2RF clomipramine 50 mg capsule 50 mg PO .HS Qty: 30 2RF atomoxetine 60 mg capsule 60 mg PO DAILY Qty: 30 2RF polyethylene glycol 3350 [Miralax] 17 gram/dose powder 17 g PO DAILY Qty: 510 0RF Rx Instructions: Take 1-2 scoops daily for the next 3 months to keep stools soft glycerin (adult) Suppository 1 supp ID DAILY PRN (Reason: constipation) Qty: 12 0RF Discharge Orders: Discharge ED (Routine); Ordered 12/31/24 Ordered By: Dawit Miller Referrals: Richard Tierney MD [Primary Care Provider, Family Practice] Discharge Diet: Usual diet Discharge Activity: Resume usual activity Patient Instructions: Opioid Safety, Pain Management, Patient Portal & [place] Instructions Activity Restrictions/Additional Instructions: Thank you for choosing [facility] for your healthcare needs today. It is very important that you follow up as instructed or that you return to the Emergency Department should you have concerns or if your condition changes or worsens in any way. Emergency department visits are focused on emergent conditions, in some cases you may require further evaluation on an outpatient basis. You were seen in the emergency room with complaints of chest pain that were worse with movement and worse with deep inspiration. Your heart enzymes and EKG were normal. Character of your pain is not typical for acute coronary syndrome. Chest x-ray did not show any abnormality. Will discharge you home with anti- inflammatories to use as needed follow-up with your primary care doctor as needed (Please note that included in your discharge packet is information concerning opioid safety and pain management. This information is given to all patients were discharged from the ER regardless of their discharge diagnosis or the medicines they usually take or are prescribed.) Print Language: Swiss Coding Level of Care Code ED Facilities Manager for Chg Fwd Heart Score HEART Score Components History: Slightly Suspicous EKG: Normal Age: Less than 45 yrs Risk Factors: No Risk Factors Known Troponin: Baseline Trop <16 ng/L HEART Score RESULT HEART Score: 0
[2024-12-31 14:11] VITALS: BP 123/56; PULSE 76; RESP 16; O2SAT 96
[2024-12-31 14:19] LABS: Troponin(5th) Baseline < 6 ng/L (0-10)
[2024-12-31 14:20] LABS: Alanine Aminotransferase 41 U/L (0-33); Albumin Level 4.7 g/dL (3.5-5.2); Alkaline Phosphatase 169 U/L (35-105); Anion Gap 20.8 (5-19); Aspartate Amino Transferase 56 U/L (0-32); Blood Urea Nitrogen 10 mg/dL (6-20); Calcium 9.9 mg/dL (8.5-10.5); Carbon Dioxide 23 mmol/L (22-29); Chloride 100 mmol/L (98-107); Creatinine Clr Calc Pharmacy 96.8126; Globulin 2.6 g/dL (1.3-4.6); Glucose 129 mg/dL (65-115); Osmolality Calculated 291 mOsm/kg (285-295); Potassium 3.8 mmol/L (3.5-5.1); Sodium 140 mmol/L (136-145); Total Protein 7.3 g/dL (6.6-8.7)
[2024-12-31 14:48] VITALS: BP 113/83; PULSE 92; RESP 15; O2SAT 95
--- NOTE | 2024-12-31 15:42 | ECG_ITS ---
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 Measurements Intervals [place] Rate: 79 P: 42 CT: 155 QRS: 32 QRSD: 85 T: 46 QT: 382 QTc: 439 Interpretive Statements SINUS RHYTHM Compared to ECG 12/31/2024 13:15:55 No significant changes Electronically Signed On 12-31-2024 23:53:10 CDT by Nica Sotomayor M.D. [email or web address]
[2024-12-31 16:33] VITALS: BP 108/78; PULSE 79; RESP 14; O2SAT 98
== END 2024-12-31 16:34 | disposition home or self-care (01) ==
PROVIDERS: Emergency Provider Family Medicine; PCP Family Medicine
DX: R07.89 Other chest pain (principal); Z72.0 Tobacco use
CPT/HCPCS: 36415; 71045; 80053; 84484; 85025; 93005; 99285; J9999

== ENCOUNTER → 2025-01-30 12:39 | Outpatient (BNVA) | payer BC, SELFPAY | PROVIDERS: PCP Family Medicine; Visit Provider Nurse Practitioner | DX: F90.0 Attention-deficit hyperactivity disorder, predominantly inattentive type (principal) | CPT/HCPCS: 80306 ==

== ENCOUNTER → 2025-02-25 12:10 | Outpatient (BNVA) | payer BC, SELFPAY | PROVIDERS: PCP Family Medicine; Visit Provider Nurse Practitioner | DX: F19.10 Other psychoactive substance abuse, uncomplicated (principal) | CPT/HCPCS: 80306 ==